=== PATIENT | female | born 1950 | race Caucasian/White ===

== ENCOUNTER → 2017-06-11 | Outpatient (CLI) | END | disposition home or self-care (01) ==

== ENCOUNTER → 2017-06-18 | Outpatient (CLI) | payer OTHER ==
[~2017-06-18] MED LIST: ALBU90OI6 INH; AMLO10 PO; AMLO5 PO; AMOCLA875 PO; AMOX500 PO; ASPI325 PO; Adult Low Dose81 MG PO; BUME1 PO; Bactrim Ds Tab1 EACH PO; CARV25 PO; CARV6.25 PO; CEFP200 PO; CEPH500 PO; CHOL10002 PO; CITA20 PO; CLON.1 PO; CLON.5 PO; CLOP75 PO; Carvedilol12.5 MG PO; Citalopram HBr40 MG PO; DOCU100 PO; Desyrel50 MG PO; ENOX120I SQ; FAMO20 PO; FAMO40 PO; FIBER LAXATIVE; FURO20 PO; FURO40 PO; GABA100 PO; GABA300 PO; GAVILAX17 GM PO; GUAI600T33 PO; HYDACE5325 PO; HYDRA25 PO; INSLI100I; INSLI100I SC; INSULANI SC; INSULANPEN SC; ISOMON30 PO; Isosorbide Mono30 MG PO; Keflex500 MG PO; LEVO750 PO; LISI20 PO; LISI5 PO; LOSA25 PO; Lasix20 MG PO; MECL25 PO; METF500 PO; METF500C PO; METO2.5 PO; MULTIVITAMIN; MULVITMIND PO; Milk Of Ma400 MG/5 M PO; Multiple Vitam1 EAC1 PO; NITR.4SL SL; NITR.4TPA TOP; NITROSTAT; Norco 10-325 T1 EACH PO; Novolog Fl100 UNIT/1 SQ; Novolog100 UNIT/2; Nystop60 GM TOP; OMEPRAZOLE MAGN20 MG PO; ONDA4ODT PO; OXYC15ER PO; OXYCODONE IR 5MG; POTCHL10ER PO; POTCHL20ER PO; RANO500T PO; SACC250C PO; SENN187 PO; SIMV40 PO; SPIR25 PO; Solaraze100 GM TOP; TORSE20 PO; TOUJEO SOL300 UNIT/1 SC; Tylenol325 MG PO; WARF1 PO; WARF5 PO; Zofran Odt4 MG SL
== END | disposition home or self-care (01) ==
LOC: LAB 14:44
DX: L08.9 Local infection of the skin and subcutaneous tissue, unspecified (principal)
CPT/HCPCS: 87070; 87075; 87205

== ENCOUNTER 2017-06-19 11:41 | Emergency (ER) | payer OTHER ==
[~2017-06-19] VITALS: Ht 157.5 cm; Wt 120.2 kg
[~2017-06-19 11:41] MED LIST changes: -ALBU90OI6 INH; -BUME1 PO; -CEFP200 PO; -CEPH500 PO; -Carvedilol12.5 MG PO; -Citalopram HBr40 MG PO; -GAVILAX17 GM PO; -GUAI600T33 PO; -LEVO750 PO; -LOSA25 PO; -METO2.5 PO; -Milk Of Ma400 MG/5 M PO; -Novolog100 UNIT/2; -Nystop60 GM TOP; -ONDA4ODT PO; -SENN187 PO; -Solaraze100 GM TOP; -TORSE20 PO; -Tylenol325 MG PO
[2017-06-19] MEDS ORDERED: CEPH500 PO (13:30)
[2017-06-19] MEDS ORDERED: FURO40 PO (13:31)
[2017-06-19] MEDS ORDERED: Solaraze100 GM TOP (13:38)
[2018-03-06] MEDS ORDERED: GUAI600T33 PO (16:32)
[2018-03-06] MEDS ORDERED: CEFP200 PO (16:32)
[2018-03-06] MEDS ORDERED: LEVO750 PO (16:32)
[2018-03-06] MEDS ORDERED: SACC250C PO (16:33)
[2018-03-06] MEDS ORDERED: LOSA25 PO (16:38)
== END 2017-06-19 14:59 | disposition home or self-care (01) ==
LOC: ER 11:41
DX: L72.9 Follicular cyst of the skin and subcutaneous tissue, unspecified (principal); R06.02 Shortness of breath; E66.01 Morbid (severe) obesity due to excess calories; Z86.73 Personal history of transient ischemic attack (TIA), and cerebral infarction without residual deficits; R53.1 Weakness; Z89.611 Acquired absence of right leg above knee; Z88.1 Allergy status to other antibiotic agents; Z88.5 Allergy status to narcotic agent; Z87.891 Personal history of nicotine dependence; Z88.8 Allergy status to other drugs, medicaments and biological substances; Z91.013 Allergy to seafood; Z91.018 Allergy to other foods; Z79.899 Other long term (current) drug therapy; Z79.891 Long term (current) use of opiate analgesic; Z79.82 Long term (current) use of aspirin; Z79.4 Long term (current) use of insulin; E11.9 Type 2 diabetes mellitus without complications; I10 Essential (primary) hypertension; E78.00 Pure hypercholesterolemia, unspecified
CPT/HCPCS: 10061; 99283

== ENCOUNTER 2017-09-03 15:23 | Inpatient (IN) | payer OTHER ==
[~2017-09-03] VITALS: Ht 157.5 cm; Wt 117.7 kg
[~2017-09-03 15:23] MED LIST changes: +CEPH500 PO; +Solaraze100 GM TOP
[2017-09-03] MEDS ORDERED: ALBU90OI6 INH (15:51)
[2017-09-03 16:13] LABS: BASOPHILS ABSOLUTE AUTO 0.09 K/mm3 (0.00-0.23); BASOPHILS PERCENT AUTO 1 % (0-2); EOSINOPHILS ABSOLUTE AUTO 0.21 K/mm3 (0.00-0.68); EOSINOPHILS PERCENT AUTO 3 % (0-6); Hematocrit 35.7 % (33.0-51.0); Hemoglobin 11.6 g/dL (11.5-16.0); IMMATURE GRAN ABSOLUTE AUTO 0.04 K/mm3 (0.00-0.10); IMMATURE GRAN PERCENT AUTO 1 % (0-1); LYMPHOCYTES ABSOLUTE AUTO 0.85 K/mm3 (0.84-5.20); LYMPHOCYTES PERCENT AUTO 11 % (21-46); MONOCYTES ABSOLUTE AUTO 0.97 K/mm3 (0.16-1.47); MONOCYTES PERCENT AUTO 13 % (4-13); Mean Corpuscular HGB 27.6 pg (26.0-34.0); Mean Corpuscular HGB Conc 32.5 g/dL (31.5-36.5); Mean Corpuscular Volume 85 fL (80-100); Mean Platelet Volume 11.4 fL (9.1-12.4); NEUTROPHILS ABSOLUTE AUTO 5.54 K/mm3 (1.96-9.15); NEUTROPHILS PERCENT AUTO 72 % (41-73); Platelet Count 202 K/mm3 (150-400); RDW Coefficient Variation 16.3 % (11.7-14.2)
[2017-09-03 16:30] LABS: Troponin I <0.015 ng/mL (0.000-0.040)
[2017-09-03 16:31] LABS: Alanine Aminotransfer (ALT/SGP 14 U/L (12-78); Albumin, Blood 3.5 g/dL (3.4-5.0); Albumin/Globulin Ratio 0.8 (0.8-1.8); Alk Phos 169 U/L (50-136); Anion Gap 10 mmol/L (6-16); Aspartate Aminotrans (AST/SGOT 11 U/L (12-37); Bilirubin, Total 0.9 mg/dL (0.1-1.0); Blood Urea Nitrogen 33 mg/dL (8-24); Bun/Creatinine Ratio 31.7 (12.0-20.0); CO2, Blood 20 mmol/L (21-32); Chloride, Blood 102 mmol/L (98-108); Creatinine, Blood 1.04 mg/dL (0.40-1.00); Globulin, Blood 4.5 g/dL (2.2-4.0); Glomerular Filtration Rate 56 (60-); Glucose, Blood 230 mg/dL (70-99); Potassium, Blood 4.7 mmol/L (3.5-5.5); Sodium, Blood 132 mmol/L (136-145)
[2017-09-04 00:20] LABS: CPK Creatine Kinase 35 U/L (26-193); Creatine Kinase MB 1.3 ng/mL (0.0-3.6); Creatine Kinase MB Index 3.7 (0.0-4.0); Troponin I <0.015 ng/mL (0.000-0.040)
[2017-09-04 07:43] LABS: Hemoglobin 11.2 g/dL (11.5-16.0); Mean Corpuscular Volume 84 fL (80-100); Mean Platelet Volume 10.3 fL (9.1-12.4); Platelet Count 196 K/mm3 (150-400); RDW Coefficient Variation 16.2 % (11.7-14.2); RDW Standard Deviation 50.3 fL (35.1-46.3); Red Blood Cell Count 4.15 M/mm3 (3.80-5.20); White Blood Cell Count 6.77 K/mm3 (4.00-11.30)
[2017-09-04 07:59] LABS: CPK Creatine Kinase 39 U/L (26-193); Creatine Kinase MB 1.6 ng/mL (0.0-3.6); Creatine Kinase MB Index 4.1 (0.0-4.0); Troponin I <0.015 ng/mL (0.000-0.040)
[2017-09-04 11:33] LABS: Anion Gap 8 mmol/L (6-16); Blood Urea Nitrogen 31 mg/dL (8-24); Bun/Creatinine Ratio 30.4 (12.0-20.0); CO2, Blood 21 mmol/L (21-32); Calcium, Blood 8.7 mg/dL (8.5-10.1); Chloride, Blood 103 mmol/L (98-108); Creatinine, Blood 1.02 mg/dL (0.40-1.00); Glomerular Filtration Rate 58 (60-); Glucose, Blood 129 mg/dL (70-99); Potassium, Blood 4.4 mmol/L (3.5-5.5); Sodium, Blood 132 mmol/L (136-145)
[2017-09-04 12:05] LABS: Phosphorus, Blood 3.6 mg/dL (2.5-4.9)
[2017-09-04 12:06] LABS: Albumin, Blood 3.5 g/dL (3.4-5.0)
[2017-09-05 05:46] LABS: Albumin, Blood 3.4 g/dL (3.4-5.0); Anion Gap 9 mmol/L (6-16); Blood Urea Nitrogen 31 mg/dL (8-24); Bun/Creatinine Ratio 27.9 (12.0-20.0); CO2, Blood 21 mmol/L (21-32); Calcium, Blood 8.9 mg/dL (8.5-10.1); Chloride, Blood 102 mmol/L (98-108); Creatinine, Blood 1.11 mg/dL (0.40-1.00); Glomerular Filtration Rate 52 (60-); Glucose, Blood 179 mg/dL (70-99); Magnesium, Blood 2.3 mg/dL (1.6-2.4); Phosphorus, Blood 3.9 mg/dL (2.5-4.9); Potassium, Blood 4.2 mmol/L (3.5-5.5); Sodium, Blood 132 mmol/L (136-145)
[2017-09-07 05:56] LABS: BASOPHILS ABSOLUTE AUTO 0.12 K/mm3 (0.00-0.23); BASOPHILS PERCENT AUTO 2 % (0-2); EOSINOPHILS ABSOLUTE AUTO 0.35 K/mm3 (0.00-0.68); EOSINOPHILS PERCENT AUTO 5 % (0-6); Hematocrit 35.8 % (33.0-51.0); Hemoglobin 11.6 g/dL (11.5-16.0); IMMATURE GRAN ABSOLUTE AUTO 0.04 K/mm3 (0.00-0.10); IMMATURE GRAN PERCENT AUTO 1 % (0-1); LYMPHOCYTES ABSOLUTE AUTO 1.22 K/mm3 (0.84-5.20); LYMPHOCYTES PERCENT AUTO 17 % (21-46); MONOCYTES ABSOLUTE AUTO 1.04 K/mm3 (0.16-1.47); MONOCYTES PERCENT AUTO 14 % (4-13); Mean Corpuscular HGB 27.2 pg (26.0-34.0); Mean Corpuscular HGB Conc 32.4 g/dL (31.5-36.5); Mean Corpuscular Volume 84 fL (80-100); Mean Platelet Volume 11.2 fL (9.1-12.4); NEUTROPHILS ABSOLUTE AUTO 4.61 K/mm3 (1.96-9.15); NEUTROPHILS PERCENT AUTO 63 % (41-73); Platelet Count 193 K/mm3 (150-400); RDW Coefficient Variation 16.5 % (11.7-14.2); RDW Standard Deviation 50.1 fL (35.1-46.3); Red Blood Cell Count 4.27 M/mm3 (3.80-5.20); White Blood Cell Count 7.38 K/mm3 (4.00-11.30)
[2017-09-07 06:15] LABS: Albumin, Blood 3.8 g/dL (3.4-5.0); Albumin/Globulin Ratio 0.9 (0.8-1.8); Bilirubin, Total 0.7 mg/dL (0.1-1.0); Bun/Creatinine Ratio 28.3 (12.0-20.0); Calcium, Blood 8.8 mg/dL (8.5-10.1); Creatinine, Blood 1.27 mg/dL (0.40-1.00); Globulin, Blood 4.3 g/dL (2.2-4.0); Potassium, Blood 4.6 mmol/L (3.5-5.5); Total Protein, Blood 8.1 g/dL (6.4-8.2)
[2017-09-07] MEDS ORDERED: GAVILAX17 GM PO (13:19)
== END 2017-09-07 16:59 | disposition home health service (06) | DRG 292 ==
LOC: ER 15:23 → MEDS 19:02 → ENPENDDIS 09-07 09:30 → MEDS 09-07 16:59
PROVIDERS: Emergency Medicine; Internal Medicine
DX: I11.0 Hypertensive heart disease with heart failure (principal); I69.951 Hemiplegia and hemiparesis following unspecified cerebrovascular disease affecting right dominant side; N17.9 Acute kidney failure, unspecified; E87.1 Hypo-osmolality and hyponatremia; J98.11 Atelectasis; Z68.41 Body mass index [BMI] 40.0-44.9, adult; I50.33 Acute on chronic diastolic (congestive) heart failure; E66.01 Morbid (severe) obesity due to excess calories; E78.5 Hyperlipidemia, unspecified; E11.42 Type 2 diabetes mellitus with diabetic polyneuropathy; E11.51 Type 2 diabetes mellitus with diabetic peripheral angiopathy without gangrene; I25.10 Atherosclerotic heart disease of native coronary artery without angina pectoris; G47.33 Obstructive sleep apnea (adult) (pediatric); K21.9 Gastro-esophageal reflux disease without esophagitis; G89.29 Other chronic pain; R10.9 Unspecified abdominal pain; F32.9 Major depressive disorder, single episode, unspecified; Z89.511 Acquired absence of right leg below knee; E11.65 Type 2 diabetes mellitus with hyperglycemia; Z74.01 Bed confinement status; Z99.3 Dependence on wheelchair; Z95.1 Presence of aortocoronary bypass graft; Z88.8 Allergy status to other drugs, medicaments and biological substances; Z88.5 Allergy status to narcotic agent; Z91.013 Allergy to seafood; Z91.018 Allergy to other foods; Z79.82 Long term (current) use of aspirin; Z79.4 Long term (current) use of insulin; Z79.899 Other long term (current) drug therapy; Z87.891 Personal history of nicotine dependence; Z85.038 Personal history of other malignant neoplasm of large intestine
CPT/HCPCS: 36415; 71045; 74176; 80053; 80069; 82550; 82553; 82947; 83690; 83735; 83880; 84145; 84443; 84484; 85025; 85027; 92526; 92610; 93005; 93010; 94640; 94760; 94762; 99285; C8929; G8996; G8997; G8998; J0696; J1650; J1940; J7030; Q9957

== ENCOUNTER → 2017-09-19 | Outpatient (CLI) | payer OTHER ==
[~2017-09-19] MED LIST changes: +ALBU90OI6 INH; +GAVILAX17 GM PO
[2017-09-19 16:03] LABS: Bun/Creatinine Ratio 22.5 (12.0-20.0); Calcium, Blood 9.1 mg/dL (8.5-10.1); Creatinine, Blood 1.02 mg/dL (0.40-1.00); Potassium, Blood 5.1 mmol/L (3.5-5.5)
== END ==
LOC: LAB SHORT 15:28 → LAB 15:28
PROVIDERS: Registered Nurse
DX: R60.9 Edema, unspecified (principal)
CPT/HCPCS: 80048; 83880

== ENCOUNTER → 2017-10-10 | Outpatient (CLI) | payer OTHER ==
[2017-10-11 13:43] LABS: Bun/Creatinine Ratio 40.4 (12.0-20.0); Creatinine, Blood 1.14 mg/dL (0.40-1.00); Potassium, Blood 4.4 mmol/L (3.5-5.5)
== END ==
LOC: LAB 12:25 → LAB SHORT 12:25
PROVIDERS: Registered Nurse
DX: I50.9 Heart failure, unspecified (principal)
CPT/HCPCS: 80048

== ENCOUNTER 2017-11-17 07:17 | Inpatient (IN) | payer OTHER ==
[~2017-11-17] VITALS: Ht 157.5 cm; Wt 112.5 kg
[2017-11-17 08:05] LABS: BASOPHILS ABSOLUTE AUTO 0.06 K/mm3 (0.00-0.23); BASOPHILS PERCENT AUTO 1 % (0-2); EOSINOPHILS ABSOLUTE AUTO 0.19 K/mm3 (0.00-0.68); EOSINOPHILS PERCENT AUTO 2 % (0-6); Hemoglobin 11.1 g/dL (11.5-16.0); IMMATURE GRAN ABSOLUTE AUTO 0.07 K/mm3 (0.00-0.10); IMMATURE GRAN PERCENT AUTO 1 % (0-1); LYMPHOCYTES ABSOLUTE AUTO 0.61 K/mm3 (0.84-5.20); LYMPHOCYTES PERCENT AUTO 5 % (21-46); MONOCYTES ABSOLUTE AUTO 1.36 K/mm3 (0.16-1.47); MONOCYTES PERCENT AUTO 11 % (4-13); Mean Corpuscular HGB 26.7 pg (26.0-34.0); Mean Corpuscular HGB Conc 32.6 g/dL (31.5-36.5); Mean Corpuscular Volume 82 fL (80-100); Mean Platelet Volume 11.7 fL (9.1-12.4); NEUTROPHILS ABSOLUTE AUTO 9.93 K/mm3 (1.96-9.15); NEUTROPHILS PERCENT AUTO 81 % (41-73); Platelet Count 187 K/mm3 (150-400); RDW Standard Deviation 44.6 fL (35.1-46.3); Red Blood Cell Count 4.16 M/mm3 (3.80-5.20); White Blood Cell Count 12.22 K/mm3 (4.00-11.30)
[2017-11-17 08:22] LABS: Albumin, Blood 3.5 g/dL (3.4-5.0); Albumin/Globulin Ratio 0.8 (0.8-1.8); Bilirubin, Total 1.2 mg/dL (0.1-1.0); Bun/Creatinine Ratio 27.7 (12.0-20.0); Calcium, Blood 8.7 mg/dL (8.5-10.1); Creatinine, Blood 1.73 mg/dL (0.40-1.00); Globulin, Blood 4.4 g/dL (2.2-4.0); Potassium, Blood 5.1 mmol/L (3.5-5.5); Total Protein, Blood 7.9 g/dL (6.4-8.2)
[2017-11-17 08:33] LABS: International Normalized Ratio 1.31; Prothrombin Time Results 13.3 Sec (9.7-11.5)
[2017-11-17] MEDS ORDERED: Citalopram HBr40 MG PO (09:35)
[2017-11-17] MEDS ORDERED: Norco 10-325 T1 EACH PO (09:36)
[2017-11-17] MEDS ORDERED: TOUJEO SOL300 UNIT/1 SC (09:46)
[2017-11-17] MEDS ORDERED: Novolog100 UNIT/2 (09:47)
[2017-11-17] MEDS ORDERED: TORSE20 PO (09:49)
[2017-11-17] MEDS ORDERED: LISI20 PO (09:49)
[2017-11-17] MEDS ORDERED: Carvedilol12.5 MG PO (09:50)
[2017-11-17] MEDS ORDERED: CARV6.25 PO (09:50)
[2017-11-17] MEDS ORDERED: AMLO10 PO (09:51)
[2017-11-18 04:54] LABS: BASOPHILS ABSOLUTE AUTO 0.07 K/mm3 (0.00-0.23); BASOPHILS PERCENT AUTO 1 % (0-2); EOSINOPHILS ABSOLUTE AUTO 0.24 K/mm3 (0.00-0.68); EOSINOPHILS PERCENT AUTO 2 % (0-6); Hematocrit 32.7 % (33.0-51.0); Hemoglobin 10.7 g/dL (11.5-16.0); IMMATURE GRAN ABSOLUTE AUTO 0.08 K/mm3 (0.00-0.10); IMMATURE GRAN PERCENT AUTO 1 % (0-1); LYMPHOCYTES PERCENT AUTO 6 % (21-46); MONOCYTES PERCENT AUTO 13 % (4-13); Mean Corpuscular HGB 27.1 pg (26.0-34.0); Mean Corpuscular HGB Conc 32.7 g/dL (31.5-36.5); Mean Corpuscular Volume 83 fL (80-100); Mean Platelet Volume 11.8 fL (9.1-12.4); NEUTROPHILS ABSOLUTE AUTO 10.01 K/mm3 (1.96-9.15); NEUTROPHILS PERCENT AUTO 78 % (41-73); Platelet Count 175 K/mm3 (150-400); RDW Standard Deviation 45.6 fL (35.1-46.3); Red Blood Cell Count 3.95 M/mm3 (3.80-5.20)
[2017-11-18 05:12] LABS: Bun/Creatinine Ratio 27.7 (12.0-20.0); Calcium, Blood 8.7 mg/dL (8.5-10.1); Creatinine, Blood 2.02 mg/dL (0.40-1.00); Potassium, Blood 5.1 mmol/L (3.5-5.5)
[2017-11-19 05:25] LABS: BASOPHILS ABSOLUTE AUTO 0.08 K/mm3 (0.00-0.23); BASOPHILS PERCENT AUTO 0 % (0-2); EOSINOPHILS ABSOLUTE AUTO 0.24 K/mm3 (0.00-0.68); EOSINOPHILS PERCENT AUTO 1 % (0-6); Hematocrit 31.7 % (33.0-51.0); Hemoglobin 10.4 g/dL (11.5-16.0); IMMATURE GRAN ABSOLUTE AUTO 0.17 K/mm3 (0.00-0.10); IMMATURE GRAN PERCENT AUTO 1 % (0-1); LYMPHOCYTES ABSOLUTE AUTO 0.89 K/mm3 (0.84-5.20); LYMPHOCYTES PERCENT AUTO 5 % (21-46); MONOCYTES ABSOLUTE AUTO 2.66 K/mm3 (0.16-1.47); MONOCYTES PERCENT AUTO 15 % (4-13); Mean Corpuscular HGB 27.5 pg (26.0-34.0); Mean Corpuscular HGB Conc 32.8 g/dL (31.5-36.5); Mean Corpuscular Volume 84 fL (80-100); Mean Platelet Volume 11.6 fL (9.1-12.4); NEUTROPHILS ABSOLUTE AUTO 13.95 K/mm3 (1.96-9.15); NEUTROPHILS PERCENT AUTO 78 % (41-73); Platelet Count 185 K/mm3 (150-400); RDW Coefficient Variation 15.3 % (11.7-14.2); RDW Standard Deviation 46.9 fL (35.1-46.3); Red Blood Cell Count 3.78 M/mm3 (3.80-5.20); White Blood Cell Count 17.99 K/mm3 (4.00-11.30)
[2017-11-19 05:35] LABS: Bun/Creatinine Ratio 27.8 (12.0-20.0); Calcium, Blood 8.3 mg/dL (8.5-10.1); Creatinine, Blood 2.3 mg/dL (0.40-1.00); Potassium, Blood 5.6 mmol/L (3.5-5.5)
[2017-11-19 17:29] LABS: Anion Gap 10 mmol/L (6-16); Blood Urea Nitrogen 69 mg/dL (8-24); Bun/Creatinine Ratio 27.3 (12.0-20.0); CO2, Blood 23 mmol/L (21-32); CPK Creatine Kinase 36 U/L (26-193); Calcium, Blood 8.9 mg/dL (8.5-10.1); Chloride, Blood 91 mmol/L (98-108); Creatinine, Blood 2.53 mg/dL (0.40-1.00); Glomerular Filtration Rate 20 (60-); Glucose, Blood 95 mg/dL (70-99); Phosphorus, Blood 4.5 mg/dL (2.5-4.9); Potassium, Blood 5.8 mmol/L (3.5-5.5); Sodium, Blood 124 mmol/L (136-145)
[2017-11-19 18:00] LABS: PCO2 Arterial 36.5 mmHg (35-45); PO2 Arterial 90.4 mmHg (80-100); pH Blood Arterial 7.35 (7.35-7.45)
[2017-11-19 18:15] LABS: Appearance, Urine Clear (Clear); Blood, Urine Neg (Neg); Color, Urine Yellow (P-Yellow); Glucose Qualitative, Urine Neg (Neg); Ketones, Urine 1+ (Neg); Leukocyte Esterase, Urine 1+ (Neg); Nitrite, Urine Neg (Neg); Protein, Urine 1+ (Neg); Urobilinogen, Urine NORM (Normal)
[2017-11-19 18:21] LABS: Bilirubin, Urine 1+ (Neg)
[2017-11-19 18:22] LABS: Bacteria Few /hpf; Red Blood Cells, Urine 0-2 /hpf (0-2); Squamous Epithelial Cells Many /hpf (Few); White Blood Cells, Urine 0-2 /hpf (0-5)
[2017-11-19 18:54] LABS: Osmolality, Urine 308 mos/kg (15-1400); Sodium, Urine, Random 16 mmol/L (20-110)
[2017-11-20 05:17] LABS: Albumin, Blood 2.9 g/dL (3.4-5.0); Anion Gap 12 mmol/L (6-16); Blood Urea Nitrogen 69 mg/dL (8-24); Bun/Creatinine Ratio 27.8 (12.0-20.0); CO2, Blood 21 mmol/L (21-32); Calcium, Blood 8.4 mg/dL (8.5-10.1); Chloride, Blood 91 mmol/L (98-108); Creatinine, Blood 2.48 mg/dL (0.40-1.00); Glomerular Filtration Rate 21 (60-); Glucose, Blood 123 mg/dL (70-99); Phosphorus, Blood 4.1 mg/dL (2.5-4.9); Potassium, Blood 5.4 mmol/L (3.5-5.5); Sodium, Blood 124 mmol/L (136-145)
[2017-11-20 15:51] LABS: BASOPHILS ABSOLUTE AUTO 0.06 K/mm3 (0.00-0.23); BASOPHILS PERCENT AUTO 0 % (0-2); EOSINOPHILS ABSOLUTE AUTO 0.19 K/mm3 (0.00-0.68); EOSINOPHILS PERCENT AUTO 1 % (0-6); Hemoglobin 10.1 g/dL (11.5-16.0); IMMATURE GRAN ABSOLUTE AUTO 0.25 K/mm3 (0.00-0.10); IMMATURE GRAN PERCENT AUTO 1 % (0-1); LYMPHOCYTES ABSOLUTE AUTO 0.74 K/mm3 (0.84-5.20); LYMPHOCYTES PERCENT AUTO 4 % (21-46); MONOCYTES ABSOLUTE AUTO 2.54 K/mm3 (0.16-1.47); MONOCYTES PERCENT AUTO 14 % (4-13); Mean Corpuscular HGB 27.2 pg (26.0-34.0); Mean Corpuscular HGB Conc 33.7 g/dL (31.5-36.5); Mean Platelet Volume 10.8 fL (9.1-12.4); NEUTROPHILS ABSOLUTE AUTO 14.34 K/mm3 (1.96-9.15); NEUTROPHILS PERCENT AUTO 79 % (41-73); Platelet Count 181 K/mm3 (150-400); RDW Coefficient Variation 14.9 % (11.7-14.2); RDW Standard Deviation 43.7 fL (35.1-46.3); Red Blood Cell Count 3.71 M/mm3 (3.80-5.20); White Blood Cell Count 18.12 K/mm3 (4.00-11.30)
[2017-11-20 16:02] LABS: Mean Corpuscular Volume 81 fL (80-100)
[2017-11-21 04:11] LABS: BASOPHILS ABSOLUTE AUTO 0.05 K/mm3 (0.00-0.23); BASOPHILS PERCENT AUTO 0 % (0-2); EOSINOPHILS ABSOLUTE AUTO 0.26 K/mm3 (0.00-0.68); EOSINOPHILS PERCENT AUTO 2 % (0-6); Hematocrit 29.8 % (33.0-51.0); Hemoglobin 10.2 g/dL (11.5-16.0); IMMATURE GRAN ABSOLUTE AUTO 0.33 K/mm3 (0.00-0.10); IMMATURE GRAN PERCENT AUTO 2 % (0-1); LYMPHOCYTES ABSOLUTE AUTO 0.96 K/mm3 (0.84-5.20); LYMPHOCYTES PERCENT AUTO 6 % (21-46); MONOCYTES PERCENT AUTO 13 % (4-13); Mean Corpuscular HGB 27.4 pg (26.0-34.0); Mean Corpuscular HGB Conc 34.2 g/dL (31.5-36.5); Mean Corpuscular Volume 80 fL (80-100); Mean Platelet Volume 10.7 fL (9.1-12.4); NEUTROPHILS ABSOLUTE AUTO 13.53 K/mm3 (1.96-9.15); NEUTROPHILS PERCENT AUTO 78 % (41-73); Platelet Count 197 K/mm3 (150-400); RDW Coefficient Variation 14.7 % (11.7-14.2); Red Blood Cell Count 3.72 M/mm3 (3.80-5.20); White Blood Cell Count 17.33 K/mm3 (4.00-11.30)
[2017-11-21 04:27] LABS: Bun/Creatinine Ratio 27.8 (12.0-20.0); Calcium, Blood 8.2 mg/dL (8.5-10.1); Creatinine, Blood 2.48 mg/dL (0.40-1.00); Potassium, Blood 4.8 mmol/L (3.5-5.5)
[2017-11-21 17:57] LABS: Albumin, Blood 2.6 g/dL (3.4-5.0); Anion Gap 12 mmol/L (6-16); Blood Urea Nitrogen 70 mg/dL (8-24); Bun/Creatinine Ratio 24.7 (12.0-20.0); CO2, Blood 22 mmol/L (21-32); Calcium, Blood 8.8 mg/dL (8.5-10.1); Chloride, Blood 88 mmol/L (98-108); Creatinine, Blood 2.83 mg/dL (0.40-1.00); Glomerular Filtration Rate 18 (60-); Glucose, Blood 118 mg/dL (70-99); Phosphorus, Blood 3.8 mg/dL (2.5-4.9); Potassium, Blood 4.9 mmol/L (3.5-5.5); Sodium, Blood 122 mmol/L (136-145)
[2017-11-22 05:02] LABS: BASOPHILS ABSOLUTE AUTO 0.07 K/mm3 (0.00-0.23); BASOPHILS PERCENT AUTO 0 % (0-2); EOSINOPHILS ABSOLUTE AUTO 0.33 K/mm3 (0.00-0.68); EOSINOPHILS PERCENT AUTO 2 % (0-6); Hematocrit 29.6 % (33.0-51.0); Hemoglobin 10.2 g/dL (11.5-16.0); IMMATURE GRAN PERCENT AUTO 3 % (0-1); LYMPHOCYTES ABSOLUTE AUTO 0.92 K/mm3 (0.84-5.20); LYMPHOCYTES PERCENT AUTO 6 % (21-46); MONOCYTES ABSOLUTE AUTO 1.85 K/mm3 (0.16-1.47); MONOCYTES PERCENT AUTO 11 % (4-13); Mean Corpuscular HGB 27.3 pg (26.0-34.0); Mean Corpuscular HGB Conc 34.5 g/dL (31.5-36.5); Mean Corpuscular Volume 79 fL (80-100); NEUTROPHILS ABSOLUTE AUTO 13.15 K/mm3 (1.96-9.15); NEUTROPHILS PERCENT AUTO 78 % (41-73); Platelet Count 210 K/mm3 (150-400); RDW Coefficient Variation 14.7 % (11.7-14.2); RDW Standard Deviation 42.8 fL (35.1-46.3); Red Blood Cell Count 3.73 M/mm3 (3.80-5.20); White Blood Cell Count 16.82 K/mm3 (4.00-11.30)
[2017-11-22 05:14] LABS: Bun/Creatinine Ratio 24.3 (12.0-20.0); Calcium, Blood 8.4 mg/dL (8.5-10.1); Creatinine, Blood 2.92 mg/dL (0.40-1.00); Potassium, Blood 4.9 mmol/L (3.5-5.5)
[2017-11-22 13:09] LABS: ALBUMIN 3.2 g/dL (2.9-4.4); ALPHA-1-GLOBULIN 0.4 g/dL (0.0-0.4); ALPHA-2-GLOBULIN 0.6 g/dL (0.4-1.0); BETA GLOBULIN 0.9 g/dL (0.7-1.3); GAMMA GLOBULIN 1.5 g/dL (0.4-1.8); GLOBULIN, TOTAL 3.4 g/dL (2.2-3.9); IMMUNOGLOBULIN A, QN, SERUM 364 mg/dL (87-352); IMMUNOGLOBULIN G, QN, SERUM 1226 mg/dL (700-1600); IMMUNOGLOBULIN M, QN, SERUM 168 mg/dL (26-217); M-SPIKE Not Observed g/dL (Not Observed); PROTEIN, TOTAL, SERUM 6.6 g/dL (6.0-8.5)
[2017-11-22 13:43] LABS: PCO2 Arterial 38.7 mmHg (35-45); pH Blood Arterial 7.37 (7.35-7.45)
[2017-11-23 04:58] LABS: BASOPHILS ABSOLUTE AUTO 0.05 K/mm3 (0.00-0.23); BASOPHILS PERCENT AUTO 0 % (0-2); EOSINOPHILS ABSOLUTE AUTO 0.28 K/mm3 (0.00-0.68); EOSINOPHILS PERCENT AUTO 2 % (0-6); Hematocrit 28.9 % (33.0-51.0); IMMATURE GRAN PERCENT AUTO 3 % (0-1); LYMPHOCYTES ABSOLUTE AUTO 0.86 K/mm3 (0.84-5.20); LYMPHOCYTES PERCENT AUTO 6 % (21-46); MONOCYTES PERCENT AUTO 10 % (4-13); Mean Corpuscular HGB 27.2 pg (26.0-34.0); Mean Corpuscular HGB Conc 34.6 g/dL (31.5-36.5); Mean Corpuscular Volume 79 fL (80-100); Mean Platelet Volume 10.4 fL (9.1-12.4); NEUTROPHILS ABSOLUTE AUTO 12.05 K/mm3 (1.96-9.15); NEUTROPHILS PERCENT AUTO 80 % (41-73); Platelet Count 202 K/mm3 (150-400); RDW Coefficient Variation 14.6 % (11.7-14.2); RDW Standard Deviation 42.3 fL (35.1-46.3); Red Blood Cell Count 3.67 M/mm3 (3.80-5.20); White Blood Cell Count 15.14 K/mm3 (4.00-11.30)
[2017-11-23 05:23] LABS: Anion Gap 13 mmol/L (6-16); Blood Urea Nitrogen 75 mg/dL (8-24); Bun/Creatinine Ratio 23.4 (12.0-20.0); CO2, Blood 20 mmol/L (21-32); Calcium, Blood 8.2 mg/dL (8.5-10.1); Chloride, Blood 87 mmol/L (98-108); Glomerular Filtration Rate 15 (60-); Glucose, Blood 89 mg/dL (70-99); Potassium, Blood 5.1 mmol/L (3.5-5.5); Sodium, Blood 120 mmol/L (136-145); Vancomycin, Random 13.4 ug/mL
[2017-11-23 17:33] LABS: Eosinophils-Raw #,Urine 11
[2017-11-23 17:51] LABS: White Blood Cells Urine 0-2 /hpf (0-5)
[2017-11-23 18:27] LABS: CPK Creatine Kinase 24 U/L (26-193); Lactate Dehydrogenase (Ld),Bld 132 U/L (100-240)
[2017-11-24 04:54] LABS: BASOPHILS ABSOLUTE AUTO 0.07 K/mm3 (0.00-0.23); BASOPHILS PERCENT AUTO 1 % (0-2); EOSINOPHILS ABSOLUTE AUTO 0.27 K/mm3 (0.00-0.68); EOSINOPHILS PERCENT AUTO 2 % (0-6); IMMATURE GRAN ABSOLUTE AUTO 0.46 K/mm3 (0.00-0.10); IMMATURE GRAN PERCENT AUTO 4 % (0-1); LYMPHOCYTES ABSOLUTE AUTO 1.01 K/mm3 (0.84-5.20); LYMPHOCYTES PERCENT AUTO 8 % (21-46); MONOCYTES ABSOLUTE AUTO 1.11 K/mm3 (0.16-1.47); MONOCYTES PERCENT AUTO 9 % (4-13); Mean Corpuscular HGB 27.3 pg (26.0-34.0); Mean Corpuscular HGB Conc 34.5 g/dL (31.5-36.5); Mean Corpuscular Volume 79 fL (80-100); Mean Platelet Volume 10.7 fL (9.1-12.4); NEUTROPHILS ABSOLUTE AUTO 10.14 K/mm3 (1.96-9.15); NEUTROPHILS PERCENT AUTO 78 % (41-73); Platelet Count 196 K/mm3 (150-400); RDW Coefficient Variation 14.7 % (11.7-14.2); RDW Standard Deviation 42.5 fL (35.1-46.3); Red Blood Cell Count 3.66 M/mm3 (3.80-5.20); White Blood Cell Count 13.06 K/mm3 (4.00-11.30)
[2017-11-24 05:23] LABS: Albumin, Blood 2.8 g/dL (3.4-5.0); Anion Gap 13 mmol/L (6-16); Blood Urea Nitrogen 77 mg/dL (8-24); Bun/Creatinine Ratio 21.8 (12.0-20.0); CO2, Blood 22 mmol/L (21-32); Calcium, Blood 8.2 mg/dL (8.5-10.1); Chloride, Blood 85 mmol/L (98-108); Creatinine, Blood 3.54 mg/dL (0.40-1.00); Glomerular Filtration Rate 14 (60-); Glucose, Blood 79 mg/dL (70-99); Phosphorus, Blood 4.3 mg/dL (2.5-4.9); Potassium, Blood 5.1 mmol/L (3.5-5.5); Sodium, Blood 120 mmol/L (136-145); Vancomycin, Random 19.8 ug/mL
[2017-11-25 04:47] LABS: BASOPHILS ABSOLUTE AUTO 0.07 K/mm3 (0.00-0.23); BASOPHILS PERCENT AUTO 1 % (0-2); EOSINOPHILS ABSOLUTE AUTO 0.17 K/mm3 (0.00-0.68); EOSINOPHILS PERCENT AUTO 1 % (0-6); Hematocrit 29.3 % (33.0-51.0); Hemoglobin 9.8 g/dL (11.5-16.0); IMMATURE GRAN ABSOLUTE AUTO 0.51 K/mm3 (0.00-0.10); IMMATURE GRAN PERCENT AUTO 3 % (0-1); LYMPHOCYTES ABSOLUTE AUTO 0.83 K/mm3 (0.84-5.20); LYMPHOCYTES PERCENT AUTO 6 % (21-46); MONOCYTES ABSOLUTE AUTO 1.22 K/mm3 (0.16-1.47); MONOCYTES PERCENT AUTO 8 % (4-13); Mean Corpuscular HGB 26.7 pg (26.0-34.0); Mean Corpuscular HGB Conc 33.4 g/dL (31.5-36.5); Mean Corpuscular Volume 80 fL (80-100); Mean Platelet Volume 10.6 fL (9.1-12.4); NEUTROPHILS ABSOLUTE AUTO 12.03 K/mm3 (1.96-9.15); NEUTROPHILS PERCENT AUTO 81 % (41-73); Platelet Count 190 K/mm3 (150-400); RDW Coefficient Variation 14.8 % (11.7-14.2); RDW Standard Deviation 42.9 fL (35.1-46.3); Red Blood Cell Count 3.67 M/mm3 (3.80-5.20); White Blood Cell Count 14.83 K/mm3 (4.00-11.30)
[2017-11-25 05:18] LABS: Albumin, Blood 2.6 g/dL (3.4-5.0); Anion Gap 11 mmol/L (6-16); Blood Urea Nitrogen 79 mg/dL (8-24); Bun/Creatinine Ratio 20.4 (12.0-20.0); CO2, Blood 24 mmol/L (21-32); Calcium, Blood 7.9 mg/dL (8.5-10.1); Chloride, Blood 84 mmol/L (98-108); Creatinine, Blood 3.88 mg/dL (0.40-1.00); Glomerular Filtration Rate 12 (60-); Glucose, Blood 87 mg/dL (70-99); Phosphorus, Blood 4.4 mg/dL (2.5-4.9); Potassium, Blood 5.1 mmol/L (3.5-5.5); Sodium, Blood 119 mmol/L (136-145); Vancomycin, Random 17.1 ug/mL
[2017-11-25 09:41] LABS: Albumin, Blood 2.7 g/dL (3.4-5.0); Anion Gap 13 mmol/L (6-16); Blood Urea Nitrogen 81 mg/dL (8-24); Bun/Creatinine Ratio 20.9 (12.0-20.0); CO2, Blood 23 mmol/L (21-32); Calcium, Blood 8.1 mg/dL (8.5-10.1); Chloride, Blood 85 mmol/L (98-108); Creatinine, Blood 3.87 mg/dL (0.40-1.00); Glomerular Filtration Rate 12 (60-); Glucose, Blood 86 mg/dL (70-99); Phosphorus, Blood 4.5 mg/dL (2.5-4.9); Potassium, Blood 5.2 mmol/L (3.5-5.5); Sodium, Blood 121 mmol/L (136-145)
[2017-11-26 04:49] LABS: BASOPHILS ABSOLUTE AUTO 0.08 K/mm3 (0.00-0.23); BASOPHILS PERCENT AUTO 1 % (0-2); EOSINOPHILS PERCENT AUTO 1 % (0-6); Hematocrit 29.7 % (33.0-51.0); Hemoglobin 9.9 g/dL (11.5-16.0); IMMATURE GRAN ABSOLUTE AUTO 0.55 K/mm3 (0.00-0.10); IMMATURE GRAN PERCENT AUTO 4 % (0-1); LYMPHOCYTES ABSOLUTE AUTO 0.89 K/mm3 (0.84-5.20); LYMPHOCYTES PERCENT AUTO 6 % (21-46); MONOCYTES ABSOLUTE AUTO 1.17 K/mm3 (0.16-1.47); MONOCYTES PERCENT AUTO 8 % (4-13); Mean Corpuscular HGB 26.4 pg (26.0-34.0); Mean Corpuscular HGB Conc 33.3 g/dL (31.5-36.5); Mean Corpuscular Volume 79 fL (80-100); Mean Platelet Volume 10.9 fL (9.1-12.4); NEUTROPHILS ABSOLUTE AUTO 11.01 K/mm3 (1.96-9.15); NEUTROPHILS PERCENT AUTO 79 % (41-73); Platelet Count 196 K/mm3 (150-400); Red Blood Cell Count 3.75 M/mm3 (3.80-5.20)
[2017-11-26 05:18] LABS: Albumin, Blood 2.9 g/dL (3.4-5.0); Anion Gap 11 mmol/L (6-16); Blood Urea Nitrogen 81 mg/dL (8-24); Bun/Creatinine Ratio 20.4 (12.0-20.0); CO2, Blood 25 mmol/L (21-32); Calcium, Blood 8.1 mg/dL (8.5-10.1); Chloride, Blood 83 mmol/L (98-108); Creatinine, Blood 3.97 mg/dL (0.40-1.00); Glomerular Filtration Rate 12 (60-); Glucose, Blood 94 mg/dL (70-99); Phosphorus, Blood 4.4 mg/dL (2.5-4.9); Sodium, Blood 119 mmol/L (136-145)
[2017-11-27 04:30] LABS: BASOPHILS ABSOLUTE AUTO 0.07 K/mm3 (0.00-0.23); BASOPHILS PERCENT AUTO 1 % (0-2); EOSINOPHILS ABSOLUTE AUTO 0.25 K/mm3 (0.00-0.68); EOSINOPHILS PERCENT AUTO 2 % (0-6); Hematocrit 28.5 % (33.0-51.0); Hemoglobin 9.8 g/dL (11.5-16.0); IMMATURE GRAN ABSOLUTE AUTO 0.58 K/mm3 (0.00-0.10); IMMATURE GRAN PERCENT AUTO 4 % (0-1); LYMPHOCYTES ABSOLUTE AUTO 0.87 K/mm3 (0.84-5.20); LYMPHOCYTES PERCENT AUTO 6 % (21-46); MONOCYTES ABSOLUTE AUTO 1.15 K/mm3 (0.16-1.47); MONOCYTES PERCENT AUTO 8 % (4-13); Mean Corpuscular HGB 27.3 pg (26.0-34.0); Mean Corpuscular HGB Conc 34.4 g/dL (31.5-36.5); Mean Corpuscular Volume 79 fL (80-100); Mean Platelet Volume 10.8 fL (9.1-12.4); NEUTROPHILS ABSOLUTE AUTO 11.06 K/mm3 (1.96-9.15); NEUTROPHILS PERCENT AUTO 79 % (41-73); Platelet Count 188 K/mm3 (150-400); RDW Coefficient Variation 14.7 % (11.7-14.2); RDW Standard Deviation 42.5 fL (35.1-46.3); Red Blood Cell Count 3.59 M/mm3 (3.80-5.20); White Blood Cell Count 13.98 K/mm3 (4.00-11.30)
[2017-11-27 04:49] LABS: Albumin, Blood 2.7 g/dL (3.4-5.0); Anion Gap 12 mmol/L (6-16); Blood Urea Nitrogen 83 mg/dL (8-24); CHOL/HDL RATIO 6.5; CO2, Blood 25 mmol/L (21-32); Chloride, Blood 83 mmol/L (98-108); Cholesterol 98 mg/dL (50-200); Creatinine, Blood 3.61 mg/dL (0.40-1.00); Glomerular Filtration Rate 13 (60-); Glucose, Blood 98 mg/dL (70-99); HDL Cholesterol 15 mg/dL (>39); LDL/HDL RATIO 3.4; Low Density Lipoprotein Chol 51 mg/dL (0-110); Potassium, Blood 4.8 mmol/L (3.5-5.5); Sodium, Blood 120 mmol/L (136-145); Triglycerides 160 mg/dL (30-160); Vancomycin, Random 11.9 ug/mL; Very Low Density Lipoprot Chol 32 mg/dL (6-32)
[2017-11-28 05:00] LABS: BASOPHILS ABSOLUTE AUTO 0.06 K/mm3 (0.00-0.23); BASOPHILS PERCENT AUTO 1 % (0-2); EOSINOPHILS ABSOLUTE AUTO 0.21 K/mm3 (0.00-0.68); EOSINOPHILS PERCENT AUTO 2 % (0-6); Hemoglobin 10.3 g/dL (11.5-16.0); IMMATURE GRAN ABSOLUTE AUTO 0.51 K/mm3 (0.00-0.10); IMMATURE GRAN PERCENT AUTO 4 % (0-1); LYMPHOCYTES PERCENT AUTO 7 % (21-46); MONOCYTES ABSOLUTE AUTO 1.25 K/mm3 (0.16-1.47); MONOCYTES PERCENT AUTO 10 % (4-13); Mean Corpuscular HGB 27.3 pg (26.0-34.0); Mean Corpuscular HGB Conc 34.3 g/dL (31.5-36.5); Mean Corpuscular Volume 80 fL (80-100); Mean Platelet Volume 10.6 fL (9.1-12.4); NEUTROPHILS ABSOLUTE AUTO 9.55 K/mm3 (1.96-9.15); NEUTROPHILS PERCENT AUTO 77 % (41-73); Platelet Count 213 K/mm3 (150-400); RDW Standard Deviation 43.3 fL (35.1-46.3); Red Blood Cell Count 3.77 M/mm3 (3.80-5.20); White Blood Cell Count 12.48 K/mm3 (4.00-11.30)
[2017-11-28 05:19] LABS: Albumin, Blood 2.7 g/dL (3.4-5.0); Anion Gap 13 mmol/L (6-16); Blood Urea Nitrogen 76 mg/dL (8-24); Bun/Creatinine Ratio 26.9 (12.0-20.0); CO2, Blood 26 mmol/L (21-32); Calcium, Blood 8.5 mg/dL (8.5-10.1); Chloride, Blood 83 mmol/L (98-108); Creatinine, Blood 2.83 mg/dL (0.40-1.00); Glomerular Filtration Rate 18 (60-); Glucose, Blood 93 mg/dL (70-99); Phosphorus, Blood 3.5 mg/dL (2.5-4.9); Potassium, Blood 4.5 mmol/L (3.5-5.5); Sodium, Blood 122 mmol/L (136-145); Vancomycin, Random 16.6 ug/mL
[2017-11-29 05:17] LABS: BASOPHILS ABSOLUTE AUTO 0.06 K/mm3 (0.00-0.23); BASOPHILS PERCENT AUTO 1 % (0-2); EOSINOPHILS ABSOLUTE AUTO 0.19 K/mm3 (0.00-0.68); EOSINOPHILS PERCENT AUTO 2 % (0-6); Hematocrit 29.6 % (33.0-51.0); Hemoglobin 10.2 g/dL (11.5-16.0); IMMATURE GRAN ABSOLUTE AUTO 0.32 K/mm3 (0.00-0.10); IMMATURE GRAN PERCENT AUTO 3 % (0-1); LYMPHOCYTES ABSOLUTE AUTO 1.02 K/mm3 (0.84-5.20); LYMPHOCYTES PERCENT AUTO 8 % (21-46); MONOCYTES PERCENT AUTO 13 % (4-13); Mean Corpuscular HGB 27.6 pg (26.0-34.0); Mean Corpuscular HGB Conc 34.5 g/dL (31.5-36.5); Mean Corpuscular Volume 80 fL (80-100); Mean Platelet Volume 10.4 fL (9.1-12.4); NEUTROPHILS ABSOLUTE AUTO 9.47 K/mm3 (1.96-9.15); NEUTROPHILS PERCENT AUTO 74 % (41-73); Platelet Count 217 K/mm3 (150-400); RDW Standard Deviation 43.4 fL (35.1-46.3); White Blood Cell Count 12.76 K/mm3 (4.00-11.30)
[2017-11-29 05:37] LABS: Albumin, Blood 2.5 g/dL (3.4-5.0); Anion Gap 13 mmol/L (6-16); Blood Urea Nitrogen 69 mg/dL (8-24); Bun/Creatinine Ratio 32.2 (12.0-20.0); CO2, Blood 27 mmol/L (21-32); Calcium, Blood 8.4 mg/dL (8.5-10.1); Chloride, Blood 82 mmol/L (98-108); Creatinine, Blood 2.14 mg/dL (0.40-1.00); Glomerular Filtration Rate 25 (60-); Glucose, Blood 181 mg/dL (70-99); Phosphorus, Blood 2.7 mg/dL (2.5-4.9); Potassium, Blood 4.1 mmol/L (3.5-5.5); Sodium, Blood 122 mmol/L (136-145); Vancomycin, Random 19.6 ug/mL
[2017-11-30 11:47] LABS: BASOPHILS ABSOLUTE AUTO 0.07 K/mm3 (0.00-0.23); BASOPHILS PERCENT AUTO 1 % (0-2); EOSINOPHILS ABSOLUTE AUTO 0.14 K/mm3 (0.00-0.68); EOSINOPHILS PERCENT AUTO 1 % (0-6); Hematocrit 30.8 % (33.0-51.0); Hemoglobin 10.4 g/dL (11.5-16.0); IMMATURE GRAN ABSOLUTE AUTO 0.22 K/mm3 (0.00-0.10); IMMATURE GRAN PERCENT AUTO 2 % (0-1); LYMPHOCYTES ABSOLUTE AUTO 1.01 K/mm3 (0.84-5.20); LYMPHOCYTES PERCENT AUTO 8 % (21-46); MONOCYTES PERCENT AUTO 16 % (4-13); Mean Corpuscular HGB 27.2 pg (26.0-34.0); Mean Corpuscular HGB Conc 33.8 g/dL (31.5-36.5); Mean Corpuscular Volume 81 fL (80-100); Mean Platelet Volume 10.1 fL (9.1-12.4); NEUTROPHILS PERCENT AUTO 72 % (41-73); Platelet Count 248 K/mm3 (150-400); RDW Coefficient Variation 15.2 % (11.7-14.2); RDW Standard Deviation 43.8 fL (35.1-46.3); Red Blood Cell Count 3.82 M/mm3 (3.80-5.20); White Blood Cell Count 12.04 K/mm3 (4.00-11.30)
[2017-11-30 12:05] LABS: Albumin, Blood 2.7 g/dL (3.4-5.0); Anion Gap 12 mmol/L (6-16); Blood Urea Nitrogen 65 mg/dL (8-24); Bun/Creatinine Ratio 41.7 (12.0-20.0); CO2, Blood 30 mmol/L (21-32); Calcium, Blood 8.6 mg/dL (8.5-10.1); Chloride, Blood 82 mmol/L (98-108); Creatinine, Blood 1.56 mg/dL (0.40-1.00); Glomerular Filtration Rate 35 (60-); Glucose, Blood 156 mg/dL (70-99); Phosphorus, Blood 2.5 mg/dL (2.5-4.9); Sodium, Blood 124 mmol/L (136-145)
[2017-12-01 05:21] LABS: BASOPHILS ABSOLUTE AUTO 0.08 K/mm3 (0.00-0.23); BASOPHILS PERCENT AUTO 1 % (0-2); EOSINOPHILS ABSOLUTE AUTO 0.17 K/mm3 (0.00-0.68); EOSINOPHILS PERCENT AUTO 1 % (0-6); Hematocrit 29.4 % (33.0-51.0); IMMATURE GRAN ABSOLUTE AUTO 0.17 K/mm3 (0.00-0.10); IMMATURE GRAN PERCENT AUTO 1 % (0-1); LYMPHOCYTES ABSOLUTE AUTO 1.16 K/mm3 (0.84-5.20); LYMPHOCYTES PERCENT AUTO 10 % (21-46); MONOCYTES ABSOLUTE AUTO 1.78 K/mm3 (0.16-1.47); MONOCYTES PERCENT AUTO 15 % (4-13); Mean Corpuscular HGB 27.4 pg (26.0-34.0); Mean Corpuscular Volume 81 fL (80-100); Mean Platelet Volume 10.6 fL (9.1-12.4); NEUTROPHILS ABSOLUTE AUTO 8.61 K/mm3 (1.96-9.15); NEUTROPHILS PERCENT AUTO 72 % (41-73); Platelet Count 249 K/mm3 (150-400); RDW Coefficient Variation 15.2 % (11.7-14.2); RDW Standard Deviation 43.9 fL (35.1-46.3); Red Blood Cell Count 3.65 M/mm3 (3.80-5.20); White Blood Cell Count 11.97 K/mm3 (4.00-11.30)
[2017-12-01 05:59] LABS: Albumin, Blood 2.6 g/dL (3.4-5.0); Anion Gap 10 mmol/L (6-16); Blood Urea Nitrogen 63 mg/dL (8-24); Bun/Creatinine Ratio 43.2 (12.0-20.0); CO2, Blood 31 mmol/L (21-32); Calcium, Blood 8.6 mg/dL (8.5-10.1); Chloride, Blood 83 mmol/L (98-108); Creatinine, Blood 1.46 mg/dL (0.40-1.00); Glomerular Filtration Rate 38 (60-); Glucose, Blood 183 mg/dL (70-99); Phosphorus, Blood 2.7 mg/dL (2.5-4.9); Potassium, Blood 3.9 mmol/L (3.5-5.5); Sodium, Blood 124 mmol/L (136-145)
[2017-12-02 04:55] LABS: BASOPHILS ABSOLUTE AUTO 0.08 K/mm3 (0.00-0.23); BASOPHILS PERCENT AUTO 1 % (0-2); EOSINOPHILS ABSOLUTE AUTO 0.16 K/mm3 (0.00-0.68); EOSINOPHILS PERCENT AUTO 1 % (0-6); Hematocrit 30.3 % (33.0-51.0); Hemoglobin 10.2 g/dL (11.5-16.0); IMMATURE GRAN ABSOLUTE AUTO 0.12 K/mm3 (0.00-0.10); IMMATURE GRAN PERCENT AUTO 1 % (0-1); LYMPHOCYTES PERCENT AUTO 9 % (21-46); MONOCYTES PERCENT AUTO 14 % (4-13); Mean Corpuscular HGB Conc 33.7 g/dL (31.5-36.5); Mean Corpuscular Volume 80 fL (80-100); Mean Platelet Volume 10.3 fL (9.1-12.4); NEUTROPHILS ABSOLUTE AUTO 8.76 K/mm3 (1.96-9.15); NEUTROPHILS PERCENT AUTO 74 % (41-73); Platelet Count 289 K/mm3 (150-400); RDW Coefficient Variation 15.6 % (11.7-14.2); Red Blood Cell Count 3.78 M/mm3 (3.80-5.20); White Blood Cell Count 11.92 K/mm3 (4.00-11.30)
[2017-12-02 05:15] LABS: Albumin, Blood 2.6 g/dL (3.4-5.0); Anion Gap 10 mmol/L (6-16); Blood Urea Nitrogen 58 mg/dL (8-24); Bun/Creatinine Ratio 48.7 (12.0-20.0); CO2, Blood 32 mmol/L (21-32); Calcium, Blood 8.6 mg/dL (8.5-10.1); Chloride, Blood 84 mmol/L (98-108); Creatinine, Blood 1.19 mg/dL (0.40-1.00); Glomerular Filtration Rate 48 (60-); Glucose, Blood 177 mg/dL (70-99); Phosphorus, Blood 2.8 mg/dL (2.5-4.9); Potassium, Blood 3.7 mmol/L (3.5-5.5); Sodium, Blood 126 mmol/L (136-145)
[2017-12-03 05:22] LABS: Magnesium, Blood 1.8 mg/dL (1.6-2.4)
[2017-12-03 05:23] LABS: Albumin, Blood 2.7 g/dL (3.4-5.0); Anion Gap 10 mmol/L (6-16); Blood Urea Nitrogen 60 mg/dL (8-24); Bun/Creatinine Ratio 44.8 (12.0-20.0); CO2, Blood 32 mmol/L (21-32); Calcium, Blood 8.5 mg/dL (8.5-10.1); Chloride, Blood 83 mmol/L (98-108); Creatinine, Blood 1.34 mg/dL (0.40-1.00); Glomerular Filtration Rate 42 (60-); Glucose, Blood 181 mg/dL (70-99); Phosphorus, Blood 3.3 mg/dL (2.5-4.9); Potassium, Blood 3.9 mmol/L (3.5-5.5); Sodium, Blood 125 mmol/L (136-145)
[2017-12-04 04:30] LABS: BASOPHILS ABSOLUTE AUTO 0.09 K/mm3 (0.00-0.23); BASOPHILS PERCENT AUTO 1 % (0-2); EOSINOPHILS ABSOLUTE AUTO 0.16 K/mm3 (0.00-0.68); EOSINOPHILS PERCENT AUTO 1 % (0-6); Hematocrit 31.8 % (33.0-51.0); Hemoglobin 10.4 g/dL (11.5-16.0); IMMATURE GRAN ABSOLUTE AUTO 0.06 K/mm3 (0.00-0.10); IMMATURE GRAN PERCENT AUTO 1 % (0-1); LYMPHOCYTES ABSOLUTE AUTO 1.07 K/mm3 (0.84-5.20); LYMPHOCYTES PERCENT AUTO 10 % (21-46); MONOCYTES ABSOLUTE AUTO 1.84 K/mm3 (0.16-1.47); MONOCYTES PERCENT AUTO 16 % (4-13); Mean Corpuscular HGB 26.5 pg (26.0-34.0); Mean Corpuscular HGB Conc 32.7 g/dL (31.5-36.5); Mean Corpuscular Volume 81 fL (80-100); Mean Platelet Volume 10.5 fL (9.1-12.4); NEUTROPHILS ABSOLUTE AUTO 8.07 K/mm3 (1.96-9.15); NEUTROPHILS PERCENT AUTO 72 % (41-73); Platelet Count 337 K/mm3 (150-400); RDW Coefficient Variation 15.8 % (11.7-14.2); RDW Standard Deviation 45.9 fL (35.1-46.3); Red Blood Cell Count 3.92 M/mm3 (3.80-5.20); White Blood Cell Count 11.29 K/mm3 (4.00-11.30)
[2017-12-04 04:49] LABS: Albumin, Blood 2.8 g/dL (3.4-5.0); Anion Gap 10 mmol/L (6-16); Blood Urea Nitrogen 60 mg/dL (8-24); Bun/Creatinine Ratio 45.1 (12.0-20.0); CO2, Blood 31 mmol/L (21-32); Calcium, Blood 8.6 mg/dL (8.5-10.1); Chloride, Blood 83 mmol/L (98-108); Creatinine, Blood 1.33 mg/dL (0.40-1.00); Glomerular Filtration Rate 42 (60-); Glucose, Blood 162 mg/dL (70-99); Phosphorus, Blood 3.3 mg/dL (2.5-4.9); Sodium, Blood 124 mmol/L (136-145)
[2017-12-06 03:38] LABS: BASOPHILS ABSOLUTE AUTO 0.09 K/mm3 (0.00-0.23); BASOPHILS PERCENT AUTO 1 % (0-2); EOSINOPHILS ABSOLUTE AUTO 0.11 K/mm3 (0.00-0.68); EOSINOPHILS PERCENT AUTO 1 % (0-6); Hematocrit 29.6 % (33.0-51.0); Hemoglobin 9.9 g/dL (11.5-16.0); IMMATURE GRAN ABSOLUTE AUTO 0.03 K/mm3 (0.00-0.10); IMMATURE GRAN PERCENT AUTO 0 % (0-1); LYMPHOCYTES ABSOLUTE AUTO 1.08 K/mm3 (0.84-5.20); LYMPHOCYTES PERCENT AUTO 13 % (21-46); MONOCYTES ABSOLUTE AUTO 1.61 K/mm3 (0.16-1.47); MONOCYTES PERCENT AUTO 20 % (4-13); Mean Corpuscular HGB 27.2 pg (26.0-34.0); Mean Corpuscular HGB Conc 33.4 g/dL (31.5-36.5); Mean Corpuscular Volume 81 fL (80-100); Mean Platelet Volume 10.5 fL (9.1-12.4); NEUTROPHILS ABSOLUTE AUTO 5.35 K/mm3 (1.96-9.15); NEUTROPHILS PERCENT AUTO 65 % (41-73); Platelet Count 349 K/mm3 (150-400); RDW Coefficient Variation 15.9 % (11.7-14.2); RDW Standard Deviation 46.3 fL (35.1-46.3); Red Blood Cell Count 3.64 M/mm3 (3.80-5.20); White Blood Cell Count 8.27 K/mm3 (4.00-11.30)
[2017-12-06 03:55] LABS: Albumin, Blood 2.7 g/dL (3.4-5.0); Anion Gap 8 mmol/L (6-16); Blood Urea Nitrogen 55 mg/dL (8-24); Bun/Creatinine Ratio 44.4 (12.0-20.0); CO2, Blood 32 mmol/L (21-32); Calcium, Blood 8.2 mg/dL (8.5-10.1); Chloride, Blood 84 mmol/L (98-108); Creatinine, Blood 1.24 mg/dL (0.40-1.00); Glomerular Filtration Rate 46 (60-); Glucose, Blood 202 mg/dL (70-99); Phosphorus, Blood 3.1 mg/dL (2.5-4.9); Potassium, Blood 3.7 mmol/L (3.5-5.5); Sodium, Blood 124 mmol/L (136-145)
[2017-12-09 05:19] LABS: Albumin, Blood 2.9 g/dL (3.4-5.0); Anion Gap 9 mmol/L (6-16); Blood Urea Nitrogen 44 mg/dL (8-24); Bun/Creatinine Ratio 39.6 (12.0-20.0); CO2, Blood 30 mmol/L (21-32); Calcium, Blood 8.6 mg/dL (8.5-10.1); Chloride, Blood 88 mmol/L (98-108); Creatinine, Blood 1.11 mg/dL (0.40-1.00); Glomerular Filtration Rate 52 (60-); Glucose, Blood 154 mg/dL (70-99); Phosphorus, Blood 3.3 mg/dL (2.5-4.9); Potassium, Blood 3.7 mmol/L (3.5-5.5); Sodium, Blood 127 mmol/L (136-145)
[2017-12-10] MEDS ORDERED: Tylenol325 MG PO (13:30)
[2017-12-10] MEDS ORDERED: ONDA4ODT PO (13:32)
[2017-12-10] MEDS ORDERED: SENN187 PO (13:33)
[2017-12-10] MEDS ORDERED: BUME1 PO (13:37)
[2017-12-10] MEDS ORDERED: CEPH500 PO (13:41)
[2017-12-10] MEDS ORDERED: Milk Of Ma400 MG/5 M PO (13:42)
[2017-12-10] MEDS ORDERED: METO2.5 PO (13:43)
[2017-12-10] MEDS ORDERED: Nystop60 GM TOP (13:47)
== END 2017-12-10 15:13 | disposition home health service (06) | DRG 602 ==
LOC: ER 07:17 → MEDS 10:45 → ENPENDDIS 12-10 10:30 → MEDS 12-10 15:13
PROVIDERS: Emergency Medicine; Family Medicine; Hospitalist; Internal Medicine
DX: L03.116 Cellulitis of left lower limb (principal); G92 Toxic encephalopathy; I50.43 Acute on chronic combined systolic (congestive) and diastolic (congestive) heart failure; J18.9 Pneumonia, unspecified organism; E87.1 Hypo-osmolality and hyponatremia; I13.0 Hypertensive heart and chronic kidney disease with heart failure and stage 1 through stage 4 chronic kidney disease, or unspecified chronic kidney disease; J96.12 Chronic respiratory failure with hypercapnia; E66.2 Morbid (severe) obesity with alveolar hypoventilation; N17.9 Acute kidney failure, unspecified; Z68.42 Body mass index [BMI] 45.0-49.9, adult; E11.9 Type 2 diabetes mellitus without complications; Z89.611 Acquired absence of right leg above knee; I25.10 Atherosclerotic heart disease of native coronary artery without angina pectoris; E11.51 Type 2 diabetes mellitus with diabetic peripheral angiopathy without gangrene; E78.5 Hyperlipidemia, unspecified; E11.40 Type 2 diabetes mellitus with diabetic neuropathy, unspecified; G47.33 Obstructive sleep apnea (adult) (pediatric); K21.9 Gastro-esophageal reflux disease without esophagitis; E11.22 Type 2 diabetes mellitus with diabetic chronic kidney disease; Z99.3 Dependence on wheelchair; E87.5 Hyperkalemia; N18.3 Chronic kidney disease, stage 3 (moderate)
CPT/HCPCS: 36415; 36416; 36600; 71045; 71250; 73700; 76770; 80048; 80053; 80061; 80069; 80202; 81001; 82533; 82550; 82570; 82784; 82803; 82947; 83036; 83615; 83735; 83880; 83935; 84145; 84165; 84300; 84443; 84550; 85025; 85610; 85730; 86334; 87040; 87086; 87205; 93005; 93010; 93926; 93971; 94640; 94760; 97110; 97162; 97530; 99285-25; G8978; G8979; J0690; J0692; J0881; J1650; J1940; J2405; J3010; J3370; J7030; J7050; J7060; J7070

== ENCOUNTER 2017-12-18 12:04 | Emergency (ER) | payer OTHER ==
[~2017-12-18] VITALS: Ht 162.6 cm; Wt 86.2 kg
[~2017-12-18 12:04] MED LIST changes: +BUME1 PO; +Carvedilol12.5 MG PO; +Citalopram HBr40 MG PO; +METO2.5 PO; +Milk Of Ma400 MG/5 M PO; +Novolog100 UNIT/2; +Nystop60 GM TOP; +ONDA4ODT PO; +SENN187 PO; +TORSE20 PO; +Tylenol325 MG PO
[2017-12-18 14:08] LABS: BASOPHILS ABSOLUTE AUTO 0.18 K/mm3 (0.00-0.23); BASOPHILS PERCENT AUTO 2 % (0-2); EOSINOPHILS ABSOLUTE AUTO 0.19 K/mm3 (0.00-0.68); EOSINOPHILS PERCENT AUTO 2 % (0-6); Hematocrit 33.8 % (33.0-51.0); IMMATURE GRAN ABSOLUTE AUTO 0.04 K/mm3 (0.00-0.10); IMMATURE GRAN PERCENT AUTO 1 % (0-1); LYMPHOCYTES ABSOLUTE AUTO 0.92 K/mm3 (0.84-5.20); LYMPHOCYTES PERCENT AUTO 12 % (21-46); MONOCYTES ABSOLUTE AUTO 1.24 K/mm3 (0.16-1.47); MONOCYTES PERCENT AUTO 16 % (4-13); Mean Corpuscular HGB 26.8 pg (26.0-34.0); Mean Corpuscular HGB Conc 32.5 g/dL (31.5-36.5); Mean Corpuscular Volume 82 fL (80-100); Mean Platelet Volume 10.7 fL (9.1-12.4); NEUTROPHILS ABSOLUTE AUTO 5.44 K/mm3 (1.96-9.15); NEUTROPHILS PERCENT AUTO 68 % (41-73); Platelet Count 366 K/mm3 (150-400); RDW Coefficient Variation 15.8 % (11.7-14.2); RDW Standard Deviation 47.6 fL (35.1-46.3); Red Blood Cell Count 4.11 M/mm3 (3.80-5.20); White Blood Cell Count 8.01 K/mm3 (4.00-11.30)
[2017-12-18 14:24] LABS: Albumin, Blood 3.3 g/dL (3.4-5.0); Albumin/Globulin Ratio 0.6 (0.8-1.8); Bilirubin, Total 0.9 mg/dL (0.1-1.0); Bun/Creatinine Ratio 48.5 (12.0-20.0); Calcium, Blood 9.3 mg/dL (8.5-10.1); Creatinine, Blood 1.03 mg/dL (0.40-1.00); Globulin, Blood 5.1 g/dL (2.2-4.0); Potassium, Blood 4.2 mmol/L (3.5-5.5); Total Protein, Blood 8.4 g/dL (6.4-8.2)
== END 2017-12-18 15:30 | disposition home or self-care (01) ==
LOC: ER 12:04
PROVIDERS: Physician Assistant
DX: K56.41 Fecal impaction (principal); E11.9 Type 2 diabetes mellitus without complications; I11.0 Hypertensive heart disease with heart failure; I50.9 Heart failure, unspecified; E78.00 Pure hypercholesterolemia, unspecified; Z88.1 Allergy status to other antibiotic agents; Z88.5 Allergy status to narcotic agent; Z91.09 Other allergy status, other than to drugs and biological substances; Z91.013 Allergy to seafood; Z91.018 Allergy to other foods; Z79.899 Other long term (current) drug therapy; Z79.82 Long term (current) use of aspirin; Z79.4 Long term (current) use of insulin
CPT/HCPCS: 36415; 74018; 80053; 83690; 85025; 96374; 96375; 99284-25; J2405; J3010

== ENCOUNTER → 2018-04-17 | Outpatient (CLI) | payer OTHER ==
[~2018-04-17] MED LIST changes: +CEFP200 PO; +GUAI600T33 PO; +LEVO750 PO; +LOSA25 PO
[2018-04-17 14:09] LABS: Hematocrit 34.9 % (33.0-51.0); Hemoglobin 10.7 g/dL (11.5-16.0)
[2018-04-17 14:10] LABS: Alanine Aminotransfer (ALT/SGP 13 U/L (12-78); Albumin, Blood 3.3 g/dL (3.4-5.0); Albumin/Globulin Ratio 0.7 (0.8-1.8); Alk Phos 194 U/L (50-136); Anion Gap 9 mmol/L (6-16); Aspartate Aminotrans (AST/SGOT 16 U/L (12-37); Bilirubin, Total 0.9 mg/dL (0.1-1.0); Blood Urea Nitrogen 25 mg/dL (8-24); CO2, Blood 26 mmol/L (21-32); Calcium, Blood 8.8 mg/dL (8.5-10.1); Chloride, Blood 100 mmol/L (98-108); Creatinine, Blood 0.78 mg/dL (0.40-1.00); Globulin, Blood 4.8 g/dL (2.2-4.0); Glomerular Filtration Rate >60 (60-); Glucose, Blood 213 mg/dL (70-99); Potassium, Blood 3.9 mmol/L (3.5-5.5); Sodium, Blood 135 mmol/L (136-145); Total Protein, Blood 8.1 g/dL (6.4-8.2)
== END | disposition home or self-care (01) ==
LOC: LAB 13:17 → LAB SHORT 13:17
PROVIDERS: Registered Nurse
DX: E10.9 Type 1 diabetes mellitus without complications (principal); I50.1 Left ventricular failure, unspecified
CPT/HCPCS: 36415; 80053; 83880; 85014; 85018

== ENCOUNTER 2018-08-23 22:48 | Inpatient (IN) | payer OTHER ==
[~2018-08-23] VITALS: Ht 160 cm; Wt 116.2 kg
[~2018-08-23 22:48] MED LIST changes: +ACID REDUCER20 MG PO; +Micro-K10 MEQ PO; +Norco 5-325 Ta1 EACH PO; +Nyamyc15 GM TOP; +PEG3350510 GM PO; +VITAMIN D32000 UNI1 PO; +XARELTO2.5 MG PO
[2018-08-23 23:20] LABS: Base Excess Venous -5.4 mmol/L; Bicarbonate Venous 20.1 mmol/L (24.0-30.0); PCO2 Venous 40.5 mmHg (38-42); PO2 Venous 57.9 mmHg (38-42); pH Blood Venous 7.32 (7.34-7.37)
[2018-08-23 23:23] LABS: BASOPHILS ABSOLUTE AUTO 0.07 K/mm3 (0.00-0.23); BASOPHILS PERCENT AUTO 1 % (0-2); EOSINOPHILS ABSOLUTE AUTO 0.25 K/mm3 (0.00-0.68); EOSINOPHILS PERCENT AUTO 3 % (0-6); Hematocrit 34.8 % (33.0-51.0); Hemoglobin 10.8 g/dL (11.5-16.0); IMMATURE GRAN ABSOLUTE AUTO 0.04 K/mm3 (0.00-0.10); IMMATURE GRAN PERCENT AUTO 1 % (0-1); LYMPHOCYTES ABSOLUTE AUTO 0.76 K/mm3 (0.84-5.20); LYMPHOCYTES PERCENT AUTO 9 % (21-46); MONOCYTES ABSOLUTE AUTO 0.91 K/mm3 (0.16-1.47); MONOCYTES PERCENT AUTO 10 % (4-13); Mean Corpuscular HGB 26.7 pg (26.0-34.0); Mean Corpuscular Volume 86 fL (80-100); Mean Platelet Volume 11.4 fL (9.1-12.4); NEUTROPHILS ABSOLUTE AUTO 6.74 K/mm3 (1.96-9.15); NEUTROPHILS PERCENT AUTO 77 % (41-73); Platelet Count 230 K/mm3 (150-400); RDW Coefficient Variation 15.9 % (11.7-14.2); RDW Standard Deviation 50.6 fL (35.1-46.3); Red Blood Cell Count 4.04 M/mm3 (3.80-5.20); White Blood Cell Count 8.77 K/mm3 (4.00-11.30)
[2018-08-23 23:44] LABS: Alanine Aminotransfer (ALT/SGP 12 U/L (12-78); Albumin, Blood 3.4 g/dL (3.4-5.0); Albumin/Globulin Ratio 0.7 (0.8-1.8); Alk Phos 222 U/L (50-136); Anion Gap 8 mmol/L (6-16); Aspartate Aminotrans (AST/SGOT 10 U/L (12-37); Bilirubin, Total 0.6 mg/dL (0.1-1.0); Blood Urea Nitrogen 33 mg/dL (8-24); Bun/Creatinine Ratio 30.8 (12.0-20.0); CO2, Blood 22 mmol/L (21-32); Calcium, Blood 8.8 mg/dL (8.5-10.1); Chloride, Blood 103 mmol/L (98-108); Creatinine, Blood 1.07 mg/dL (0.40-1.00); Globulin, Blood 4.7 g/dL (2.2-4.0); Glomerular Filtration Rate 54 (60-); Glucose, Blood 294 mg/dL (70-99); Potassium, Blood 5.2 mmol/L (3.5-5.5); Sodium, Blood 133 mmol/L (136-145); Total Protein, Blood 8.1 g/dL (6.4-8.2); Troponin I <0.015 ng/mL (0.000-0.040)
[2018-08-24 02:09] LABS: Source, Urine Catheter
[2018-08-24 02:14] LABS: Blood, Urine Neg (Neg); Glucose Qualitative, Urine 2+ (Neg); Ketones, Urine Neg (Neg); Leukocyte Esterase, Urine Neg (Neg); Nitrite, Urine Neg (Neg); Protein, Urine 3+ (Neg); Specific Gravity, Urine 1.025 (1.003-1.022); Urobilinogen, Urine 1+ (Normal)
[2018-08-24 02:18] LABS: Bilirubin, Urine 1+ (Neg)
[2018-08-24 02:29] LABS: Appearance, Urine Hazy (Clear); Color, Urine Amber (P-Yellow)
[2018-08-24 02:44] LABS: Red Blood Cells, Urine Not Seen /hpf (0-2)
[2018-08-24 02:45] LABS: Amorphous Mod (0-Heavy); Bacteria Mod /hpf; Squamous Epithelial Cells Few /hpf (Few); White Blood Cells, Urine 0-2 /hpf (0-5)
--- NOTE | 2018-08-24 02:52 | NUR ---
PT ARRIVAL. PT ARRIVED ON UNIT VIA GURNEY APROX 0120. PT IS BEING ADMITTED DUE TO RESP FAILRUE/CHF EXAC. PT ARRIVED ON 4 L NC, PT RR WAS IN THE 30'S, PT WAS GRUNTING W/EACH RESPIRATION. PT WAS TRANSFERED TO THE BED AND BIPAP WAS PLACED. ORDER FOR BOWENS WAS OBTAINED DUE TO ORDERS FOR STRICT I&O AND DIURESING. BOWENS WAS PLACED. PT'S URINE WAS PANKAJ IN COLOR, UA AND C&S WERE SENT. DURING ASSESSMENT IT WAS NOTED THAT PT HAS YEASTY RASH IN TARAN AREA FOLDS WELL OTHER FOLDS, OPEN AREA IS NOTED TO HER RIGHT INNER THIGH/TARAN AREA ALONG WITH YEASTY RASH. PT'S COCCYX/BUTTOCKS IS DARK RED, NON-BLANCHABLE W/OPEN AREA, PICTURES TAKEN. PT HAS EDEMA FROM HER CHEST DOWN TO HER LLE. PT'S LEFT LEG IS HARD, WARM AND BRIGHT PINK/RED. PT'S ABD IS DISTENDED AND FIRM, BUT NON TENDER TO PALP. TELE WAS PLACED, NSR IN THE 70'S PER LEAKAGE TESTER. PT HAS BEEN HYPERTENSIVE IN THE ER, PT'S BP ON ADMIT WAS 178/64. L/S CLEAR BUT DIM T/O. BIPAP SETTINGS 14/6 &25% FIO2, RR 33. PT IS UNABLE TO ANSWER QUESTIONS FOR ADMIT AT THIS TIME DUE TO DYSPNEA AND LETHARGY. CALL LIGHT IN REACH, BED IS LOCKED AND LOW WILL CONTINUE TO MONITOR.
--- NOTE | 2018-08-24 06:15 | NUR ---
SHIFT SUMMARY. PT'S WORK OF BREATHING HAS IMPROVED SINCE ADMIT, PT'S RR HAS DECREASED. PT HAS WORN THE BIPAP ALL NIGHT WITH NO ISSUES. PT WAS GIVEN LASIX UPON ADMIT, PT'S OUTPUT FROM THE BOWENS WAS 400MLS. PT'S L/S CLEAR BUT DIM T/O. PT STILL HAS SEVERE GENERALIZED EDEMA. PT IS MORE ALERT THIS AM WAS WAS ABLE TO REQUEST THE BED DOWNING, PT DID NOT HAVE A BM BUT SHE WAS ABLE TO MAKE HER NEEDS KNOWN. PT'S BP HAS IMPROVED SINCE SHE WAS TREATED PER EMAR FOR SBP >150. NO CARDIAC EVENTS ON TELE. CALL LIGHT IN REACH, BED IS LOCKED AND LOW WILL CONTINUE TO MONITOR UNTIL REPORT IS GIVEN TO ONCOMING RN.
[2018-08-24 08:34] LABS: Bun/Creatinine Ratio 31.8 (12.0-20.0); Calcium, Blood 8.5 mg/dL (8.5-10.1); Creatinine, Blood 1.1 mg/dL (0.40-1.00); Potassium, Blood 5.3 mmol/L (3.5-5.5)
--- NOTE | 2018-08-24 11:03 | NUR ---
ASSUMED CARE OF PT @ 0700. PT WAS SLEEPING IN BED. PT LESS LETHARGIC AND CAN ASWER QUESTIONS APPROPIATLEY. CPAP ON 03/10 AT 25%, O2 HIGH 90'S. PT STATES SHE IS ON ROOM AIR AND DOESNT USUALLY WEAR HER CPAP AT HOME. RT STATED NEED FOR O2 DURING THE NIGHT IF SHE DOESNT WEAR HER O2. WILL CONTACT PMD. HEART SOUNDS REGULAR, NRS HR 60'S PER MANAGER OF LOSS PREVENTION OPERATIONS. LUNG SOUNDS CLEAR AT APEX, INS WHEEZES IN THE BASES. ABDOMEN FIRM AND EDEMIDOUS. R AKA. L LEG WITH +2 PITTING EDEMA. WARM AND DRY TO TOUCH. PERIPHERAL PULSES WEAK AND THREADY. TARAN AREA AND UNDER FOLDS ARE RED AND YEASTY. PRESSURE ULCER ON COCCYX WITH DRESSING. PT SITTING UP IN BED WATCHING TV ON RA. WILL CONTINUE TO MONITOR. CALL LIGHT IN REACH. BED IN LOWEST POSTION.
[2018-08-24] MEDS ORDERED: Pedi-Dri 100,0060 GM TOP (12:44)
[2018-08-24] MEDS ORDERED: OMEPRAZOLE MAGN20 MG PO (12:48)
[2018-08-24] MEDS ORDERED: LISI20 PO (12:48)
[2018-08-24] MEDS ORDERED: Micro-K10 MEQ PO (12:49)
[2018-08-24] MEDS ORDERED: Colace100 MG PO (12:50)
[2018-08-24] MEDS ORDERED: Norco 5-325 Ta1 EACH PO (12:51)
[2018-08-24] MEDS ORDERED: XARELTO2.5 MG PO (12:52)
[2018-08-24] MEDS ORDERED: GAVILAX17 GM PO (12:54)
[2018-08-24] MEDS ORDERED: Citalopram HBr40 MG PO (12:55)
[2018-08-24] MEDS ORDERED: Vitamin D2000 UNIT PO (12:57)
[2018-08-24] MEDS ORDERED: BUME1 PO (12:57)
[2018-08-24] MEDS ORDERED: Coreg12.5 MG PO (13:00)
[2018-08-24] MEDS ORDERED: INSULANPEN SC (13:01)
[2018-08-24] MEDS ORDERED: ALBU90OI6 INH (13:03)
[2018-08-24] MEDS ORDERED: Isosorbide Mono30 MG PO (13:04)
--- NOTE | 2018-08-24 13:05 | NUR ---
ECHOCARDIOGRAM COMPLETE
[2018-08-24] MEDS ORDERED: NITR.4SL SL (13:06)
--- NOTE | 2018-08-24 20:42 | NUR ---
PM NOTE. ASSUMED CARE OF PT APROX 1900, PT IS A&Ox4. PT WAS ADMITTED DUE TO RESP FAILURE, PT IS MUCH IMPROVED SINCE ADMIT, PT IS ON RA WITH O2 SATS >92%. PT STATES SHE FEELS SHE IS BACK TO HER BASELINE. PT IS TO HAVE A SLEEP STUDY TONIGHT, RT AWARE. TELE INTACT, NSR IN THE 60'S-70'S PER FLIGHT DATA TECHNICIAN. PT'S BP 166/73. PT HAS 2+ EDEMA TO HER LLE, AND NONPITTING GENERALIZED EDEMA FROM HER CHEST DOWN. PT'S L/S FINE CRACKLES TO THE RIGHT MID AND LOWER LOBES AND CLEAR/DIM ON THE LEFT. BT PRESENT AND HYPOACTIVE, ABD IS FIRM BUT NONTENDER TO PALP. PT STATES SHE FEELS "GASY" AND "CONSTIPATED." BOWEL CARE WAS STARTED PER EMAR. PT'S BOWENS IS PATENT AND DRAINING CLEAR PANKAJ URINE TO GRAVITY. PT C/O OF GENERALIZED PAIN AND PHANTOM PAIN FROM HER RIGHT AKA, PT WAS MEDICATED PER EMAR W/GOOD RESULTS. CALL LIGHT IN REACH, BED IS LOCKED AND LOW WILL CONTINUE TO MONITOR.
[2018-08-25 06:25] LABS: BASOPHILS ABSOLUTE AUTO 0.02 K/mm3 (0.00-0.23); BASOPHILS PERCENT AUTO 0 % (0-2); EOSINOPHILS PERCENT AUTO 0 % (0-6); Hematocrit 31.5 % (33.0-51.0); IMMATURE GRAN ABSOLUTE AUTO 0.05 K/mm3 (0.00-0.10); IMMATURE GRAN PERCENT AUTO 1 % (0-1); LYMPHOCYTES ABSOLUTE AUTO 0.61 K/mm3 (0.84-5.20); LYMPHOCYTES PERCENT AUTO 6 % (21-46); MONOCYTES ABSOLUTE AUTO 0.97 K/mm3 (0.16-1.47); MONOCYTES PERCENT AUTO 9 % (4-13); Mean Corpuscular HGB 26.7 pg (26.0-34.0); Mean Corpuscular HGB Conc 31.7 g/dL (31.5-36.5); Mean Corpuscular Volume 84 fL (80-100); Mean Platelet Volume 10.9 fL (9.1-12.4); NEUTROPHILS ABSOLUTE AUTO 9.38 K/mm3 (1.96-9.15); NEUTROPHILS PERCENT AUTO 85 % (41-73); Platelet Count 198 K/mm3 (150-400); RDW Coefficient Variation 15.9 % (11.7-14.2); RDW Standard Deviation 49.1 fL (35.1-46.3); Red Blood Cell Count 3.74 M/mm3 (3.80-5.20); White Blood Cell Count 11.03 K/mm3 (4.00-11.30)
--- NOTE | 2018-08-25 06:36 | NUR ---
SHIFT SUMMARY. NO ACUTE CHANGES NOTED THIS SHIFT. PT HAD SLEEP STUDY BY RT, RESULTS PENDING. PT WAS NO ON THE BIPAP AT ALL THIS SHIFT. PT STATED THAT SHE FELT LIKE SHE WAS "BACK TO BASELINE" IN REGARDS TO HER BREATHING. PT'S BOWENS IS PATENT AND DRAINING PANKAJ URINE W/SEDIMENT TO GRAVITY. PT WAS GIVEN BOWEL CARE LAST NIGHT WITH NO RESULTS. PT'S VS HAVE BEEN STABLE T/O SHIFT. PT DENIES ANY SOB, N/V OR CHEST PAIN AT THIS TIME. CALL LIGHT IN REACH, BED IS LOCKED AND LOW WILL CONTINUE TO MONITOR UNTIL REPORT IS GIVEN TO ONCOMING RN.
[2018-08-25 06:47] LABS: Albumin, Blood 3.1 g/dL (3.4-5.0); Albumin/Globulin Ratio 0.7 (0.8-1.8); Bilirubin, Total 0.7 mg/dL (0.1-1.0); Bun/Creatinine Ratio 33.3 (12.0-20.0); Calcium, Blood 8.8 mg/dL (8.5-10.1); Creatinine, Blood 1.17 mg/dL (0.40-1.00); Globulin, Blood 4.3 g/dL (2.2-4.0); Potassium, Blood 4.7 mmol/L (3.5-5.5); Total Protein, Blood 7.4 g/dL (6.4-8.2)
--- NOTE | 2018-08-25 17:57 | NUR ---
No acute changes noted. No shortness of breath noted. No current complaints of pain or discomfort noted. Will continue to monitor for changes.
[2018-08-26 04:18] LABS: BASOPHILS ABSOLUTE AUTO 0.03 K/mm3 (0.00-0.23); BASOPHILS PERCENT AUTO 0 % (0-2); EOSINOPHILS PERCENT AUTO 1 % (0-6); Hematocrit 32.5 % (33.0-51.0); Hemoglobin 10.2 g/dL (11.5-16.0); IMMATURE GRAN ABSOLUTE AUTO 0.03 K/mm3 (0.00-0.10); IMMATURE GRAN PERCENT AUTO 0 % (0-1); LYMPHOCYTES ABSOLUTE AUTO 0.93 K/mm3 (0.84-5.20); LYMPHOCYTES PERCENT AUTO 12 % (21-46); MONOCYTES ABSOLUTE AUTO 0.91 K/mm3 (0.16-1.47); MONOCYTES PERCENT AUTO 12 % (4-13); Mean Corpuscular HGB 26.8 pg (26.0-34.0); Mean Corpuscular HGB Conc 31.4 g/dL (31.5-36.5); Mean Corpuscular Volume 86 fL (80-100); NEUTROPHILS ABSOLUTE AUTO 5.77 K/mm3 (1.96-9.15); NEUTROPHILS PERCENT AUTO 74 % (41-73); Platelet Count 207 K/mm3 (150-400); RDW Coefficient Variation 15.9 % (11.7-14.2); RDW Standard Deviation 49.5 fL (35.1-46.3); White Blood Cell Count 7.77 K/mm3 (4.00-11.30)
[2018-08-26 04:41] LABS: Albumin, Blood 3.1 g/dL (3.4-5.0); Albumin/Globulin Ratio 0.7 (0.8-1.8); Bilirubin, Total 0.5 mg/dL (0.1-1.0); Bun/Creatinine Ratio 34.3 (12.0-20.0); Calcium, Blood 8.6 mg/dL (8.5-10.1); Creatinine, Blood 1.37 mg/dL (0.40-1.00); Globulin, Blood 4.3 g/dL (2.2-4.0); Potassium, Blood 4.3 mmol/L (3.5-5.5); Total Protein, Blood 7.4 g/dL (6.4-8.2)
--- NOTE | 2018-08-26 06:01 | NUR ---
PCU NIGHTSHIFT ASSUMED CARE OF PT APPROX. 1900. PT A&O X4. ASSESSMENT COMPLETED. VITAL SIGNS STABLE. PT ON RA WITH SATS IN 90'S. BOWENS PATENT, INTACT AND DRAINING. LEFT LEG +2 EDEMA. PT REPORTS SOME NUMBNESS AND TINGLING IN LEFT FOOT. BED IN LOW POSTION, CALL LIGHT IN REACH AND PT DENIES ANY NEEDS.
--- NOTE | 2018-08-26 06:04 | NUR ---
SHIFT SUMMARY PT PLEASANT, COOPERATIVE AND USES CALL LIGHT APPROPRIATELY. ASSESSMENT FINDINGS REMAIN UNCAHNGED. VITAL SIGNS STABLE. PT REFUSED REPOSITIONING MOST OF THE NIGHT. PT HEART RHYTHM REMAINS NSR. PT REMAINS ON RA WITH SATS IN 90'S. PT COMPLETED XRAY THIS MORNING. BED IN LOW POSITION, CALL LIGHT IN REACH AND PT DENIES ANY NEEDS AT THIS TIME. WILL CONTINUE TO MONITOR UNTIL HANDOFF TO DAYSHIFT RN.
--- NOTE | 2018-08-26 14:15 | NUR ---
Spiritual care visit conducted. Patient is lying in bed and alert. Patient openly shares about her emotional pain, medical issues and struggle to find purpose. I facilitated a life review highlighting the obstacles patienthas overcome, I explored sources of meaning, I provided pastoral addictions counselor assistant and provided prayer. Patient responded well and showed signs of restored yamileth.
[2018-08-26] MEDS ORDERED: BISA10S PR (16:12)
[2018-08-26] MEDS ORDERED: LO-DOSE ASPIRIN81 MG PO (16:12)
[2018-08-26] MEDS ORDERED: ONDA4ODT SL (16:14)
[2018-08-26] MEDS ORDERED: LEVO750 PO (16:16)
[2018-08-26] MEDS ORDERED: Florastor250 MG PO (16:17)
[2018-08-26] MEDS ORDERED: SPIR25 PO (16:21)
--- NOTE | 2018-08-26 16:52 | NUR ---
PT STABLE FOR DISCHARGE WITH HOME HEALTH. IV X2 REMOVED. DISCHARGE INSTRUCTIONS AND DISCHARGE MEDICATIONS REVIEWED WITH PT. PT VERBALIZES UNDERSTANDING AND DENIES QUESTIONS. PT LIFTED INTO WHEELCHAIR FOR TRANSFER HOME VIA WHEELCHAIR VAN. PT SENT WITH MESH SLING FROM [facility], CAREGIVER FROM [facility] TO RETURN SLING TO [facility]. PT DISCHARGED WITH BELONGINGS.
== END 2018-08-26 16:48 | disposition home health service (06) | DRG 291 ==
LOC: ER 22:48 → PCU 08-24 00:48
PROVIDERS: Emergency Medicine; Family Medicine; ADMIT Internal Medicine
PROC: 5A09357 Assistance with Respiratory Ventilation, Less than 24 Consecutive Hours, Continuous Positive Airway Pressure (ICD-10-PCS; principal; 2018-08-23)
DX: I11.0 Hypertensive heart disease with heart failure (principal); J96.01 Acute respiratory failure with hypoxia; J18.9 Pneumonia, unspecified organism; J18.1 Lobar pneumonia, unspecified organism; I69.351 Hemiplegia and hemiparesis following cerebral infarction affecting right dominant side; Z68.41 Body mass index [BMI] 40.0-44.9, adult; I50.23 Acute on chronic systolic (congestive) heart failure; E78.00 Pure hypercholesterolemia, unspecified; Z89.611 Acquired absence of right leg above knee; Z87.891 Personal history of nicotine dependence; E78.5 Hyperlipidemia, unspecified; Z95.1 Presence of aortocoronary bypass graft; J44.9 Chronic obstructive pulmonary disease, unspecified; Z66 Do not resuscitate; I16.0 Hypertensive urgency; I25.10 Atherosclerotic heart disease of native coronary artery without angina pectoris; E66.01 Morbid (severe) obesity due to excess calories; R26.89 Other abnormalities of gait and mobility; Z79.4 Long term (current) use of insulin; E11.9 Type 2 diabetes mellitus without complications
CPT/HCPCS: 36415; 51703; 71045; 71046; 80048; 80053; 81001; 82803; 82947; 83605; 83690; 83880; 84145; 84484; 85025; 87086; 93005; 93010; 94640; 94660; 94762; 96365; 96375; 96376; 99285-25; A9270-GY; C8923; J0360; J1650; J1815; J1940; J1956; J2060; J2405; J2543; J2930; J3370; J7120; Q9957

== ENCOUNTER 2018-11-14 13:01 | Emergency (ER) | payer OTHER ==
[~2018-11-14] VITALS: Ht 157.5 cm; Wt 117.9 kg
[~2018-11-14 13:01] MED LIST changes: +BISA10S PR; +Colace100 MG PO; +Coreg12.5 MG PO; +Florastor250 MG PO; +LO-DOSE ASPIRIN81 MG PO; +ONDA4ODT SL; +Pedi-Dri 100,0060 GM TOP; +Vitamin D2000 UNIT PO
[2018-11-14 15:17] LABS: BASOPHILS ABSOLUTE AUTO 0.09 K/mm3 (0.00-0.23); BASOPHILS PERCENT AUTO 1 % (0-2); EOSINOPHILS ABSOLUTE AUTO 0.24 K/mm3 (0.00-0.68); EOSINOPHILS PERCENT AUTO 4 % (0-6); Hematocrit 28.8 % (33.0-51.0); Hemoglobin 9.2 g/dL (11.5-16.0); IMMATURE GRAN ABSOLUTE AUTO 0.03 K/mm3 (0.00-0.10); IMMATURE GRAN PERCENT AUTO 0 % (0-1); LYMPHOCYTES ABSOLUTE AUTO 0.69 K/mm3 (0.84-5.20); LYMPHOCYTES PERCENT AUTO 10 % (21-46); MONOCYTES PERCENT AUTO 15 % (4-13); Mean Corpuscular HGB Conc 31.9 g/dL (31.5-36.5); Mean Corpuscular Volume 85 fL (80-100); Mean Platelet Volume 10.4 fL (9.1-12.4); NEUTROPHILS PERCENT AUTO 70 % (41-73); Platelet Count 242 K/mm3 (150-400); RDW Coefficient Variation 15.9 % (11.7-14.2); RDW Standard Deviation 49.7 fL (35.1-46.3); Red Blood Cell Count 3.41 M/mm3 (3.80-5.20); White Blood Cell Count 6.75 K/mm3 (4.00-11.30)
[2018-11-14 15:47] LABS: Albumin, Blood 3.1 g/dL (3.4-5.0); Albumin/Globulin Ratio 0.8 (0.8-1.8); Bilirubin, Total 0.6 mg/dL (0.1-1.0); Bun/Creatinine Ratio 28.9 (12.0-20.0); Calcium, Blood 8.2 mg/dL (8.5-10.1); Creatinine, Blood 1.28 mg/dL (0.40-1.00); Potassium, Blood 5.2 mmol/L (3.5-5.5); Total Protein, Blood 7.1 g/dL (6.4-8.2)
[2018-11-14] MEDS ORDERED: CEPH500 PO (18:12)
== END 2018-11-14 18:25 | disposition home or self-care (01) ==
LOC: ER 13:01
PROVIDERS: Emergency Medicine
DX: L03.116 Cellulitis of left lower limb (principal); I11.0 Hypertensive heart disease with heart failure; I50.9 Heart failure, unspecified; E11.9 Type 2 diabetes mellitus without complications; D64.9 Anemia, unspecified; R29.898 Other symptoms and signs involving the musculoskeletal system; E78.00 Pure hypercholesterolemia, unspecified; Z88.1 Allergy status to other antibiotic agents; Z88.5 Allergy status to narcotic agent; Z91.040 Latex allergy status; Z91.013 Allergy to seafood; Z91.018 Allergy to other foods; Z79.899 Other long term (current) drug therapy; Z79.4 Long term (current) use of insulin; Z79.82 Long term (current) use of aspirin; Z87.891 Personal history of nicotine dependence; Z89.511 Acquired absence of right leg below knee
CPT/HCPCS: 71046; 76882; 80053; 83880; 85025; 93971; 96365; 96375; 99284-25; J0696

== ENCOUNTER → 2018-12-31 | Outpatient (CLI) | payer OTHER ==
[2018-12-31 15:21] LABS: Source, Urine Clean Catch
[2018-12-31 16:00] LABS: Appearance, Urine Hazy (Clear); Bilirubin, Urine Neg (Neg); Blood, Urine 5+ (Neg); Color, Urine Yellow (P-Yellow); Glucose Qualitative, Urine 3+ (Neg); Ketones, Urine Neg (Neg); Leukocyte Esterase, Urine Neg (Neg); Nitrite, Urine Neg (Neg); Protein, Urine 3+ (Neg); Specific Gravity, Urine 1.015 (1.003-1.022); Urobilinogen, Urine NORM (Normal)
[2018-12-31 16:11] LABS: Amorphous Mod (0-Heavy); Bacteria Mod /hpf; Mucus Light (0-Heavy); Squamous Epithelial Cells Few /hpf (Few)
== END | disposition home or self-care (01) ==
LOC: LAB 11:45 → LAB SHORT 11:45
PROVIDERS: Family Medicine
DX: N39.0 Urinary tract infection, site not specified (principal)
CPT/HCPCS: 81001; 87086

== ENCOUNTER → 2019-01-26 | Outpatient (CLI) | payer OTHER ==
[2019-01-26 19:06] LABS: Bun/Creatinine Ratio 49.3 (12.0-20.0); Calcium, Blood 9.1 mg/dL (8.5-10.1); Creatinine, Blood 1.42 mg/dL (0.40-1.00); Potassium, Blood 5.2 mmol/L (3.5-5.5)
== END ==
LOC: LAB SRC 14:50 → LAB SHORT 14:50
PROVIDERS: Family Medicine
DX: I13.0 Hypertensive heart and chronic kidney disease with heart failure and stage 1 through stage 4 chronic kidney disease, or unspecified chronic kidney disease (principal); N18.9 Chronic kidney disease, unspecified; I50.9 Heart failure, unspecified
CPT/HCPCS: 36415; 80048

== ENCOUNTER 2019-03-06 17:44 | Emergency (ER) | payer OTHER ==
[~2019-03-06] VITALS: Ht 157.5 cm; Wt 108.9 kg
[~2019-03-06 17:44] MED LIST changes: +Bumetanide1 MG PO; -LO-DOSE ASPIRIN81 MG PO; +LOW DOSE ASPIRI81 M1 PO; +NYSTRITC TOP; -Pedi-Dri 100,0060 GM TOP
[2019-03-06 18:29] LABS: BASOPHILS ABSOLUTE AUTO 0.08 K/mm3 (0.00-0.23); BASOPHILS PERCENT AUTO 1 % (0-2); EOSINOPHILS ABSOLUTE AUTO 0.41 K/mm3 (0.00-0.68); EOSINOPHILS PERCENT AUTO 5 % (0-6); Hematocrit 26.5 % (33.0-51.0); Hemoglobin 8.2 g/dL (11.5-16.0); IMMATURE GRAN ABSOLUTE AUTO 0.04 K/mm3 (0.00-0.10); IMMATURE GRAN PERCENT AUTO 1 % (0-1); LYMPHOCYTES ABSOLUTE AUTO 1.18 K/mm3 (0.84-5.20); LYMPHOCYTES PERCENT AUTO 15 % (21-46); MONOCYTES ABSOLUTE AUTO 1.15 K/mm3 (0.16-1.47); MONOCYTES PERCENT AUTO 14 % (4-13); Mean Corpuscular HGB Conc 30.9 g/dL (31.5-36.5); Mean Corpuscular Volume 74 fL (80-100); Mean Platelet Volume 10.3 fL (9.1-12.4); NEUTROPHILS ABSOLUTE AUTO 5.11 K/mm3 (1.96-9.15); NEUTROPHILS PERCENT AUTO 64 % (41-73); Platelet Count 333 K/mm3 (150-400); RDW Coefficient Variation 16.9 % (11.7-14.2); RDW Standard Deviation 45.4 fL (35.1-46.3); Red Blood Cell Count 3.56 M/mm3 (3.80-5.20); White Blood Cell Count 7.97 K/mm3 (4.00-11.30)
[2019-03-06 18:58] LABS: Albumin, Blood 3.4 g/dL (3.4-5.0); Albumin/Globulin Ratio 0.9 (0.8-1.8); Bilirubin, Total 0.4 mg/dL (0.1-1.0); Bun/Creatinine Ratio 50.3 (12.0-20.0); Calcium, Blood 8.8 mg/dL (8.5-10.1); Creatinine, Blood 1.79 mg/dL (0.40-1.00); Globulin, Blood 3.9 g/dL (2.2-4.0); Potassium, Blood 5.5 mmol/L (3.5-5.5); Total Protein, Blood 7.3 g/dL (6.4-8.2)
[2019-03-06 19:14] LABS: Source, Urine Catheter
[2019-03-06 19:16] LABS: Bilirubin, Urine Neg (Neg); Blood, Urine 3+ (Neg); Glucose Qualitative, Urine 3+ (Neg); Ketones, Urine Neg (Neg); Leukocyte Esterase, Urine 2+ (Neg); Nitrite, Urine Pos (Neg); Protein, Urine 1+ (Neg); Specific Gravity, Urine 1.015 (1.003-1.022); Urobilinogen, Urine NORM (Normal)
[2019-03-06 19:21] LABS: Appearance, Urine Clear (Clear); Color, Urine Yellow (P-Yellow)
[2019-03-06 19:22] LABS: Yeast/Fungi Urine Mod /hpf
[2019-03-06 19:23] LABS: Bacteria Few /hpf; Squamous Epithelial Cells Few /hpf (Few)
[2019-03-06] MEDS ORDERED: Diflucan100 MG PO (22:05)
[2019-03-06] MEDS ORDERED: CEFP200 PO (22:05)
== END 2019-03-07 00:19 | disposition home or self-care (01) ==
LOC: ER 17:44
PROVIDERS: Physician Assistant
DX: K59.00 Constipation, unspecified (principal); R18.8 Other ascites; N39.0 Urinary tract infection, site not specified; I13.0 Hypertensive heart and chronic kidney disease with heart failure and stage 1 through stage 4 chronic kidney disease, or unspecified chronic kidney disease; E11.22 Type 2 diabetes mellitus with diabetic chronic kidney disease; I50.9 Heart failure, unspecified; N18.9 Chronic kidney disease, unspecified; D63.1 Anemia in chronic kidney disease; L89.321 Pressure ulcer of left buttock, stage 1; L89.311 Pressure ulcer of right buttock, stage 1; B37.9 Candidiasis, unspecified; Z86.73 Personal history of transient ischemic attack (TIA), and cerebral infarction without residual deficits; Z89.611 Acquired absence of right leg above knee; Z88.1 Allergy status to other antibiotic agents; Z88.5 Allergy status to narcotic agent; Z91.013 Allergy to seafood; Z91.018 Allergy to other foods; Z79.899 Other long term (current) drug therapy; Z79.01 Long term (current) use of anticoagulants; Z79.4 Long term (current) use of insulin; Z79.82 Long term (current) use of aspirin
CPT/HCPCS: 36415; 74019; 74176; 80053; 81001; 83690; 85025; 87077; 87086; 87106; 87186; 99284-25; A9270-GY

== ENCOUNTER 2019-04-02 18:23 | Emergency (ER) | payer OTHER ==
[~2019-04-02] VITALS: Ht 157.5 cm; Wt 108.9 kg
[~2019-04-02 18:23] MED LIST changes: +Diflucan100 MG PO
[2019-04-02 19:09] LABS: BASOPHILS ABSOLUTE AUTO 0.09 K/mm3 (0.00-0.23); BASOPHILS PERCENT AUTO 1 % (0-2); EOSINOPHILS ABSOLUTE AUTO 0.35 K/mm3 (0.00-0.68); EOSINOPHILS PERCENT AUTO 5 % (0-6); Hematocrit 31.6 % (33.0-51.0); Hemoglobin 9.5 g/dL (11.5-16.0); IMMATURE GRAN ABSOLUTE AUTO 0.03 K/mm3 (0.00-0.10); IMMATURE GRAN PERCENT AUTO 0 % (0-1); LYMPHOCYTES ABSOLUTE AUTO 1.08 K/mm3 (0.84-5.20); LYMPHOCYTES PERCENT AUTO 16 % (21-46); MONOCYTES ABSOLUTE AUTO 0.83 K/mm3 (0.16-1.47); MONOCYTES PERCENT AUTO 12 % (4-13); Mean Corpuscular HGB 23.7 pg (26.0-34.0); Mean Corpuscular HGB Conc 30.1 g/dL (31.5-36.5); Mean Corpuscular Volume 79 fL (80-100); Mean Platelet Volume 10.1 fL (9.1-12.4); NEUTROPHILS ABSOLUTE AUTO 4.45 K/mm3 (1.96-9.15); NEUTROPHILS PERCENT AUTO 65 % (41-73); Platelet Count 297 K/mm3 (150-400); RDW Coefficient Variation 19.5 % (11.7-14.2); RDW Standard Deviation 55.3 fL (35.1-46.3); Red Blood Cell Count 4.01 M/mm3 (3.80-5.20); White Blood Cell Count 6.83 K/mm3 (4.00-11.30)
[2019-04-02 19:31] LABS: Albumin, Blood 3.5 g/dL (3.4-5.0); Albumin/Globulin Ratio 0.9 (0.8-1.8); Bilirubin, Total 0.5 mg/dL (0.1-1.0); Bun/Creatinine Ratio 30.9 (12.0-20.0); Creatinine, Blood 2.23 mg/dL (0.40-1.00); Total Protein, Blood 7.5 g/dL (6.4-8.2)
[2019-04-02] MEDS ORDERED: Roxicodone5 MG PO (20:49)
== END 2019-04-02 21:40 | disposition home or self-care (01) ==
LOC: ER 18:23
PROVIDERS: Emergency Medicine
DX: E11.51 Type 2 diabetes mellitus with diabetic peripheral angiopathy without gangrene (principal); I11.0 Hypertensive heart disease with heart failure; I50.9 Heart failure, unspecified; J44.9 Chronic obstructive pulmonary disease, unspecified; Z87.891 Personal history of nicotine dependence
CPT/HCPCS: 36415; 71045; 80053; 83880; 85025; 93926; 96374; 96376; 99284-25; A9270; J1170

== ENCOUNTER 2019-04-08 12:13 | Day surgery (SDC) | payer OTHER ==
[~2019-04-08 12:13] MED LIST changes: +Roxicodone5 MG PO
== END 2019-04-08 22:50 | disposition home or self-care (01) ==
LOC: WOUND 12:13
DX: E11.621 Type 2 diabetes mellitus with foot ulcer (principal); E11.51 Type 2 diabetes mellitus with diabetic peripheral angiopathy without gangrene; L97.522 Non-pressure chronic ulcer of other part of left foot with fat layer exposed; I10 Essential (primary) hypertension; E78.5 Hyperlipidemia, unspecified; I25.10 Atherosclerotic heart disease of native coronary artery without angina pectoris; I87.2 Venous insufficiency (chronic) (peripheral); Z95.1 Presence of aortocoronary bypass graft; Z88.1 Allergy status to other antibiotic agents; Z91.041 Radiographic dye allergy status; Z91.013 Allergy to seafood; Z88.5 Allergy status to narcotic agent; Z91.018 Allergy to other foods; Z79.899 Other long term (current) drug therapy; Z79.4 Long term (current) use of insulin; Z79.82 Long term (current) use of aspirin
CPT/HCPCS: G0463

== ENCOUNTER 2019-04-15 19:48 | Inpatient (IN) | payer OTHER ==
[~2019-04-15] VITALS: Ht 157.5 cm; Wt 107.6 kg
[2019-04-15] MEDS ORDERED: Bumetanide1 MG PO (20:05)
[2019-04-15] MEDS ORDERED: SENN187 PO (20:08)
[2019-04-15 20:21] LABS: BASOPHILS ABSOLUTE AUTO 0.11 K/mm3 (0.00-0.23); BASOPHILS PERCENT AUTO 1 % (0-2); EOSINOPHILS ABSOLUTE AUTO 0.16 K/mm3 (0.00-0.68); EOSINOPHILS PERCENT AUTO 1 % (0-6); Hematocrit 31.2 % (33.0-51.0); Hemoglobin 9.7 g/dL (11.5-16.0); IMMATURE GRAN ABSOLUTE AUTO 0.44 K/mm3 (0.00-0.10); IMMATURE GRAN PERCENT AUTO 2 % (0-1); LYMPHOCYTES ABSOLUTE AUTO 0.95 K/mm3 (0.84-5.20); LYMPHOCYTES PERCENT AUTO 4 % (21-46); MONOCYTES ABSOLUTE AUTO 1.96 K/mm3 (0.16-1.47); MONOCYTES PERCENT AUTO 9 % (4-13); Mean Corpuscular HGB 23.4 pg (26.0-34.0); Mean Corpuscular HGB Conc 31.1 g/dL (31.5-36.5); Mean Corpuscular Volume 75 fL (80-100); Mean Platelet Volume 10.1 fL (9.1-12.4); NEUTROPHILS ABSOLUTE AUTO 17.82 K/mm3 (1.96-9.15); NEUTROPHILS PERCENT AUTO 83 % (41-73); Platelet Count 393 K/mm3 (150-400); RDW Coefficient Variation 18.4 % (11.7-14.2); RDW Standard Deviation 50.1 fL (35.1-46.3); Red Blood Cell Count 4.15 M/mm3 (3.80-5.20); White Blood Cell Count 21.44 K/mm3 (4.00-11.30)
[2019-04-15] MEDS ORDERED: VITAMIN D325 MCG PO (20:23)
[2019-04-15] MEDS ORDERED: VOLTAREN100 GM TOP (20:25)
[2019-04-15] MEDS ORDERED: FERSU300 PO (20:26)
[2019-04-15] MEDS ORDERED: TRESIBA FL100 UNIT/1 SC (20:28)
[2019-04-15] MEDS ORDERED: JARDIANCE10 MG PO (20:30)
[2019-04-15] MEDS ORDERED: HYDROCODONE-AC1 EAC1 PO (20:30)
[2019-04-15] MEDS ORDERED: SPIRONOLACTONE25 MG PO (20:30)
[2019-04-15] MEDS ORDERED: CALC.25 PO (20:30)
[2019-04-15] MEDS ORDERED: Bumetanide2 MG PO (20:31)
[2019-04-15 20:34] LABS: Albumin, Blood 2.8 g/dL (3.4-5.0); Albumin/Globulin Ratio 0.7 (0.8-1.8); Bilirubin, Total 0.8 mg/dL (0.1-1.0); Bun/Creatinine Ratio 49.3 (12.0-20.0); Calcium, Blood 8.6 mg/dL (8.5-10.1); Creatinine, Blood 1.38 mg/dL (0.40-1.00); Globulin, Blood 4.1 g/dL (2.2-4.0); Potassium, Blood 4.5 mmol/L (3.5-5.5); Total Protein, Blood 6.9 g/dL (6.4-8.2)
[2019-04-15 23:01] LABS: Source, Urine Clean Catch
[2019-04-15 23:03] LABS: Bilirubin, Urine Neg (Neg); Blood, Urine 1+ (Neg); Glucose Qualitative, Urine Neg (Neg); Ketones, Urine Neg (Neg); Leukocyte Esterase, Urine Neg (Neg); Nitrite, Urine Neg (Neg); Protein, Urine Neg (Neg); Specific Gravity, Urine 1.015 (1.003-1.022); Urobilinogen, Urine NORM (Normal)
[2019-04-15 23:04] LABS: Appearance, Urine Clear (Clear); Color, Urine Yellow (P-Yellow)
[2019-04-15 23:08] LABS: White Blood Cells, Urine 0-2 /hpf (0-5)
[2019-04-15 23:09] LABS: Amorphous Light (0-Heavy); Bacteria Mod /hpf; Red Blood Cells, Urine 0-2 /hpf (0-2); Squamous Epithelial Cells Few /hpf (Few); Yeast/Fungi Urine Few /hpf
--- NOTE | 2019-04-16 03:19 | NUR ---
PATIENT ARRIVED TO MED FLOOR AND ADMISSION WAS COMPLETED. PATIENT UNABLE TO TALK ABOUT HER MEDS, SAYS SHE HAS A CAREGIVER WHO HANDLES HER MEDS FOR HER. WILL HAVE TO CALL IN THE AM FOR UPDATED LIST. PT CRYING AND MOANING FROM THE PAIN. VERIFIED DOSE GIVEN IN ER AND GAVE PAIN MED PER EMAR. PT RESTING QUIETLY NOW.
[2019-04-16 05:26] LABS: BASOPHILS ABSOLUTE AUTO 0.09 K/mm3 (0.00-0.23); BASOPHILS PERCENT AUTO 0 % (0-2); EOSINOPHILS ABSOLUTE AUTO 0.12 K/mm3 (0.00-0.68); EOSINOPHILS PERCENT AUTO 1 % (0-6); Hematocrit 29.7 % (33.0-51.0); Hemoglobin 9.1 g/dL (11.5-16.0); IMMATURE GRAN ABSOLUTE AUTO 0.47 K/mm3 (0.00-0.10); IMMATURE GRAN PERCENT AUTO 2 % (0-1); LYMPHOCYTES ABSOLUTE AUTO 0.91 K/mm3 (0.84-5.20); LYMPHOCYTES PERCENT AUTO 4 % (21-46); MONOCYTES ABSOLUTE AUTO 1.85 K/mm3 (0.16-1.47); MONOCYTES PERCENT AUTO 9 % (4-13); Mean Corpuscular HGB 22.9 pg (26.0-34.0); Mean Corpuscular HGB Conc 30.6 g/dL (31.5-36.5); Mean Corpuscular Volume 75 fL (80-100); Mean Platelet Volume 10.2 fL (9.1-12.4); NEUTROPHILS ABSOLUTE AUTO 17.21 K/mm3 (1.96-9.15); NEUTROPHILS PERCENT AUTO 83 % (41-73); Platelet Count 375 K/mm3 (150-400); RDW Coefficient Variation 18.3 % (11.7-14.2); RDW Standard Deviation 49.7 fL (35.1-46.3); Red Blood Cell Count 3.97 M/mm3 (3.80-5.20); White Blood Cell Count 20.65 K/mm3 (4.00-11.30)
--- NOTE | 2019-04-16 06:24 | NUR ---
SPOKE TO DR REGARDING PT PAIN COVERAGE AND RECEIVED AN ORDER FOR A ONE TIME DOSE OF DILAUDID 2 MG IVP. PT WAS UNABLE TO PROVIDE DETAILS ABOUT HER MEDS SHE SAYS "RACHEL MAY TAKES CARE OF THAT AND WE WILL HAVE TO TRY TO REACH HER DURING THE DAY TODAY" THE RIGHT FOOT IS GANGRENOUS AND THE PAIN RADIATES TO THE HIP. SHE HAS BEEN NPO SINCE HER ARRIVAL TO THE FLOOR. AN ATTMEPT WAS MADE TO CALL DR CALDERA BUT HIS OFFICE HAS NO V/M SO THAT CONSULT IS BEING PASSED TO DAY SHIFT.
--- NOTE | 2019-04-16 09:00 | NUR ---
PT RESPONDING AND MOANING IN PAIN THIS MORNING. THE 1 TIME ORDER OF DILAUDID GIVEN. CONTINUOUS OXIMETRY PLACED AND O2 STARTED BECAUSE OF SATS 88-92%. A.M. MEDS HELD DUE TO NPO STATUS.
--- NOTE | 2019-04-16 13:00 | NUR ---
PT NPO FOR POSSIBLE STENT PLACEMENT IN LLE PER DR. BRIGHT. HAS BEEN SEEN BY DR. JON WELL TODAY. DR. CALDERA WAS SPOKEN TO BY DR. ORO AND DR. BROWN NOT GLASS RIBBON MACHINE OPERATOR ASSISTANT THIS WEEK. PT MORE AWAKE AND ALERT APPROX NOONTIME WITH MORNING MEDS GIVEN. HELD XARELTO FOR POSSIBLE SURGERY. REPOSITIONED AND PAIN MEDS GIVEN AGAIN. SPOKE WITH MD ABOUT OXYCODONE HELPING AT HOME. SPOKE WITH CAREGIVER RACHEL JEFFERS AND OBTAINED INFORMATION ABOUT A SISTER THAT LIVES OUT OF TOWN BY THE NAME OF KENNA DESTINI . RECEIVED VERBAL PERMISSION FROM PT TO SPEAK WITH SISTER. SPOKE WITH KENNA ON PHONE AND GAVE HER AN UPDATE.
--- NOTE | 2019-04-16 16:29 | NUR ---
Inital Spiritual Care note: Myles appears quite sleepy. She was moaning quietly when I entered room. she opened ehr eyes to touch, but said very little. she nodded 'yes' to prayer, but fell back to sleep as I did. No family/friends present at time of visit. I will remain available.
--- NOTE | 2019-04-16 17:09 | NUR ---
PT TAKEN TO REGULATORY CONSULTANT AT 1530 VIA HER BED. REPORT GIVEN TO DATA CONTROL ASSISTANT FOR PT TO TRANSFER TO U 9. BELONGINGS MOVED TO U 9
--- NOTE | 2019-04-16 18:33 | NUR ---
1814 PT TRANSFERRED TO PCU 9 FROM [facility] S/P RE-VASCULARIZATION WITH DR BRIGHT. PT HAS FAILED ANGIO SEAL SITE, THAT HAD MANUAL PRESSURE HELD BY ICE CREAM SCOOPER. SITE HAS OLD DRAINAGE, BUT IS SOFT, NON-TENDER. SURROUNDING SKIN IS MACERATED/RED/BLEEDING. PER ICE CREAM SCOOPER , SURROUNDING SKIN WAS LIKE THAT PRIOR TO START OF PROCEDURE. PT ARRIVED BACK OBTUNDED, AWAKENS WHEN CALLED, BUT FALL'S BACK TO SLEEP IMMEDIATELY. PT IS ON 2L NC. TELEMETRY SHOWS PT TO BE IN A SINUS RHYTHM HR 60'S.
--- NOTE | 2019-04-16 20:30 | NUR ---
CARE ASSUMPTION PT LETHARGIC. OPENS EYES TO NAME &/OR TOUCH THEN QUICKLY GOES BACK TO SLEEP. VSS. SPO2 > 92% ON 1L NC. MONITOR SHOWS NSR, HR 60's. R GROIN SITE SOFT W/ OLD DRIED BLOOD AT SITE. SKIN SURROUNDING ACCESS SITE NOTED TO BE RED W/ SLIGHT BLEEDING. PT W/ AKA TO R LEG. L LEG W/ PITTING EDEMA AND GANGRENE TO L FOOT. L FOOT PULSE DETECTED W/ DOPPLER. D5 GTT INFUSING PER ORDERS W/ CBG 85 @ 1947. WILL CONTINUE TO MONITOR AND PROVIDE CARE.
--- NOTE | 2019-04-16 23:15 | NUR ---
UPDATE MENTATION PT MORE ALERT, KEEPING EYES OPEN FOR LONGER PERIODS OF TIME. SPEECH IS GARBLED AND INCOMPREHENSIBLE. WILL CONTINUE TO MONITOR.
--- NOTE | 2019-04-17 03:20 | NUR ---
UPDATE PT MORE ALERT, SPEECH INTERMITTENTLY CLEAR, STILL DIFFICULT TO UNDERSTAND AT TIMES. PT CONFUSED NOT APPROPRIATELY STRINGING SENTENCES TOGETHER. PT REPORTS PAIN IN "MY BUTT." PROTECTIVE DRESSING APPLIED TO PRESSURE SORE ON PT'S BACK SIDE. PT BEING REPOSITIONED Q2H. WILL CONTINUE TO MONITOR AND PROVIDE CARE.
[2019-04-17 04:27] LABS: Hematocrit 26.7 % (33.0-51.0); Hemoglobin 8.3 g/dL (11.5-16.0); Mean Corpuscular HGB 23.2 pg (26.0-34.0); Mean Corpuscular HGB Conc 31.1 g/dL (31.5-36.5); Mean Corpuscular Volume 75 fL (80-100); Mean Platelet Volume 9.9 fL (9.1-12.4); Platelet Count 378 K/mm3 (150-400); RDW Coefficient Variation 18.2 % (11.7-14.2); RDW Standard Deviation 49.2 fL (35.1-46.3); Red Blood Cell Count 3.57 M/mm3 (3.80-5.20); White Blood Cell Count 26.94 K/mm3 (4.00-11.30)
[2019-04-17 04:50] LABS: Bun/Creatinine Ratio 47.3 (12.0-20.0); Calcium, Blood 8.4 mg/dL (8.5-10.1); Creatinine, Blood 1.29 mg/dL (0.40-1.00); Potassium, Blood 4.5 mmol/L (3.5-5.5)
--- NOTE | 2019-04-17 07:31 | NUR ---
ASSUMED CARE: PT RESTING IN BED, APPEARS DROWSY BUT ANSWERING QUESTIONS. RIGHT GROIN SITE APPEARS CLEAN WITH NO SIGN OF BLEEDING OR HEMATOMA. SISTER CALLED AND HAS BEEN GIVEN AN UPDATE THIS AM
--- NOTE | 2019-04-17 07:36 | NUR ---
SHIFT SUMMARY PT A&O TO SELF & LOCATION, FOLLOWING INSTRUCTIONS. PT MORE ALERT THIS AM, GRADUALLY SPEAKING MORE CLEARLY. MONITOR SHOWS NSR, HR 60's. SPO2 > 92% ON 1L NC. PT C/O PAIN IN "BUTT" AND "LEG", MEDICATED PER EMAR X2 THIS SHIFT. R GROIN SITE WNL, NO BLEED, NO HEMATOMA. SURROUNDING SKIN OF GROIN AREA EXCORIATED W/ SCANT BLEEDING. LLE W/ PITTING EDEMA. L FOOT W/ WET GANGRENE DRAINING YELLOW/BROWN DISCHARGE. R AKA NOTED. BOWENS CATH PATENT AND DRAINING DARK YELLOW, ODOROUS URINE. PT MOVED FROM PCU 09 TO PCU 11 THIS SHIFT FOR UTILIZATION OF LIFT ROOM D/T REPORT OF PT REQUIRING LIFT AND BEING WHEELCHAIR BOUND AT BASELINE. 2 PERSON MAX ASSIST FOR Q2H REPOSITIONING IN BED. REPORT GIVEN TO DAY SHIFT RN.
--- NOTE | 2019-04-17 07:40 | NUR ---
ASSUMED CARE OF PT. IN NO ACUTE DISTRESS AT THIS TIME, RESTING COMFORTABLY. DENIES ANY NEEDS, CALL LIGHT AND POSSESSIONS IN REACH. WILL CONTINUE TO MONITOR.
--- NOTE | 2019-04-17 11:00 | NUR ---
CALLED DR. ZHONG TO CLARIFY WHETHER OR NOT PT WAS TO GO IN FOR A PROCEDURE. STATED HE PLANS TO SEE THE PT TODAY TO RE-EVALUATE. NO NEW ORDERS AT THIS TIME.
--- NOTE | 2019-04-17 11:49 | NUR ---
SPOKE WITH DR ORO ABOUT PT'S DIET. DR ORO REQUESTED TO DISCUSS WITH DR JON. DR JON SAID TO ASK DR BRIGHT IF PROCEDURE NEEDED TO BE DONE. DR BRIGHT STATES AFTER YESTERDAY'S PROCEDURE HE HAS NO FURTHER INTERVENTIONS IN MIND. REPORTED BACK TO DR JON WHO STATES WE CAN ALLOW PT TO EAT HE PLANS TO REEVALUATE HER EITHER THIS AFTERNOON OR TOMORROW AM. REPORT CALLED TO MEDICAL FLOOR RN.
--- NOTE | 2019-04-17 12:15 | NUR ---
REPORT GIVEN TO [facility] RN. PT TRANSPORTED TO FLOOR VIA HOSPITAL BED. IN NO ACUTE DISTRESS AT THIS TIME.
--- NOTE | 2019-04-17 17:48 | NUR ---
SUMMARY PT SITTING UP IN BED EATING DINNER, PT TRANSFERRED UP FROM PCU AROUND LUNCH TIME, PT IS ALERT AND ORIENTED, ON BED REST, NEEDS FREQUENT REPOSITIONING FOR COMFORT, L FOOT IS DISCOLORED AND OOZING SEROUS FLUID, DR JON CAME TO SEE THE PT THIS EVENING, HE REPORTS THE REDNESS TO THE LEG HAS IMPROVED, PLAN IS TO WATCH AND WAIT TO SEE HOW MUCH IT CAN IMPROVE BEFORE THEY DO SURGERY, PT HAS BEEN MED PER EMAR FOR PAIN, VSS, NO ACUTE CHANGES, WILL CONT TO MONITOR
[2019-04-18 06:03] LABS: Hematocrit 26.2 % (33.0-51.0); Hemoglobin 8.2 g/dL (11.5-16.0); Mean Corpuscular HGB 23.6 pg (26.0-34.0); Mean Corpuscular HGB Conc 31.3 g/dL (31.5-36.5); Mean Corpuscular Volume 76 fL (80-100); Mean Platelet Volume 9.9 fL (9.1-12.4); NRBC ABSOLUTE 0.02 K/mm3 (0.00-0.02); NRBC Auto 0.1 /100 WBC (0.0-0.2); Platelet Count 354 K/mm3 (150-400); RDW Coefficient Variation 18.4 % (11.7-14.2); RDW Standard Deviation 50.5 fL (35.1-46.3); Red Blood Cell Count 3.47 M/mm3 (3.80-5.20); White Blood Cell Count 25.11 K/mm3 (4.00-11.30)
[2019-04-18 06:27] LABS: Calcium, Blood 8.6 mg/dL (8.5-10.1); Creatinine, Blood 1.61 mg/dL (0.40-1.00); Potassium, Blood 4.1 mmol/L (3.5-5.5)
--- NOTE | 2019-04-18 07:03 | NUR ---
SHIFT SUMMARY PT HAS BEEN IN PAIN AND HAS BEEN MEDICATED MULTIPLE TIMES TONIGHT. SHE HAD BOTH OXYCODONE AND FENTANYL TONIGHT. SHE CRIES OUT WHEN IN PAIN. HER LEG WAS REVASCULARIZED BY DR. BRIGHT BUT IT IS STILL REDDENED AND HER TOES ARE BLACK ESCHAR. HER LS WERE CLR AND BT + X4. HER IV IS PATENT AND INTACT.
[2019-04-18] MEDS ORDERED: MIRALAX17 G1 PO (09:54)
[2019-04-18] MEDS ORDERED: FLUC150A PO (09:55)
--- NOTE | 2019-04-18 17:48 | NUR ---
PT AOX4 AND COOPERATIVE OF CARE. PT HAS HAD CONSTANT PAIN IN LLE. LEG IS RED AND FOOT OOZES FLUID. USING CHUCKS TO PREVENT MESS ON THE BED. PT NEEDS HELP CHANGING POSITION IN BED SHE GET TO LEANING TO HER R SIDE. PT APPEARS VERY TIRED AND WORE OUT. TREATED FOR L LEG PAIN PER EMAR. WILL CONTINUE TO MONITOR.
--- NOTE | 2019-04-19 04:08 | NUR ---
SHIFT SUMMARY LS CLEAR AND DIMINISHED; BT+ X4. NO BM NOTED. PT IS PLEASANT AND COOPERATIVE. PAIN SEEMS MORE CONTROLLED TONIGHT COMPARED TO LAST NIGHT. PT HAS APPEARED TO BE SLEEPING MOST OF THE NIGHT. MEDICATED WITH OXYCODONE X1 AND FENTANYL X1. BOTH MEDS WERE EFFECTIVE IN REDUCING HER PAIN AND ALLOWING HER TO SLEEP. SHE WOKE UP ONE TIME AND STATED SHE WAS IN PAIN, SO THIS RN WAITED FOR HER TO ASK FOR PAIN MEDS BUT SHE FELL ASLEEP BEFORE SHE COULD STATE SHE WANTED PAIN MEDS. I HAVE CHECKED ON HER MULTIPLE TIMES T/O THE NIGHT AND SHE APPEARS TO BE SLEEPING EACH TIME.
[2019-04-19 08:46] LABS: Bun/Creatinine Ratio 34.3 (12.0-20.0); Calcium, Blood 8.4 mg/dL (8.5-10.1); Creatinine, Blood 2.04 mg/dL (0.40-1.00); Potassium, Blood 4.5 mmol/L (3.5-5.5)
--- NOTE | 2019-04-19 17:22 | NUR ---
PT AOX4 AND COOPERATIVE OF CARE. PT CONTINUES TO HAVE PAIN IN L LEG AND IS TREATED PER EMAR. NO URINE OUTPUT, BLADDER SCAN OF 891. BOWENS WOULD NOT DRAIN. THIS MUD GRINDER ATTEMPTED 3 TIMES WITH NO RESULTS. JANITORIAL ASSISTANT ATTEMPTED X2 BALLOON FILLED, BUT NO OUTPUT. BOWENS APPEARS TO BE INCORRECT PLACE. DR HANDLEY NOTIFIED AND ULTRA SOUND ORDER TO RECHECK BLADDER AMOUNT IN CASE IT WAS INCORRECT. PT TOLERATED WELL CONSIDERING THE DIFFICULTY. PT HAS NEEDED REPOSITIONED EVERY COUPLE HOURS AND HAD A BED BATH TODAY. CHANGED MEPIPLEX UNDER PANUS X2. WILL CONTINUE TO MONITOR.
--- NOTE | 2019-04-19 19:16 | NUR ---
RENAL US RESULTS NOTIFIED DR HANDLEY THAT THE BLADDER ULTRASOUND REVEALED 0 VOLUME IN THE BLADDER AND THAT THE BOWENS WAS IN THE CORRECT LOCATION. NEW ORDERS FOR 500 CC BOLUS X1 AND A LITER TO RUN AFTER THAT.
[2019-04-20 01:12] LABS: Source, Urine Catheter
[2019-04-20 01:13] LABS: Appearance, Urine Hazy (Clear); Bilirubin, Urine Neg (Neg); Blood, Urine 5+ (Neg); Color, Urine Amber (P-Yellow); Glucose Qualitative, Urine Neg (Neg); Ketones, Urine 1+ (Neg); Leukocyte Esterase, Urine 3+ (Neg); Nitrite, Urine Neg (Neg); Protein, Urine 3+ (Neg); Specific Gravity, Urine 1.015 (1.003-1.022); Urobilinogen, Urine NORM (Normal)
[2019-04-20 01:23] LABS: Amorphous Light (0-Heavy); Bacteria Many /hpf; Squamous Epithelial Cells Not Seen /hpf (Few)
--- NOTE | 2019-04-20 04:38 | NUR ---
SHIFT SUMMARY PT A&O X4. LLE CON'T TO DRAIN FLUID. CHUCKS IN PLACE UNDERNEATH THE LEG TO ALLOW DRAINAGE. PAIN CONTROLLED WITHOUT ANY PAIN MEDS TONIGHT. SHE APPEARS TO BE SLEEPING AND HAS APPEARED THIS WAY SINCE 0000 WHEN SHE BECAME NPO. 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 SURGEON STATES HE IS THINKING ABOUT TAKING THE LOWER PART OF HER LEG FROM BELOW THE KNEE BUT WILL DETERMINE MORE DURING SURGERY. PT IS A LITTLE CONCERNED ABOUT THE SURGERY BUT THIS RN TRIED TO REASSURE HER. MEDICATED HER PER EMAR EXCEPT HER PRILOSEC WILL BE HELD D/T BEING NPO.
[2019-04-20 05:06] LABS: BASOPHILS ABSOLUTE AUTO 0.08 K/mm3 (0.00-0.23); BASOPHILS PERCENT AUTO 0 % (0-2); EOSINOPHILS PERCENT AUTO 1 % (0-6); Hematocrit 25.8 % (33.0-51.0); IMMATURE GRAN ABSOLUTE AUTO 0.32 K/mm3 (0.00-0.10); IMMATURE GRAN PERCENT AUTO 2 % (0-1); LYMPHOCYTES ABSOLUTE AUTO 0.82 K/mm3 (0.84-5.20); LYMPHOCYTES PERCENT AUTO 5 % (21-46); MONOCYTES ABSOLUTE AUTO 2.02 K/mm3 (0.16-1.47); MONOCYTES PERCENT AUTO 11 % (4-13); Mean Corpuscular HGB 23.6 pg (26.0-34.0); Mean Corpuscular Volume 76 fL (80-100); Mean Platelet Volume 9.7 fL (9.1-12.4); NEUTROPHILS PERCENT AUTO 81 % (41-73); Platelet Count 350 K/mm3 (150-400); RDW Coefficient Variation 18.6 % (11.7-14.2); RDW Standard Deviation 51.3 fL (35.1-46.3); Red Blood Cell Count 3.39 M/mm3 (3.80-5.20); White Blood Cell Count 17.94 K/mm3 (4.00-11.30)
[2019-04-20 05:26] LABS: Bun/Creatinine Ratio 31.1 (12.0-20.0); Creatinine, Blood 2.28 mg/dL (0.40-1.00); Potassium, Blood 4.4 mmol/L (3.5-5.5)
[2019-04-20 05:32] LABS: International Normalized Ratio 1.36
--- NOTE | 2019-04-20 13:49 | NUR ---
PT AOX4 AND COOPERATIVE OF CARE. PT CONTINUED TO NEED TREATMENT FOR L LEG PAIN AND FREQUENT POSISTION CHANGES. PT CALLED APPROPRIATELY AND WAS COOPERATIVE SHE COULD BE. EDEMA WORSE TODAY OF ABDOMEN AND NOTED EDEMA WHEN TRANSFERING OF PT'S R ELBOW.GOGO HAS VERY LOW OUTPUT,BUT IMPROVED FROM HAVING NONE YESTERDAY. CONCERNS ABOUT GFR DOWN TO [address] HANDLEY IN AM. ORDERS FOR MORE FLUID ADJUSTED. PT TRANSPORTED OUT OF ROOM FOR BKA AT 1330.
--- NOTE | 2019-04-20 14:05 | NUR ---
"DAY SURGERY RN | TO OR BOTH DOCTORS AND OFFICE CLIN ASST HAVE SEEN. REPORT TO NATALI JLUIO. TO OR."
--- NOTE | 2019-04-20 14:43 | NUR ---
04/20/19 1443 Calvin Chandler PT ON SCHEDULDED ABX. PT ENTERED OR WITH BOWENS IN PLACE.
--- NOTE | 2019-04-20 17:35 | NUR ---
ARRIVAL TO UNIT PT. ARRIVES FROM POST OP, DROWSY BUT ABLE TO ANSWER SOME QUESTIONS. PT CURRENTLY ON 6LNC, AND REPORTS DIFFICULTY BREATHING. LS COARSE AND DIM. PT. VSS UPON ARRIVAL TO UNIT. LLE BANDAGED ; CDI AT THIS TIME. BOWENS IN PLACE, DRAINING TO GRAVITY. CALL TO DR. HANDLEY TO UPDATE ON PT. CONDITION. ADDITIONAL LABS ORDERED AND FLUIDS TO BE STARTED.CALL LIGHT IN REACH.
--- NOTE | 2019-04-20 17:45 | NUR ---
TRANSFERED TO PCU 2: PT TRANSFERED TO PCU AT THIS TIME. NO ACUTE DISTRESS NOTED. CENTRAL LINE WAS REMOVED AND NO S/S OF BLEEDING NOTED AT OR AROUND THE SITE. TRANSFERED TO PCU BED WITH 4 STAFF MEMBERS.
[2019-04-20 18:25] LABS: BASOPHILS PERCENT AUTO 1 % (0-2); EOSINOPHILS ABSOLUTE AUTO 0.14 K/mm3 (0.00-0.68); EOSINOPHILS PERCENT AUTO 1 % (0-6); Hematocrit 21.1 % (33.0-51.0); Hemoglobin 6.9 g/dL (11.5-16.0); IMMATURE GRAN ABSOLUTE AUTO 0.77 K/mm3 (0.00-0.10); IMMATURE GRAN PERCENT AUTO 4 % (0-1); LYMPHOCYTES ABSOLUTE AUTO 0.83 K/mm3 (0.84-5.20); LYMPHOCYTES PERCENT AUTO 4 % (21-46); MONOCYTES ABSOLUTE AUTO 1.94 K/mm3 (0.16-1.47); MONOCYTES PERCENT AUTO 10 % (4-13); Mean Corpuscular HGB 25.7 pg (26.0-34.0); Mean Corpuscular HGB Conc 32.7 g/dL (31.5-36.5); Mean Corpuscular Volume 78 fL (80-100); NEUTROPHILS ABSOLUTE AUTO 16.19 K/mm3 (1.96-9.15); NEUTROPHILS PERCENT AUTO 81 % (41-73); Platelet Count 236 K/mm3 (150-400); RDW Standard Deviation 48.5 fL (35.1-46.3); Red Blood Cell Count 2.69 M/mm3 (3.80-5.20); White Blood Cell Count 19.97 K/mm3 (4.00-11.30)
[2019-04-20 18:38] LABS: Bun/Creatinine Ratio 32.4 (12.0-20.0); Calcium, Blood 6.9 mg/dL (8.5-10.1); Creatinine, Blood 2.1 mg/dL (0.40-1.00); Potassium, Blood 4.5 mmol/L (3.5-5.5)
--- NOTE | 2019-04-20 18:46 | NUR ---
ATTEMPTED TO CALL DAY SHIFT HOSP TO REPORT LAB VALUES; UNABLE TO REACH DR AND VOICEMAIL IS FULL. WILL ATTEMPT [facility].
--- NOTE | 2019-04-20 19:30 | NUR ---
PATIENT AWAKE, A&OX3. PATIENT C/O PAIN TO LEFT LEG AND HIPS RATING 9/10 ACHE. FENTANYL IV GIVEN FOR PAIN. HYPOTENSION CONTINUES. DRESSING TO LEFT AKA INTACT WITH SMALL AMT OF PINK DRAINAGE TO BOTTOM OF DRESSING. ICE PACK PLACED TO LEFT STUMP AND ELEVATED ON SMALL PILLOW. PLAN TO ADMINISTER 2 UNITS PRBC. BIOX 99% ON 4L/NC TITRATING OXYGEN DOWN TO 2L/NC.
--- NOTE | 2019-04-20 20:47 | NUR ---
EMERY DAIRY TESTER NOTIFIED OF PATIENT CONTINUED PAIN AND QUESTION REGARDING XARELTO DOSE TONIGHT DUE TO BLEEDING IN OR, AND REQUIRING 2 UNITS PRBC. PLAN TO HOLD XARELTO TONIGHT. FENTANYL CHANGED TO Q2HR IF OXYCODONE NOT EFFECTIVE.
--- NOTE | 2019-04-20 22:33 | NUR ---
PATIENT CONTINUES TO C/O 9/10 PAIN FREQUENTLY ADJUSTING BED AND SUPPORT UNDER LEFT LEG. PATIENT JESUS FIRST UNIT PRBS WELL, 2ND INFUSING NOW.
[2019-04-21 00:30] LABS: BASOPHILS ABSOLUTE AUTO 0.09 K/mm3 (0.00-0.23); BASOPHILS PERCENT AUTO 0 % (0-2); EOSINOPHILS ABSOLUTE AUTO 0.04 K/mm3 (0.00-0.68); EOSINOPHILS PERCENT AUTO 0 % (0-6); Hematocrit 29.4 % (33.0-51.0); Hemoglobin 9.8 g/dL (11.5-16.0); IMMATURE GRAN ABSOLUTE AUTO 0.88 K/mm3 (0.00-0.10); IMMATURE GRAN PERCENT AUTO 3 % (0-1); LYMPHOCYTES ABSOLUTE AUTO 0.94 K/mm3 (0.84-5.20); LYMPHOCYTES PERCENT AUTO 4 % (21-46); MONOCYTES ABSOLUTE AUTO 2.08 K/mm3 (0.16-1.47); MONOCYTES PERCENT AUTO 8 % (4-13); Mean Corpuscular HGB 27.1 pg (26.0-34.0); Mean Corpuscular HGB Conc 33.3 g/dL (31.5-36.5); Mean Platelet Volume 9.7 fL (9.1-12.4); NEUTROPHILS ABSOLUTE AUTO 21.48 K/mm3 (1.96-9.15); NEUTROPHILS PERCENT AUTO 84 % (41-73); Platelet Count 254 K/mm3 (150-400); RDW Coefficient Variation 16.7 % (11.7-14.2); RDW Standard Deviation 50.3 fL (35.1-46.3); Red Blood Cell Count 3.61 M/mm3 (3.80-5.20); White Blood Cell Count 25.51 K/mm3 (4.00-11.30)
[2019-04-21 00:31] LABS: Mean Corpuscular Volume 81 fL (80-100)
[2019-04-21 05:28] LABS: BASOPHILS ABSOLUTE AUTO 0.11 K/mm3 (0.00-0.23); BASOPHILS PERCENT AUTO 0 % (0-2); EOSINOPHILS ABSOLUTE AUTO 0.01 K/mm3 (0.00-0.68); EOSINOPHILS PERCENT AUTO 0 % (0-6); Hematocrit 29.2 % (33.0-51.0); Hemoglobin 9.8 g/dL (11.5-16.0); IMMATURE GRAN ABSOLUTE AUTO 0.92 K/mm3 (0.00-0.10); IMMATURE GRAN PERCENT AUTO 3 % (0-1); LYMPHOCYTES ABSOLUTE AUTO 0.89 K/mm3 (0.84-5.20); LYMPHOCYTES PERCENT AUTO 3 % (21-46); MONOCYTES ABSOLUTE AUTO 1.82 K/mm3 (0.16-1.47); MONOCYTES PERCENT AUTO 7 % (4-13); Mean Corpuscular HGB 26.9 pg (26.0-34.0); Mean Corpuscular HGB Conc 33.6 g/dL (31.5-36.5); Mean Corpuscular Volume 80 fL (80-100); Mean Platelet Volume 9.8 fL (9.1-12.4); NEUTROPHILS ABSOLUTE AUTO 23.94 K/mm3 (1.96-9.15); NEUTROPHILS PERCENT AUTO 87 % (41-73); Platelet Count 285 K/mm3 (150-400); RDW Coefficient Variation 16.6 % (11.7-14.2); RDW Standard Deviation 47.9 fL (35.1-46.3); Red Blood Cell Count 3.64 M/mm3 (3.80-5.20); White Blood Cell Count 27.69 K/mm3 (4.00-11.30)
[2019-04-21 05:48] LABS: Bun/Creatinine Ratio 36.3 (12.0-20.0); Calcium, Blood 7.6 mg/dL (8.5-10.1); Creatinine, Blood 1.82 mg/dL (0.40-1.00); Potassium, Blood 4.5 mmol/L (3.5-5.5)
--- NOTE | 2019-04-21 06:03 | NUR ---
SUMMARY PATIENT CONTINUES TO C/O PAIN TO HER LEFT STUMP AND HIP T/O NIGHT. FREQUENT REPOSITIONING FOR COMFORT, ICE PLACED TO SURGICAL SITE AND ATTEMPTING TO KEEP STUMP ELEVATED. MEDICATING FREQUENTLY FOR PAIN. HYPOTENSION RESOLVING. H&H REMAINING STABLE THIS AM. DRESSING REMAINS IN PLACE TO LEFT STUMP WITH MOD AMT OF SEROSANG LEAKING FROM DRESSING.
--- NOTE | 2019-04-21 13:47 | NUR ---
CARE ASSUMED REPORT RECEIVED, CARE ASSUMED AT 0700 FROM SUMANTH CEDILLO. PT RESTING WITH EYES CLOSED, BUT AROUSES UPON ENTERING ROOM. THROUGHOUT MORNING, PT MEDICATED FOR PAIN NEEDED. VITALS STABLE. SEE SHIFT ASSESSMENT. PT'S CAREGIVER TO BEDSIDE THIS AFTERNOON AND SPOKE WITH NEREIDA JAY RN WITH DISCHARGE PLANNING REGARDING CONCERNS FOR DISCHARGE. PT REPORTS BEING WORRIED ABOUT PAIN MANAGEMENT. PT HAS MINIMAL APPETITE EVEN WITH ENCOURAGEMENT FROM CAREGIVER. CAREGIVER EXPRESSES CONCERN ABOUT USING TRAMADOL IN ADDITION TO OXYCODONE AND FENTANYL PT APPEARS TO BE "SEEING THINGS A LITTLE BIT," WHICH IS DIFFERENT FROM HER BASELINE. DISCUSSED WITH PT AND SHE IS AGREEABLE. PT MOSTLY RESTING QUIETLY. AGREES TO ADL'S. LEFT WOUND SITE UNCHANGED WITH INITIAL ASSESSMENT, WAITING FOR SURGEON ROUNDING FOR INTIAL DRESSING CHANGE TO BE COMPLETED.
[2019-04-21 17:06] LABS: BASOPHILS ABSOLUTE AUTO 0.14 K/mm3 (0.00-0.23); BASOPHILS PERCENT AUTO 1 % (0-2); EOSINOPHILS ABSOLUTE AUTO 0.03 K/mm3 (0.00-0.68); EOSINOPHILS PERCENT AUTO 0 % (0-6); Hematocrit 30.2 % (33.0-51.0); IMMATURE GRAN PERCENT AUTO 3 % (0-1); LYMPHOCYTES ABSOLUTE AUTO 1.24 K/mm3 (0.84-5.20); LYMPHOCYTES PERCENT AUTO 4 % (21-46); MONOCYTES ABSOLUTE AUTO 2.12 K/mm3 (0.16-1.47); MONOCYTES PERCENT AUTO 7 % (4-13); Mean Corpuscular HGB 26.7 pg (26.0-34.0); Mean Corpuscular HGB Conc 33.1 g/dL (31.5-36.5); Mean Corpuscular Volume 81 fL (80-100); Mean Platelet Volume 9.9 fL (9.1-12.4); NEUTROPHILS ABSOLUTE AUTO 24.29 K/mm3 (1.96-9.15); NEUTROPHILS PERCENT AUTO 85 % (41-73); NRBC ABSOLUTE 0.02 K/mm3 (0.00-0.02); NRBC Auto 0.1 /100 WBC (0.0-0.2); Platelet Count 306 K/mm3 (150-400); RDW Standard Deviation 49.7 fL (35.1-46.3); Red Blood Cell Count 3.74 M/mm3 (3.80-5.20); White Blood Cell Count 28.62 K/mm3 (4.00-11.30)
--- NOTE | 2019-04-21 19:34 | NUR ---
SUMMARY SINCE PREVIOUS NOTE, PT HAS RESTED QUIETLY. CALLING OCCASIONALLY FOR NEEDS INCLUDING BEDPAN. PT REPORTS BEING IN PAIN, BUT SLEEPS SOUNDLY UNLESS STAFF IS IN ROOM. PT EVEN STATES, "I AM SLEEPY BUT I AM HURTING." AGREEABLE WITH PAIN MEDICATION REGIME. OTHERWISE, VITALS STABLE. PT CHANGED TO SURGICAL FLOOR STATUS. SINCE PREVIOUS NOTE, DR. RODRIGUEZ PAGED MULTIPLE TIMES REQUESTING ORDERS TO CHANGE DRESSING. RECEIVED RETURN PHONE CALL TONIGHT STATING OK TO CHANGE DRESSING. NEW DRY FLOW PAD WAS PLACED UNDER LEG APPROX 1500 WITH TURNING DUE TO SLIGHT SATURATION OF PREVIOUS, AND NO NEW DRAINAGE NOTED ON MOST RECENT ROUNDING. PT CONTINUES TO HAVE NO APPETITE EVEN WITH ENCOURAGEMENT. REPORT TO RIANNA, RN TO ASSUME CARE.
--- NOTE | 2019-04-21 21:39 | NUR ---
ASSUME CARE PATIENT IN BED, ALERT AND ORIENTED, BUT SLEEPY. EASY TO AROUSE WITH VERBAL STIMULI. LUNG SOUNDS COARSE WITH EXPIRATORY WHEEZES. PATIENT ON ROOM AIR WITH SATS ABOVE 92%. PATIENT HAS BOWENS DRAINING TO GRAVITY AND PATENT. L LEG STUMP OOZING, BUT DRESSING NOT SATURATED. ORDERS TO CHANGE GIVEN BY MD. GUARDADO. WILL COTNINUE TO MONITOR.
--- NOTE | 2019-04-21 22:42 | NUR ---
PATIENT ARRIVED FROM ICU11. ALERT AND ORIENTED. PATIENT HAS EDEMA OVER HER FORARMS, ABDOMEN AND BACK, PITTING NON WEEPING. HER ABDOMINAL SKIN FOLDS ARE POSITIVE FOR CREAM-GREENISH EXUDATE ON REMOVED PILLOW CASE. MEPILEX ON COCCYX FOR PREVENTION. RT AKA HAS AN OLD SCAB ON THE END. LT AKA IS COVERED WITH VERA BANDAGE AND DRAINING SEROUS FLUID ON WHITE PAD. CALL LIGHT WITHIN REACH. BED IN LOW POSITION SIDE RAILS X 3 UP.
[2019-04-22 04:24] LABS: BASOPHILS ABSOLUTE AUTO 0.12 K/mm3 (0.00-0.23); BASOPHILS PERCENT AUTO 0 % (0-2); EOSINOPHILS ABSOLUTE AUTO 0.13 K/mm3 (0.00-0.68); EOSINOPHILS PERCENT AUTO 1 % (0-6); Hematocrit 27.7 % (33.0-51.0); Hemoglobin 9.3 g/dL (11.5-16.0); IMMATURE GRAN ABSOLUTE AUTO 0.84 K/mm3 (0.00-0.10); IMMATURE GRAN PERCENT AUTO 3 % (0-1); LYMPHOCYTES ABSOLUTE AUTO 1.38 K/mm3 (0.84-5.20); LYMPHOCYTES PERCENT AUTO 5 % (21-46); MONOCYTES ABSOLUTE AUTO 2.59 K/mm3 (0.16-1.47); MONOCYTES PERCENT AUTO 9 % (4-13); Mean Corpuscular HGB 27.1 pg (26.0-34.0); Mean Corpuscular HGB Conc 33.6 g/dL (31.5-36.5); Mean Corpuscular Volume 81 fL (80-100); Mean Platelet Volume 9.9 fL (9.1-12.4); NEUTROPHILS ABSOLUTE AUTO 22.53 K/mm3 (1.96-9.15); NEUTROPHILS PERCENT AUTO 82 % (41-73); NRBC ABSOLUTE 0.02 K/mm3 (0.00-0.02); NRBC Auto 0.1 /100 WBC (0.0-0.2); Platelet Count 343 K/mm3 (150-400); RDW Coefficient Variation 17.1 % (11.7-14.2); RDW Standard Deviation 49.7 fL (35.1-46.3); Red Blood Cell Count 3.43 M/mm3 (3.80-5.20); White Blood Cell Count 27.59 K/mm3 (4.00-11.30)
[2019-04-22 04:54] LABS: Bun/Creatinine Ratio 40.8 (12.0-20.0); Calcium, Blood 8.1 mg/dL (8.5-10.1); Creatinine, Blood 1.52 mg/dL (0.40-1.00); Potassium, Blood 4.3 mmol/L (3.5-5.5)
--- NOTE | 2019-04-22 05:46 | NUR ---
PATIENT STATED THAT SHE DID SLEEP FOR A FEW HOURS LAST NIGHT. SHE DID NOT COMPLAIN OF PAIN,EXCEPT FOR WHEN SHE WAS TURNED. WHEN REPOSITIONING PT, SHE HAS A VERY HARD TIME BREATHING, OR OVERCOMING THE PRESSURE OF HER ABDOMEN. CATH CARE, TARAN CARE, AND REPOSITIONING NEEDS TO BE DONE QUICKLY SO THAT SHE CAN CATCH HER BREATH. PT SAT ON A BEDPAN THIS AM, NO BM. PT TURNED TO RT SIDE. WITH HOB >60 DEGREES. PT USES CALL LIGHT APPROPRIATELY.
--- NOTE | 2019-04-22 07:30 | NUR ---
PT AWAKE PT GIVEN PAIN MEDS THIS AM AT 0630 STATED PAIN IS STILL ABOUT 8/10 PT STATED NO NAUSEA NO APPEATITE STATED ALSO NO BM PT HAS INCREASED SWELLING TO TRUNK AND AKA BILAT ALSO PUBIC AREA AND BACK
--- NOTE | 2019-04-22 11:33 | NUR ---
DR RODRIGUEZ CHANGED DRESSING SAT WITH CLEAR DRAINAGE SCANT AMOUNT OF SANG PHYSICAL THERAPY WORKED WITH PT AFTER
--- NOTE | 2019-04-22 14:52 | NUR ---
PO PAIN MEDS GIVEN PT REPOSISTIONED ENCOURAGED PT TO GET OOB PT DECLINED EARLIER PYSICAL THERAPY STATED SHE MAY HAVE SOME BRING HER WC FROM HOME PT USES A JILL LIFT AT HOME FOR TRANSFERS
--- NOTE | 2019-04-22 21:10 | NUR ---
SPOKE WITH EMERY ABOUT PATIENTS DIFFUSE EDEMA AND LACTATED RINGERS ORDERS. NEW ORDERS GIVEN TO DC FLUIDS AT THIS TIME. WILL MONITOR PT FOR SOB
--- NOTE | 2019-04-23 04:38 | NUR ---
SHIFT SUMMARY POD 3 L AKA. PT AAOX4 VSS. STUMP SOCK IN PLACE WITH SMALL AMOUNT OF DRAINAGE SEROUS DRAINAGE. PT SKIN VERY EDEMETOUS. PITTING AND TIGHT AROUND MIDSECTION AND IN STUMPS. SKIN RED ON BACKSIDE BARRIER CREAM APPLIED. PT HAS BEEN REPOSITIONING SELF IN BED AND HAS BEEN ASSISTED BY RN AND AIDES. PT MEDICATED FOR PAIN DURING SHIFT. SOB REPORTED WHEN PT LAYS FLAT OR IN LOW FOWLERS. DENIES SOB WHEN UP IN HIGH FOWLERS. SATS HAVE REMAINED ABOVE 92%. BOWENS IN PLACE PATENT AND DRAINING. TOLERATING PO WELL, HAS BEEN CALLING APPROPRIATLY.
[2019-04-23 05:19] LABS: BASOPHILS ABSOLUTE AUTO 0.11 K/mm3 (0.00-0.23); BASOPHILS PERCENT AUTO 1 % (0-2); EOSINOPHILS ABSOLUTE AUTO 0.22 K/mm3 (0.00-0.68); EOSINOPHILS PERCENT AUTO 1 % (0-6); Hematocrit 26.7 % (33.0-51.0); Hemoglobin 8.5 g/dL (11.5-16.0); IMMATURE GRAN ABSOLUTE AUTO 0.52 K/mm3 (0.00-0.10); IMMATURE GRAN PERCENT AUTO 2 % (0-1); LYMPHOCYTES ABSOLUTE AUTO 1.36 K/mm3 (0.84-5.20); LYMPHOCYTES PERCENT AUTO 6 % (21-46); MONOCYTES PERCENT AUTO 12 % (4-13); Mean Corpuscular HGB 26.6 pg (26.0-34.0); Mean Corpuscular HGB Conc 31.8 g/dL (31.5-36.5); Mean Corpuscular Volume 83 fL (80-100); Mean Platelet Volume 9.4 fL (9.1-12.4); NEUTROPHILS ABSOLUTE AUTO 17.51 K/mm3 (1.96-9.15); NEUTROPHILS PERCENT AUTO 78 % (41-73); NRBC ABSOLUTE 0.05 K/mm3 (0.00-0.02); NRBC Auto 0.2 /100 WBC (0.0-0.2); Platelet Count 345 K/mm3 (150-400); RDW Coefficient Variation 18.1 % (11.7-14.2); RDW Standard Deviation 54.3 fL (35.1-46.3); White Blood Cell Count 22.52 K/mm3 (4.00-11.30)
[2019-04-23 05:38] LABS: Bun/Creatinine Ratio 43.3 (12.0-20.0); Calcium, Blood 8.4 mg/dL (8.5-10.1); Creatinine, Blood 1.27 mg/dL (0.40-1.00); Potassium, Blood 4.5 mmol/L (3.5-5.5)
--- NOTE | 2019-04-23 13:54 | NUR ---
SPOKE WITH DR. HANDLEY AT THIS TIME. PT TO BE RESTARTED ON XARELTO DOSE WELL BUMEX TODAY. BOWEL CARE ORDERED, WILL MEDICATE PER EMAR. WILL CTM PT STATUS.
--- NOTE | 2019-04-23 16:47 | NUR ---
SUMMARY: PT IS POD3 L AKA. NO ACUTE CHANGE, VSS. SEE PREVIOUS NOTE. PT ABLE TO WORK WITH PT/OT MINIMALLY. DR. HANDLEY IS AWARE OF 3+-4+ EDEMA, PT HOME DOSE OF BUMEX RESTARTED. Q2 TURNING WITH LIFT, POSITIONED FOR COMFORT. L STUMP DRESSING AND STUMP SOCK CHANGED X1. MEDICATED PER EMAR FOR PAIN. NO SAFETY CONCERNS AT THIS TIME. WILL CTM AND REPORT TO NOC RN
--- NOTE | 2019-04-24 04:02 | NUR ---
SHIFT SUMMARY POD 4 L AKA PT AAOX4, VSS. PT IS SLOW TO RESPOND AT TIMES PER BASELINE HX: OF CVA. LEFT STUMP DRESSING CHANGED, MODERATE AMOUNT YELLOW SS DRAINAGE ON DRESSING. INCISION HAD NO REDNESS AND SMALL BRUISING. REDNESS PRESENT ON PT COCCYX, ATTEMPTING TO REPOSITION EVERY TWO HOURS, PT HAS BEEN DECLINING DURING SHIFT, REPOSITIONING HEAD OF BED INDEPENDENTLY. PAIN MANAGED PER PRN AND WITH REPOSITIONING. PT ATTEMPTING TO HAVE BOWEL MOVEMENT, OFFERED PRN'S TO ASSIST. BOWENS PATENT AND DRAINING AT THIS TIME. CATH CARE PERFORMED DURING SHIFT. PT TOLERATING PO FLUIDS, SOME DIFFICULTY USING LEFT HAND AT THIS TIME, EDEMA STILL DIFFUSE AROUND ENTIRE BODY WITH LARGE AMOUNT OF PITTING EDEMA. RIGHT FOREARM IS SWOLLEN WITH SOME OOZING.
--- NOTE | 2019-04-24 05:23 | NUR ---
PT DECLINED MORNING PO MEDS. SHE STATED SHE WAS SCARED TO SWALLOW AND FEELS THAT SHE HAS BEEN CHOKING MORE FREQUENTLT AND STATES SHE IS HAVING TROUBLE SWALLOWING.
[2019-04-24 09:06] LABS: BASOPHILS ABSOLUTE AUTO 0.12 K/mm3 (0.00-0.23); BASOPHILS PERCENT AUTO 1 % (0-2); EOSINOPHILS ABSOLUTE AUTO 0.23 K/mm3 (0.00-0.68); EOSINOPHILS PERCENT AUTO 1 % (0-6); Hematocrit 24.4 % (33.0-51.0); IMMATURE GRAN ABSOLUTE AUTO 0.36 K/mm3 (0.00-0.10); IMMATURE GRAN PERCENT AUTO 2 % (0-1); LYMPHOCYTES ABSOLUTE AUTO 1.34 K/mm3 (0.84-5.20); LYMPHOCYTES PERCENT AUTO 8 % (21-46); MONOCYTES ABSOLUTE AUTO 2.61 K/mm3 (0.16-1.47); MONOCYTES PERCENT AUTO 16 % (4-13); Mean Corpuscular HGB Conc 32.8 g/dL (31.5-36.5); Mean Corpuscular Volume 82 fL (80-100); Mean Platelet Volume 9.6 fL (9.1-12.4); NEUTROPHILS ABSOLUTE AUTO 11.89 K/mm3 (1.96-9.15); NEUTROPHILS PERCENT AUTO 72 % (41-73); NRBC ABSOLUTE 0.07 K/mm3 (0.00-0.02); NRBC Auto 0.4 /100 WBC (0.0-0.2); Platelet Count 339 K/mm3 (150-400); RDW Coefficient Variation 18.6 % (11.7-14.2); RDW Standard Deviation 55.2 fL (35.1-46.3); Red Blood Cell Count 2.96 M/mm3 (3.80-5.20); White Blood Cell Count 16.55 K/mm3 (4.00-11.30)
[2019-04-24 09:17] LABS: Bun/Creatinine Ratio 43.6 (12.0-20.0); Creatinine, Blood 1.1 mg/dL (0.40-1.00); Potassium, Blood 4.2 mmol/L (3.5-5.5)
--- NOTE | 2019-04-24 17:32 | NUR ---
SUMMARY PATIENT WITH POOR PO INTAKE, STATES SHE HAS HAD NO APPETITE FOR LAST SEVERAL WEEKS. ENCOURAGED TO DRINK ENSURE AND PATIENT HAS DECLINED. PATIENT REQUIRES JILL LIFT AND MAX ASSIST TO REPOSITION IN BED. TAKES MEDS CRUSHED IN APPLESAUCE
--- NOTE | 2019-04-24 19:17 | NUR ---
Initial Visit: Pt seen for advance directives and symptom managment. Conference with nurse, Jocelyn, and customer care assistant, Bridgette, prior to pt visit. Jocelyn reports that pt has not been sleeping well, she has not been requesting pain medication often. Pt is alert, oriented. Her family members and caregivers just left the room. They were here for her birthday and brought her cupcakes. Pt reports continued fatigue. She appears depressed. She reports that she has not been requesting pain medication because she doesn't want to be "labeled" and "have a stigma." She states pain level around 7/10 at this time. She has a CPAP machine at home, she doesn't use it all the time, but she thinks that it would help her sleep here at the hospital. She has a dry throat, she has general aches and pains - mostly in her hips. 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 She states that her pain is now better than it was prior to surgery. Instructed pt to please report pain when it increases to a 5/10 and ask nurse for pain medication. Educated on pain medications available to her. Jocelyn is present and reinforcing teaching. Pt reports moderate anxiety. She states that she takes an antidepressant to help with her anxiety. It has been effective in the past, but this current illness is causing her anxiety level to increase. Pt reports profound fatigue with the activity of the day and exhaustion from her visitors. Will follow up with pt tomorrow for pain and symptom management and to further evaluate for palliative needs. No other concerns. Call placed to Dr. Hylton for CPAP orders.
--- NOTE | 2019-04-25 01:46 | NUR ---
REPORT GIVEN TO SUMANTH STARK. PT CURRENTLY ON BEDPAN PASSING FLATUS. SHE IS ABLE TO MAKE HER NEEDS KNOWN, USES HER CALL LIGHT APPROPRIATELY.
[2019-04-25 04:55] LABS: BASOPHILS ABSOLUTE AUTO 0.12 K/mm3 (0.00-0.23); BASOPHILS PERCENT AUTO 1 % (0-2); EOSINOPHILS ABSOLUTE AUTO 0.14 K/mm3 (0.00-0.68); EOSINOPHILS PERCENT AUTO 1 % (0-6); Hematocrit 25.9 % (33.0-51.0); Hemoglobin 8.3 g/dL (11.5-16.0); IMMATURE GRAN ABSOLUTE AUTO 0.38 K/mm3 (0.00-0.10); IMMATURE GRAN PERCENT AUTO 2 % (0-1); LYMPHOCYTES ABSOLUTE AUTO 1.27 K/mm3 (0.84-5.20); LYMPHOCYTES PERCENT AUTO 8 % (21-46); MONOCYTES ABSOLUTE AUTO 2.47 K/mm3 (0.16-1.47); MONOCYTES PERCENT AUTO 15 % (4-13); Mean Corpuscular HGB 26.5 pg (26.0-34.0); Mean Corpuscular Volume 83 fL (80-100); Mean Platelet Volume 9.5 fL (9.1-12.4); NEUTROPHILS ABSOLUTE AUTO 11.91 K/mm3 (1.96-9.15); NEUTROPHILS PERCENT AUTO 73 % (41-73); NRBC ABSOLUTE 0.08 K/mm3 (0.00-0.02); NRBC Auto 0.5 /100 WBC (0.0-0.2); Platelet Count 353 K/mm3 (150-400); RDW Coefficient Variation 19.2 % (11.7-14.2); RDW Standard Deviation 55.3 fL (35.1-46.3); Red Blood Cell Count 3.13 M/mm3 (3.80-5.20); White Blood Cell Count 16.29 K/mm3 (4.00-11.30)
[2019-04-25 05:11] LABS: Anion Gap 11 mmol/L (6-16); Blood Urea Nitrogen 43 mg/dL (8-24); Bun/Creatinine Ratio 46.3 (12.0-20.0); CO2, Blood 18 mmol/L (21-32); Calcium, Blood 8.2 mg/dL (8.5-10.1); Chloride, Blood 106 mmol/L (98-108); Creatinine, Blood 0.93 mg/dL (0.40-1.00); Glomerular Filtration Rate >60 (60-); Glucose, Blood 95 mg/dL (70-99); Sodium, Blood 135 mmol/L (136-145)
--- NOTE | 2019-04-25 06:29 | NUR ---
PATIENT HAS ATTEMPTED TO HAVE A BOWEL MOVEMENT SEVERAL TIMES THIS AM ON THE BEDPAN. SHE HAS BEEN UNSUCCESSFUL, HOWEVER HAS HAD FLATUS MULTIPLE TIMES. AFTER THE LAST TIME ON THE BEDPAN, PATIENT REFUSED TO HAVE HER PERIAREA CLEANED BECAUSE SHE STATED SHE WAS WORN OUT. ORAL PAIN MEDICATION GIVEN THIS MORNING. PATIENT IS ABLE TO REPOSITION THE HEAD OF BED AND HER LOWER BODY WITH THE BED CONTROLS.
--- NOTE | 2019-04-25 16:24 | NUR ---
SHIFT SUMMARY NO ACUTE CHANGES THIS SHIFT. PT COMPLAINS OF PAIN TO LEFT AKA WITH PRESSURE OR REPOSITIONING. 1 OXYCODONE PRN. STUMP SOCK CHANGED FOR SCANT SEROUS DRAINAGE. PT HAS HAD POOR PO INTAKE TODAY DESPITE ENCOURAGEMENT. BOWEL CARE CONTINUING BUT NO BM. BOWENS PATENT WITH DARK YELLOW/ORANGE URINE. REPOSITIONING PT TOLERATES. MEPILEX DRESSING TO COCCYX. IVF TKO + ABX PER ORDERS. WAITING FOR DISCHARGE PLANNING: SNF VS HOME HEALTH. PT USES CALL LIGHT APPROPRIATELY.
--- NOTE | 2019-04-25 22:12 | NUR ---
PÉREZ REFUSED HER DOCUSATE SODIUM THIS EVENING STATING THAT THE MORNING DOSE HAD CAUSED STOMACH UPSET. SHE WAS EDUCATED ABOUT THE MEDICATION AND THE EFFECT THAT IT HAS AND ENCOURAGED TO TRY MIXING IT WITH PUDDING OR ANOTHER FOOD IN ORDER TO TOLERATE IT BETTER. SHE WAS ALSO ENCOURAGED TO INCREASE HER PO INTAKE OVERALL AND EDUCATED ABOUT THE IMPORTANCE OF GOOD NUTRITION FOR HEALING AND IMPROVING HER HEALTH. SHE DECLINED TO ANSWER QUESTIONS TO ASSESS HER LEVEL OF UNDERSTANDING OF THIS TOPIC. SHE REFUSED ANY PO INTAKE OTHER THAN A COUPLE OF SIPS OF PEPSI AT THIS TIME.
--- NOTE | 2019-04-26 04:17 | NUR ---
SHIFT SUMMARY: PÉREZ RESTED COMFORTABLY INTERMITTENTLY THROUGH THE NIGHT. SHE HAS NOT HAD A BM AND REFUSED THE DSS AND POWER PUDDING STATING THAT IT MADE HER SICK TO HER STOMACH. SHE REFUSED ALL DRINKS/SNACKS THAT WERE OFFERED TO HER EXCEPT A FEW SIPS OF PEPSI. SHE REFUSED REPOSITIONING, EXCEPT FOR VERY MINOR ADJUSTMENTS IN POSITION. SHE WAS EDUCATED ABOUT THE IMPORTANCE OF NUTRITION AND PRESSURE ULCER PREVENTION. SHE IS LYING IN BED WITH HER CALL LIGHT IN REACH. SHE IS ABLE TO USE HER CALL LIGHT APPROPRIATELY. SHE HAS AN AREA APPROX THE SIZE OF A QUARTER ON HER LEFT FOREARM FROM WHICH A BAND-AID WAS REMOVED DUE TO EXUDATE. THE AREA WAS CLEANED AND LEFT OPEN TO AIR. NO FURTHER EXUDATE WAS NOTED.
[2019-04-26 05:05] LABS: BASOPHILS ABSOLUTE AUTO 0.15 K/mm3 (0.00-0.23); BASOPHILS PERCENT AUTO 1 % (0-2); EOSINOPHILS ABSOLUTE AUTO 0.18 K/mm3 (0.00-0.68); EOSINOPHILS PERCENT AUTO 1 % (0-6); Hematocrit 25.5 % (33.0-51.0); IMMATURE GRAN ABSOLUTE AUTO 0.35 K/mm3 (0.00-0.10); IMMATURE GRAN PERCENT AUTO 2 % (0-1); LYMPHOCYTES PERCENT AUTO 7 % (21-46); MONOCYTES ABSOLUTE AUTO 2.73 K/mm3 (0.16-1.47); MONOCYTES PERCENT AUTO 14 % (4-13); Mean Corpuscular HGB 26.6 pg (26.0-34.0); Mean Corpuscular HGB Conc 31.4 g/dL (31.5-36.5); Mean Corpuscular Volume 85 fL (80-100); Mean Platelet Volume 9.9 fL (9.1-12.4); NEUTROPHILS ABSOLUTE AUTO 14.74 K/mm3 (1.96-9.15); NEUTROPHILS PERCENT AUTO 76 % (41-73); NRBC ABSOLUTE 0.06 K/mm3 (0.00-0.02); NRBC Auto 0.3 /100 WBC (0.0-0.2); Platelet Count 369 K/mm3 (150-400); RDW Coefficient Variation 19.9 % (11.7-14.2); Red Blood Cell Count 3.01 M/mm3 (3.80-5.20); White Blood Cell Count 19.45 K/mm3 (4.00-11.30)
[2019-04-26 05:29] LABS: Anion Gap 11 mmol/L (6-16); Blood Urea Nitrogen 36 mg/dL (8-24); Bun/Creatinine Ratio 47.2 (12.0-20.0); CO2, Blood 18 mmol/L (21-32); Calcium, Blood 7.7 mg/dL (8.5-10.1); Chloride, Blood 108 mmol/L (98-108); Creatinine, Blood 0.76 mg/dL (0.40-1.00); Glomerular Filtration Rate >60 (60-); Glucose, Blood 95 mg/dL (70-99); Potassium, Blood 3.9 mmol/L (3.5-5.5); Sodium, Blood 137 mmol/L (136-145)
--- NOTE | 2019-04-26 13:49 | NUR ---
PHYSICAL THERAPY JUST FINISHED WITH PT AND IS RECOMMENDING SNF. PT PREFERS [facility]. DR. HANDLEY NOTIFIED. PT ALSO REPORTS FEELING LIKE SHE HAS LOW BLOOD SUGAR. CBG 99 AND PT CURRENTLY EATING SOME PEACHES.
--- NOTE | 2019-04-26 16:20 | NUR ---
SHIFT SUMMARY NO ACUTE CHANGES TODAY. 1 OXYCODONE FOR PAIN PRN. LEFT STUMP SOCK AND DRESSING REMAINS CDI. IV IS SL. VSS. PHYSICAL THERAPY RECOMMENDING SNF AT DISCHARGE.
[2019-04-27 04:12] LABS: BASOPHILS PERCENT AUTO 1 % (0-2); EOSINOPHILS ABSOLUTE AUTO 0.13 K/mm3 (0.00-0.68); EOSINOPHILS PERCENT AUTO 1 % (0-6); Hematocrit 26.8 % (33.0-51.0); Hemoglobin 8.3 g/dL (11.5-16.0); IMMATURE GRAN ABSOLUTE AUTO 0.33 K/mm3 (0.00-0.10); IMMATURE GRAN PERCENT AUTO 2 % (0-1); LYMPHOCYTES ABSOLUTE AUTO 1.39 K/mm3 (0.84-5.20); LYMPHOCYTES PERCENT AUTO 7 % (21-46); MONOCYTES PERCENT AUTO 12 % (4-13); Mean Corpuscular HGB 26.7 pg (26.0-34.0); Mean Corpuscular Volume 86 fL (80-100); Mean Platelet Volume 9.8 fL (9.1-12.4); NEUTROPHILS PERCENT AUTO 79 % (41-73); NRBC ABSOLUTE 0.04 K/mm3 (0.00-0.02); NRBC Auto 0.2 /100 WBC (0.0-0.2); Platelet Count 403 K/mm3 (150-400); RDW Standard Deviation 61.1 fL (35.1-46.3); Red Blood Cell Count 3.11 M/mm3 (3.80-5.20); White Blood Cell Count 20.85 K/mm3 (4.00-11.30)
[2019-04-27 04:29] LABS: Anion Gap 11 mmol/L (6-16); Blood Urea Nitrogen 32 mg/dL (8-24); Bun/Creatinine Ratio 41.3 (12.0-20.0); CO2, Blood 17 mmol/L (21-32); Calcium, Blood 8.2 mg/dL (8.5-10.1); Chloride, Blood 106 mmol/L (98-108); Creatinine, Blood 0.77 mg/dL (0.40-1.00); Glomerular Filtration Rate >60 (60-); Glucose, Blood 97 mg/dL (70-99); Potassium, Blood 3.9 mmol/L (3.5-5.5); Sodium, Blood 134 mmol/L (136-145)
--- NOTE | 2019-04-27 08:06 | NUR ---
SHIFT SUMMARY: NO ACUTE CHANGES OVERNIGHT, VSS. SHE DID HAVE TWO BOWEL MOVEMENTS THIS SHIFT. SHE CONTINUES TO HAVE VERY POOR ORAL AND INTAKE AND WAS ENCOURAGED AND EDUCATED ON THE IMPORTANCE OF NUTRITION. BOWENS IN PLACE DRAINING PANKAJ URINE. MEPILEX CHANGED ON HER COCCYX. SHE HAS TAKEN 10 MG OF OXYCONTIN FOR PAIN THIS SHIFT. SHE IS ABLE TO MAKE HER NEEDS KNOWN. IV SALINE LOCKED.
--- NOTE | 2019-04-27 14:06 | NUR ---
Pt is resting quietly in bed, resp even and not labored. Reviewed notes and chart. Pt is consistently having poor appetite, appears very depressed to nursing and to physical therapy. WBC increasing over the last couple days. PPS 20% KPS 20% Albumin 2.8 on 04/15/19 Pt would be appropriate for hospice services at this time. Recommend increasing Celexa or introducing another medication to support mood and appetite. She is discharging to rehab today with the hope that she will improve bed mobility and be able to sit up. Fax palliative note to Dr. Shah's office for review and update provider.
--- NOTE | 2019-04-27 16:40 | NUR ---
SUMMARY: NO CHANGE TODAY. VSS, A/0. PT CONTINUES TO HAVE SMALL BM'S, DIFFICULT TO TURN AND CHANGE, PT REQUIRES 2-[address] HEAD [address] UNABLE TO COMPLETE DUE TO PT SOB WITH LYING FLAT, DR. DAVIS MADE AWARE. NO NEW ORDER. PLAN IS FOR POSSIBLE HOME HEALTH OR SNF TOMORROW AFTER PHYSICAL THERAPY ASSESS. PT AND FAMILY MADE AWARE OF PLAN. WILL PASS REPORT TO YANET JUILO
--- NOTE | 2019-04-28 06:24 | NUR ---
SHIFT SUMMARY HAS RESTED OFF AND ON THROUGHOUT SHIFT. HAD 2 BM'S. REFUSED HS DULCOLAX, STATES THAT THEY ALWAYS GIVE HER DIARRHEA. MEDICATED FOR PAIN X2. DRESSING TO COCCYX CHANGED. GOWN AND LINEN CHANGE COMPLETED. TOLERATING MEDS WITH APPLE SAUCE OR PUDDING. REPOSITIONED FOR COMFORT Q 2HRS AND PRN. DENIES FURTHER NEEDS AT THIS TIME. SAFETY MEASURES IN PLACE. WILL GIVE HAND OFF TO ONCOMING SHIFT USING SBAR.
--- NOTE | 2019-04-28 10:53 | NUR ---
SPOKE WITH JAMEEL, PT'S CAREGIVER AT THIS TIME TO UPDATE HER ON PLAN FOR DISCHARGE HOME WITH HOME HEALTH. JAMEEL VERBALIZED UNDERSTANDING
--- NOTE | 2019-04-28 15:19 | NUR ---
PICTURES TAKEN OF PT L STUMP SURGICAL SITE AND COCCYX. PICTURES PLACED IN PAPER CHART.
[2019-04-28] MEDS ORDERED: MIRT15 PO (15:54)
--- NOTE | 2019-04-28 15:58 | NUR ---
CALL FROM TRANSPORT AT 1555, WILL BE HERE TO GET PT AT ABOUT 1615. PREPARING PT FOR DC AT THIS TIME.
--- NOTE | 2019-04-28 16:15 | NUR ---
MED REC FAXED TO [employer] AT THIS TIME, VERIFICATION OF SENT PRINTED. PT DOES NOT NEED NARCOTIC SCRIPT AT THIS TIME.
--- NOTE | 2019-04-28 18:09 | NUR ---
DISCHARGE: PACKET PRINTED AND INSTRUCTIONS GIVEN. PT SENT WITH AN EXTRA STUMP SOCK. EMS TRANSPORT ARRIVED AT ABOUT 1635, PT LEFT UNIT VIA GURNEY WITH EMS AT ABOUT 1640.
== END 2019-04-28 17:07 | disposition home health service (06) | DRG 239 ==
LOC: ER 19:48 → ICUW 04-16 00:28 → MEDS 04-16 00:28 → PCU 04-16 00:28 → MEDS 04-16 00:37 → PCU 04-16 18:14 → MEDS 04-17 12:09 → ICUW 04-20 13:30 → SURS 04-21 22:32
PROVIDERS: Emergency Medicine; Internal Medicine; Orthopaedic Surgery; ADMIT Hospitalist
PROC: 0Y6J0Z1 Detachment at Left Lower Leg, High, Open Approach (ICD-10-PCS; principal; 2019-04-20 13:30)
PROC: 30233N1 Transfusion of Nonautologous Red Blood Cells into Peripheral Vein, Percutaneous Approach (ICD-10-PCS; 2019-04-25)
DX: E11.52 Type 2 diabetes mellitus with diabetic peripheral angiopathy with gangrene (principal); J69.0 Pneumonitis due to inhalation of food and vomit; I96 Gangrene, not elsewhere classified; D62 Acute posthemorrhagic anemia; I50.22 Chronic systolic (congestive) heart failure; I69.351 Hemiplegia and hemiparesis following cerebral infarction affecting right dominant side; I13.0 Hypertensive heart and chronic kidney disease with heart failure and stage 1 through stage 4 chronic kidney disease, or unspecified chronic kidney disease; E87.1 Hypo-osmolality and hyponatremia; N17.9 Acute kidney failure, unspecified; E44.0 Moderate protein-calorie malnutrition; Z79.4 Long term (current) use of insulin; I11.0 Hypertensive heart disease with heart failure; E78.5 Hyperlipidemia, unspecified; I25.10 Atherosclerotic heart disease of native coronary artery without angina pectoris; Z95.1 Presence of aortocoronary bypass graft; E11.22 Type 2 diabetes mellitus with diabetic chronic kidney disease; N18.3 Chronic kidney disease, stage 3 (moderate); K21.9 Gastro-esophageal reflux disease without esophagitis; J44.9 Chronic obstructive pulmonary disease, unspecified; E11.65 Type 2 diabetes mellitus with hyperglycemia; E66.01 Morbid (severe) obesity due to excess calories; Z86.718 Personal history of other venous thrombosis and embolism; Z66 Do not resuscitate; I95.9 Hypotension, unspecified; R13.10 Dysphagia, unspecified; K59.00 Constipation, unspecified
CPT/HCPCS: 36415; 36430; 37221; 37224; 37228; 37232; 51702; 71045; 73700; 75625; 75716; 75774; 76857; 80048; 80053; 81001; 82947; 83605; 84134; 84145; 85025; 85027; 85610; 86850; 86900; 86901; 86920; 87040; 87086; 87106; 88307; 92526; 92610; 94640; 94760; 94762; 96361-59; 96365-59; 96375-59; 96376-59; 97110; 97162; 97166; 97530; 99152; 99153; 99285-25; A9270; C1725; C1760; C1769; C1876; C1887; C1894; C2623; J0696; J1170; J1200; J1644; J1720; J2250; J2370; J2405; J2543; J2704; J2710; J3010; J3370; J7030; J7040; J7050; J7070; J7120; P9016; Q9967

== ENCOUNTER 2019-05-04 16:14 | Inpatient (IN) | payer OTHER ==
[~2019-05-04] VITALS: Ht 160 cm; Wt 107.4 kg
[~2019-05-04 16:14] MED LIST changes: +Bumetanide2 MG PO; +CALC.25 PO; +FERSU300 PO; +FLUC150A PO; +HYDROCODONE-AC1 EAC1 PO; +JARDIANCE10 MG PO; +MIRALAX17 G1 PO; +MIRT15 PO; +SPIRONOLACTONE25 MG PO; +TRESIBA FL100 UNIT/1 SC; +VITAMIN D325 MCG PO; +VOLTAREN100 GM TOP
[2019-05-04 17:50] LABS: BASOPHILS ABSOLUTE AUTO 0.13 K/mm3 (0.00-0.23); BASOPHILS PERCENT AUTO 1 % (0-2); EOSINOPHILS ABSOLUTE AUTO 0.44 K/mm3 (0.00-0.68); EOSINOPHILS PERCENT AUTO 3 % (0-6); Hemoglobin 10.2 g/dL (11.5-16.0); IMMATURE GRAN ABSOLUTE AUTO 0.14 K/mm3 (0.00-0.10); IMMATURE GRAN PERCENT AUTO 1 % (0-1); LYMPHOCYTES ABSOLUTE AUTO 1.04 K/mm3 (0.84-5.20); LYMPHOCYTES PERCENT AUTO 7 % (21-46); MONOCYTES ABSOLUTE AUTO 1.34 K/mm3 (0.16-1.47); MONOCYTES PERCENT AUTO 10 % (4-13); Mean Corpuscular HGB 27.1 pg (26.0-34.0); Mean Platelet Volume 10.6 fL (9.1-12.4); NEUTROPHILS ABSOLUTE AUTO 11.01 K/mm3 (1.96-9.15); NEUTROPHILS PERCENT AUTO 78 % (41-73); NRBC ABSOLUTE 0.02 K/mm3 (0.00-0.02); NRBC Auto 0.1 /100 WBC (0.0-0.2); Platelet Count 405 K/mm3 (150-400); RDW Coefficient Variation 24.7 % (11.7-14.2); RDW Standard Deviation 81.9 fL (35.1-46.3); Red Blood Cell Count 3.76 M/mm3 (3.80-5.20)
[2019-05-04 17:52] LABS: Mean Corpuscular Volume 90 fL (80-100)
[2019-05-04 18:05] LABS: Alanine Aminotransfer (ALT/SGP 14 U/L (12-78); Albumin, Blood 2.3 g/dL (3.4-5.0); Albumin/Globulin Ratio 0.5 (0.8-1.8); Alk Phos 246 U/L (50-136); Anion Gap 11 mmol/L (6-16); Aspartate Aminotrans (AST/SGOT 27 U/L (12-37); Blood Urea Nitrogen 28 mg/dL (8-24); Bun/Creatinine Ratio 39.8 (12.0-20.0); CO2, Blood 22 mmol/L (21-32); Chloride, Blood 104 mmol/L (98-108); Globulin, Blood 4.5 g/dL (2.2-4.0); Glomerular Filtration Rate >60 (60-); Glucose, Blood 140 mg/dL (70-99); Magnesium, Blood 1.8 mg/dL (1.6-2.4); Potassium, Blood 3.8 mmol/L (3.5-5.5); Sodium, Blood 137 mmol/L (136-145); Total Protein, Blood 6.8 g/dL (6.4-8.2)
[2019-05-04] MEDS ORDERED: SPIRONOLACTONE25 MG PO (19:04)
[2019-05-04] MEDS ORDERED: VITAMIN D325 MCG PO (19:05)
[2019-05-04 21:43] LABS: Source, Urine Catheter
[2019-05-04 21:46] LABS: Appearance, Urine Hazy (Clear); Bilirubin, Urine Neg (Neg); Blood, Urine 1+ (Neg); Color, Urine Yellow (P-Yellow); Glucose Qualitative, Urine 3+ (Neg); Ketones, Urine 1+ (Neg); Leukocyte Esterase, Urine 2+ (Neg); Nitrite, Urine Neg (Neg); Protein, Urine Neg (Neg); Specific Gravity, Urine 1.015 (1.003-1.022); Urobilinogen, Urine NORM (Normal)
[2019-05-04 21:55] LABS: Bacteria Few /hpf; Squamous Epithelial Cells Few /hpf (Few); Yeast/Fungi Urine Many /hpf
--- NOTE | 2019-05-05 04:30 | NUR ---
TREE TAPPING LABORER SUMMARY NEW ADMIT FROM THE ED JULIA. PT ADMITTED WITH INFECTED SURGICAL WOUND ON LEFT LEG S/P AKA IN MARCH. WOUND STILL HAS BERHANE AND A SMALL SECTION THAT LOOKS DEHISCED, PHOTOS PLACED IN CHART. STUMP CLEANED WITH WOUND SPRAY AND AN ABD PAD PLACED. PT ALSO HAS REDDENED TARAN AREA AND SMALL PRESSURE SORES ON COCCYX. SORE IS NOT OPEN BUT RED. PT HAS CHRONIC BOWENS CATH THAT WAS CHANGED WHEN PT ARRIVED TO THE FLOOR. PT HAS ORTHO CONSULT WITH DR SERRA LATER TODAY. PT STATES SHE HAS NOT BEEN EATING MUCH SOLID FOOD SINCE HER SURGERY IN MARCH. PT USED BED DOWNING SEVERAL TIMES, STOOL WAS COMPLETELY CLEAR AND GEL LIKE. PT AAOX4, PLEASANT. VSS, WILL CONTINUE TO MONITOR.
[2019-05-05 04:44] LABS: BASOPHILS ABSOLUTE AUTO 0.09 K/mm3 (0.00-0.23); BASOPHILS PERCENT AUTO 1 % (0-2); EOSINOPHILS ABSOLUTE AUTO 0.41 K/mm3 (0.00-0.68); EOSINOPHILS PERCENT AUTO 4 % (0-6); Hematocrit 32.1 % (33.0-51.0); Hemoglobin 9.9 g/dL (11.5-16.0); IMMATURE GRAN ABSOLUTE AUTO 0.11 K/mm3 (0.00-0.10); IMMATURE GRAN PERCENT AUTO 1 % (0-1); LYMPHOCYTES ABSOLUTE AUTO 1.08 K/mm3 (0.84-5.20); LYMPHOCYTES PERCENT AUTO 9 % (21-46); MONOCYTES ABSOLUTE AUTO 1.28 K/mm3 (0.16-1.47); MONOCYTES PERCENT AUTO 11 % (4-13); Mean Corpuscular HGB 27.8 pg (26.0-34.0); Mean Corpuscular HGB Conc 30.8 g/dL (31.5-36.5); Mean Corpuscular Volume 90 fL (80-100); Mean Platelet Volume 10.6 fL (9.1-12.4); NEUTROPHILS ABSOLUTE AUTO 8.79 K/mm3 (1.96-9.15); NEUTROPHILS PERCENT AUTO 75 % (41-73); Platelet Count 367 K/mm3 (150-400); RDW Coefficient Variation 24.5 % (11.7-14.2); RDW Standard Deviation 80.8 fL (35.1-46.3); Red Blood Cell Count 3.56 M/mm3 (3.80-5.20); White Blood Cell Count 11.76 K/mm3 (4.00-11.30)
[2019-05-05 05:01] LABS: Alanine Aminotransfer (ALT/SGP 8 U/L (12-78); Albumin, Blood 2.1 g/dL (3.4-5.0); Albumin/Globulin Ratio 0.5 (0.8-1.8); Alk Phos 304 U/L (50-136); Anion Gap 9 mmol/L (6-16); Aspartate Aminotrans (AST/SGOT 22 U/L (12-37); Blood Urea Nitrogen 26 mg/dL (8-24); Bun/Creatinine Ratio 39.3 (12.0-20.0); CO2, Blood 21 mmol/L (21-32); Calcium, Blood 7.9 mg/dL (8.5-10.1); Chloride, Blood 108 mmol/L (98-108); Creatinine, Blood 0.66 mg/dL (0.40-1.00); Globulin, Blood 3.9 g/dL (2.2-4.0); Glomerular Filtration Rate >60 (60-); Glucose, Blood 109 mg/dL (70-99); Potassium, Blood 3.1 mmol/L (3.5-5.5); Sodium, Blood 138 mmol/L (136-145)
--- NOTE | 2019-05-05 10:39 | NUR ---
POSITIVE BLOOD CX REPORTED TO DR. RUIZ RE POSITIVE BLOOD CX, ORDERS RECEIVED AND ENTERED INTO EMAR.
--- NOTE | 2019-05-05 13:03 | NUR ---
Heparin Per Dr. Cunningham, heparin to be held for possible surgical procedure.
--- NOTE | 2019-05-05 15:01 | NUR ---
Patient gave permission for care 05/05/19 @ 5026. Patient alert and oriented x3. Affect was drowsy but pleasant.
--- NOTE | 2019-05-05 17:23 | NUR ---
Inital spiritual care note: Per friend request, I visited Myles to offer prayer and spiritual encouragement. She was alone in room and appeared emotionally withdrawn. she said very little, but agreed to let me pray for her. She admits to feeling frustrated with readmission and slow healing. She did not appear to want conversation--using one word answers and not meeting my eyes. I affirmed God's love and attention. Advised I would remain available.
--- NOTE | 2019-05-05 17:36 | NUR ---
Initial Visit: Pt with past medical history of CHF, diabetes, hypertension, CVA, CAD, COPD, obesity, CKD, GERD, right AKA and recent left BKA is readmitted to the hospital for infection of left stump. Home health nursing sent pt to the hospital after discovery of increased redness and purulent drainage of left stump. The recommendation of surgeon is for pt to have further reduction of the stump with amputation. Contacted by human services care specialist to see pt to determine if pt desires this intervention, as pt has agreed to hospice services through [facility]. Pt is alert, oriented. She reports she DOES desire the surgery in order to prolong her life. She has been told that she would from the infection if she does not undergo surgery. Discussed further care. She had agreed to hospice services, but she does not want to and does not feel that she is at end of life. She states that she was going to do hospice because she didn't have any other options. She reports that she isn't able to get to the doctor's office for appointments because she cannot get into a wheelchair. She does not know of any other way that she can be transported to the doctors. She also thought hospice would be able to manage her pain. Discussed benefits of hospice services. Instructed that she does qualify and the things that she has been told are correct. Nurses can report to physicians and get orders from them. Instructed on hospice philosophy and improvement of quality of life through symptom managment. She will consider this further. She states that she does want the surgery to take care of her infection. Pt has a friend present, Pallavi. Pallavi reports that pt feels as though she has no other choices left. Pallavi used to be pt's caregiver, but due to her own health concerns, she is unable to be a caregiver. She states that she is the pt's hse advisor now. Pallavi requests enterer, Shelly, to visit the pt. Pallavi knows Shelly from other family members being in the hospital and believes that Shelly will bring Dorathy comfort and peace. Dorathy is agreeable to enterer visits. No other concerns at this time. Updated nursing. Will follow up with care managment tomorrow to report on conversations with pt regarding hospice vs home health.
--- NOTE | 2019-05-05 17:53 | NUR ---
PRBC orders PER DR. SERRA, TYPE AND SCREEN ORDERED ALONG WITH 1 UNIT PRBC.
--- NOTE | 2019-05-05 19:23 | NUR ---
Shift Summary A/Ox3. Pleasant and cooperative with care, pt sometimes has mumbling speech and appears to be depressed and withdrawn. Wound dressing changed today, moderate purulent drainage. Heparin has been held. Medicated for pain x 1 with good results. Pt is to be NPO after midnight for possible surgical stump resection tomorrow, type and screen ordered. Pt would like to have Dr. Kaiser consulted and be on the case for comfort. Per Dr. Cunningham, he will put in orders for the consult. Yeung intact and draining. 2 person to turn and change. No other concerns.
--- NOTE | 2019-05-06 05:37 | NUR ---
SHIFT SUMMARY PT ADMITTED FOR SURGICAL WOUND INFECTION. DNR CODE. SURGICAL PROCEDURE SET TO BE PERFORMED TODAY. CONTACT PRECAUTIONS FOR CARBAPENEM RESISTANCE-URINE, MRSA IN WOUND/NARES. GRAM NEGATIVE BACTEREMIA. PT HAS BEEN NPO SINCE MIDNIGHT. USES BEDPAN. BOWENS IN PLACE, PATENT AND DRAINING. ACHS, RA, A&O X3. SHE HAS A RT AKA AND A LFT BKA. NORCO IN EMAR FOR PAIN. IV ANTIBIOTICS SCHEDULED. HX: DM2, COPD, CHF, CVA (RT SIDE DEFICITS), COPD, CAD - POST CABG, CKD (SEES LEESA). GENERALIZED EDEMA 4+
[2019-05-06 06:12] LABS: BASOPHILS ABSOLUTE AUTO 0.14 K/mm3 (0.00-0.23); BASOPHILS PERCENT AUTO 1 % (0-2); EOSINOPHILS ABSOLUTE AUTO 0.39 K/mm3 (0.00-0.68); EOSINOPHILS PERCENT AUTO 4 % (0-6); Hematocrit 28.7 % (33.0-51.0); Hemoglobin 8.8 g/dL (11.5-16.0); IMMATURE GRAN PERCENT AUTO 1 % (0-1); LYMPHOCYTES ABSOLUTE AUTO 1.31 K/mm3 (0.84-5.20); LYMPHOCYTES PERCENT AUTO 13 % (21-46); MONOCYTES ABSOLUTE AUTO 1.18 K/mm3 (0.16-1.47); MONOCYTES PERCENT AUTO 12 % (4-13); Mean Corpuscular HGB 27.2 pg (26.0-34.0); Mean Corpuscular HGB Conc 30.7 g/dL (31.5-36.5); Mean Corpuscular Volume 89 fL (80-100); Mean Platelet Volume 10.2 fL (9.1-12.4); NEUTROPHILS ABSOLUTE AUTO 7.11 K/mm3 (1.96-9.15); NEUTROPHILS PERCENT AUTO 70 % (41-73); Platelet Count 347 K/mm3 (150-400); RDW Coefficient Variation 25.1 % (11.7-14.2); RDW Standard Deviation 80.2 fL (35.1-46.3); Red Blood Cell Count 3.23 M/mm3 (3.80-5.20); White Blood Cell Count 10.23 K/mm3 (4.00-11.30)
[2019-05-06 06:26] LABS: International Normalized Ratio 1.24; Prothrombin Time Results 13.1 Sec (9.7-11.5)
[2019-05-06 06:31] LABS: Anion Gap 10 mmol/L (6-16); Blood Urea Nitrogen 26 mg/dL (8-24); Bun/Creatinine Ratio 40.4 (12.0-20.0); CO2, Blood 20 mmol/L (21-32); Calcium, Blood 7.3 mg/dL (8.5-10.1); Chloride, Blood 109 mmol/L (98-108); Creatinine, Blood 0.64 mg/dL (0.40-1.00); Glomerular Filtration Rate >60 (60-); Glucose, Blood 108 mg/dL (70-99); Potassium, Blood 3.4 mmol/L (3.5-5.5); Sodium, Blood 139 mmol/L (136-145)
[2019-05-06 06:33] LABS: Vancomycin, Trough 18.9 ug/mL (5.0-10.0)
--- NOTE | 2019-05-06 18:04 | NUR ---
Routine spiritual care note: Myles was in much better spirits this evening. She reports hope that her upcoming surgery will provide healing. She responded well to prayer and gentle spiritual direction. I will remain available.
--- NOTE | 2019-05-06 19:28 | NUR ---
SHIFT SUMMARY: PT A&O X3; HX CVA c R SIDE DEFICITS. MORNING MEDS HELD FOR NPO R/T PLANNED SURGERY; SURGERY CHANGED TO 05/07; PT TO BE NPO @ MIDNIGHT. IV ABX & FLUIDS CONTINUING. REPORT GIVEN TO ONCOMING RN.
--- NOTE | 2019-05-06 22:20 | NUR ---
CALLED NEUROLOGIST NOTICED ORAL BUMEX WAS HELD DUE TO PT'S NPO STATUS FOR A PROPOSED SURGICAL PROCEDURE THAT DID NOT TAKE PLACE. NEUROLOGIST AGREED I COULD ADMINISTER ORAL BUMEX NOW.
--- NOTE | 2019-05-06 22:51 | NUR ---
CALLED CEMENT PRODUCTION PLANT OPERATOR INFORMED HER ABOUT PT'S FINE CRACKLES. BUT PT DENIES SOB SINCE I GAVE THE BUMEX. ASKED CEMENT PRODUCTION PLANT OPERATOR ABOUT MORNING DOSE OF BUMEX ( PT WILL BE COMPLETELY NPO). CEMENT PRODUCTION PLANT OPERATOR ORDERS IV FLUIDS TO CONTINUE INFUSING @ 75 ML/HR, I SHOULD ADMINISTER BUMEX @ 0700 HRS - AND THE PT SHOULD BE SAFE FOR THE 1330 HRS PLANNED PROCEDURE.
--- NOTE | 2019-05-07 04:34 | NUR ---
SHIFT SUMMARY ADMITTED FOR SURGICAL WOUND INFECTION. DNR CODE. LFT AKA PLANNED FOR AROUND 1330 HRS TODAY. I AUSCULTATED FINE CRACKLES IN LUNGS. DISCOVERED BUMEX WAS HELD TODAY DUE TO NPO STATUS (PLAN WAS FOR SURGICAL PROCEDURE YESTERDAY- WAS NOT PERFORMED). I CALLED SALVAGE MEND WORKER AND GOT UNSCHEDULED BUMEX ORDER AND I AM TO GIVE HER MORNING DOSE OF BUMEX TODAY AT 0713-2964 HRS. PT HAS BEEN NPO OTHERWISE SINCE MIDNIGHT. NS IS INFUSING @ 75 ML/HR. NEW ORDER FOR DAILY BED WEIGHTS WAS ENTERED THIS SHIFT. RA, ACHS, LOW SLIDING SCALE HUMALOG, WAS PREVIOUSLY ADA DIET. 3+ TO 4+ EDEMA THROUGHOUT BODY. CHRONIC BOWENS IN PLACE, ORDERS HAVE BEEN ENTERED FOR BOWENS THIS SHIFT. PT CURRENTLY HAS RT AKA AND LEFT BKA. 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 HX: CHF (ELLOQUIS HELD), CVA (RT SIDE DEFICIT), CKD3, DM2, COPD, CAD (POST CABG), DEPRESSION, PVD.
[2019-05-07 05:04] LABS: BASOPHILS ABSOLUTE AUTO 0.12 K/mm3 (0.00-0.23); BASOPHILS PERCENT AUTO 1 % (0-2); EOSINOPHILS ABSOLUTE AUTO 0.27 K/mm3 (0.00-0.68); EOSINOPHILS PERCENT AUTO 3 % (0-6); Hematocrit 30.2 % (33.0-51.0); Hemoglobin 9.1 g/dL (11.5-16.0); IMMATURE GRAN ABSOLUTE AUTO 0.06 K/mm3 (0.00-0.10); IMMATURE GRAN PERCENT AUTO 1 % (0-1); LYMPHOCYTES ABSOLUTE AUTO 1.17 K/mm3 (0.84-5.20); LYMPHOCYTES PERCENT AUTO 12 % (21-46); MONOCYTES ABSOLUTE AUTO 1.02 K/mm3 (0.16-1.47); MONOCYTES PERCENT AUTO 11 % (4-13); Mean Corpuscular HGB 27.3 pg (26.0-34.0); Mean Corpuscular HGB Conc 30.1 g/dL (31.5-36.5); Mean Corpuscular Volume 91 fL (80-100); Mean Platelet Volume 10.2 fL (9.1-12.4); NEUTROPHILS ABSOLUTE AUTO 6.79 K/mm3 (1.96-9.15); NEUTROPHILS PERCENT AUTO 72 % (41-73); Platelet Count 333 K/mm3 (150-400); RDW Coefficient Variation 25.7 % (11.7-14.2); RDW Standard Deviation 85.2 fL (35.1-46.3); Red Blood Cell Count 3.33 M/mm3 (3.80-5.20); White Blood Cell Count 9.43 K/mm3 (4.00-11.30)
[2019-05-07 05:44] LABS: Anion Gap 10 mmol/L (6-16); Blood Urea Nitrogen 20 mg/dL (8-24); Bun/Creatinine Ratio 31.7 (12.0-20.0); CO2, Blood 19 mmol/L (21-32); Calcium, Blood 7.7 mg/dL (8.5-10.1); Chloride, Blood 110 mmol/L (98-108); Creatinine, Blood 0.63 mg/dL (0.40-1.00); Glomerular Filtration Rate >60 (60-); Glucose, Blood 99 mg/dL (70-99); Potassium, Blood 3.3 mmol/L (3.5-5.5); Sodium, Blood 139 mmol/L (136-145)
--- NOTE | 2019-05-07 14:06 | NUR ---
TO O.R. POTASSIUM STILL RUNNING. ANTIBIOTIC SCHEDULED FOR 1200 GIVEN TO RN.
[2019-05-07] MEDS ORDERED: NYSTRITC TOP (14:09)
[2019-05-07] MEDS ORDERED: SENNA LAXATIVE8.6 MG PO (14:11)
[2019-05-07] MEDS ORDERED: ALBU90OI INH (14:13)
--- NOTE | 2019-05-07 14:13 | NUR ---
PT BROUGHT TO [facility] VIA [facility] FLOOR BED. History, Chart, Medications and Allergies reviewed before start of procedure.Patient confirms NPO status and agrees with scheduled surgery. UPPER EXTREMITIES LIMITED ROM/MOBILITY. RIGHT EXTREMITY EDEMA PRESENT.
[2019-05-07] MEDS ORDERED: DOCU100 PO (14:14)
[2019-05-07] MEDS ORDERED: CALC.25 PO (14:15)
--- NOTE | 2019-05-07 17:18 | NUR ---
PATIENT GAVE RECORDS MANAGEMENT CLERK PERMISSION TO PROVIDE CARE AND OBSERVE SURGERY ON 05/07/2019.
--- NOTE | 2019-05-07 18:12 | NUR ---
LEFT VOICE MAIL FOR FOR PAIN MEDS IV.
--- NOTE | 2019-05-07 18:43 | NUR ---
ALERT. IV PATENT. BACK FROM OR. DROWSEY, BUT C/O CONSTANT PAIN. MEDICATED IV AND P.O. WOUND VAC IN PLACE AND DRAINING RED FLUID. WCTM
[2019-05-08 05:46] LABS: BASOPHILS ABSOLUTE AUTO 0.08 K/mm3 (0.00-0.23); BASOPHILS PERCENT AUTO 1 % (0-2); EOSINOPHILS ABSOLUTE AUTO 0.04 K/mm3 (0.00-0.68); EOSINOPHILS PERCENT AUTO 0 % (0-6); Hematocrit 29.7 % (33.0-51.0); IMMATURE GRAN ABSOLUTE AUTO 0.13 K/mm3 (0.00-0.10); IMMATURE GRAN PERCENT AUTO 1 % (0-1); LYMPHOCYTES PERCENT AUTO 9 % (21-46); MONOCYTES ABSOLUTE AUTO 1.28 K/mm3 (0.16-1.47); MONOCYTES PERCENT AUTO 10 % (4-13); Mean Corpuscular HGB 27.9 pg (26.0-34.0); Mean Corpuscular HGB Conc 30.3 g/dL (31.5-36.5); Mean Corpuscular Volume 92 fL (80-100); Mean Platelet Volume 10.2 fL (9.1-12.4); NEUTROPHILS ABSOLUTE AUTO 10.78 K/mm3 (1.96-9.15); NEUTROPHILS PERCENT AUTO 80 % (41-73); NRBC ABSOLUTE 0.02 K/mm3 (0.00-0.02); NRBC Auto 0.1 /100 WBC (0.0-0.2); Platelet Count 319 K/mm3 (150-400); RDW Coefficient Variation 26.2 % (11.7-14.2); Red Blood Cell Count 3.23 M/mm3 (3.80-5.20); White Blood Cell Count 13.51 K/mm3 (4.00-11.30)
[2019-05-08 06:02] LABS: Anion Gap 11 mmol/L (6-16); Blood Urea Nitrogen 21 mg/dL (8-24); Bun/Creatinine Ratio 34.1 (12.0-20.0); CO2, Blood 19 mmol/L (21-32); Calcium, Blood 7.7 mg/dL (8.5-10.1); Chloride, Blood 110 mmol/L (98-108); Creatinine, Blood 0.62 mg/dL (0.40-1.00); Glomerular Filtration Rate >60 (60-); Glucose, Blood 106 mg/dL (70-99); Phosphorus, Blood 2.1 mg/dL (2.5-4.9); Potassium, Blood 3.7 mmol/L (3.5-5.5); Sodium, Blood 140 mmol/L (136-145)
--- NOTE | 2019-05-08 07:14 | NUR ---
STS CONSTANT PAIN. ADJUSTED IN BED. SEEMS TO FALL ASLEEP EASILY
--- NOTE | 2019-05-08 07:18 | NUR ---
05/08/19 0630 PT REPOSITIONED SIDE TO SIDE WITH PILLOWS. PREFERS TO STAY ON RT SIDE BUT STRESSED IMPORTANCE OF ROTATING TO PREVENT SKIN BREAKDOWN. ALSO HAS SOB WHENEVER SHE IS LAID FLAT FOR REPOSITIONING. O2 REMAINS AT 2LPM VIA N/C. HOB ELEVATED 45 DEGREES OR HIGHER FOR COMFORT/BREATHING. VITALS REMAIN STABLE. BOWENS PATENT WITH CLEAR, YELLOW URINE.
--- NOTE | 2019-05-08 07:24 | NUR ---
05/08/19 0640 AWAKE AND WATCHING TV. CHEERFUL AND DENIES ANY PROBLEMS AT THIS TIME. VITALS STABLE. SELF TURNS AND GETS UP TO BR INDEPENDENTLY. MEDICATED ONCE FOR ABD. PAIN.
--- NOTE | 2019-05-08 07:29 | NUR ---
05/08/19 OMIT 0640 NOTE. ENTERED ON WRONG PT.
--- NOTE | 2019-05-08 09:30 | NUR ---
05/08/19 0930 [place] VERIFICATIONS: EDIT CHART.
--- NOTE | 2019-05-08 12:00 | NUR ---
Attended rapid response. Pt labs being drawn, witnessed seizure by Dr. Lazo. Medications given. Nursing supervisor curing room called friend to notify. Will remain available for needs, symptom managment, additional teaching if necessary.
--- NOTE | 2019-05-08 12:27 | NUR ---
GUILLOTINE TRIMMER called, bridget contacted regarding GUILLOTINE TRIMMER and notified of condition change.
--- NOTE | 2019-05-08 12:29 | NUR ---
AT 1201 ANTIBIOTIC HUNG AND PATIENT REQUEST WHEN SHE CAN HAVE PAIN MEDS. ADVISED WILL BE BACK WITH MEDS. IN MEANTIME WENT IN TO SEE PATIENT AND WAS TALKING TO PATIENT AND WHEN SHE STATED SHE TURNED HER HEAD, PATIENT STARTED SHAKING AND HER EYES ROLLED BACK IN HER HEAD. RN CAME IN ROOM AND RAPID CALLED. V.S. TAKEN. NOT RESPONSIVE TO STERNAL RUB.MEDS GIVEN, NONREBREATHER ON.PATIENT NOT FOCUSING , BUT STS "HELP ME BREATH."
[2019-05-08 12:43] LABS: pH Blood Venous 7.43 (7.34-7.37)
[2019-05-08 12:44] LABS: Base Excess Venous -6.6 mmol/L; Bicarbonate Venous 19.9 mmol/L (24.0-30.0); PCO2 Venous 26.4 mmHg (38-42); PO2 Venous 86.3 mmHg (38-42)
[2019-05-08 12:47] LABS: BASOPHILS ABSOLUTE AUTO 0.12 K/mm3 (0.00-0.23); BASOPHILS PERCENT AUTO 1 % (0-2); EOSINOPHILS ABSOLUTE AUTO 0.11 K/mm3 (0.00-0.68); EOSINOPHILS PERCENT AUTO 1 % (0-6); Hematocrit 30.7 % (33.0-51.0); Hemoglobin 9.4 g/dL (11.5-16.0); IMMATURE GRAN ABSOLUTE AUTO 0.13 K/mm3 (0.00-0.10); IMMATURE GRAN PERCENT AUTO 1 % (0-1); LYMPHOCYTES ABSOLUTE AUTO 1.73 K/mm3 (0.84-5.20); LYMPHOCYTES PERCENT AUTO 11 % (21-46); MONOCYTES ABSOLUTE AUTO 1.61 K/mm3 (0.16-1.47); MONOCYTES PERCENT AUTO 10 % (4-13); Mean Corpuscular HGB 27.6 pg (26.0-34.0); Mean Corpuscular HGB Conc 30.6 g/dL (31.5-36.5); Mean Corpuscular Volume 90 fL (80-100); Mean Platelet Volume 10.6 fL (9.1-12.4); NEUTROPHILS ABSOLUTE AUTO 12.03 K/mm3 (1.96-9.15); NEUTROPHILS PERCENT AUTO 77 % (41-73); Platelet Count 371 K/mm3 (150-400); RDW Standard Deviation 85.9 fL (35.1-46.3); White Blood Cell Count 15.73 K/mm3 (4.00-11.30)
[2019-05-08 13:07] LABS: Anion Gap 11 mmol/L (6-16); Blood Urea Nitrogen 20 mg/dL (8-24); Bun/Creatinine Ratio 32.3 (12.0-20.0); CO2, Blood 19 mmol/L (21-32); Calcium, Blood 7.8 mg/dL (8.5-10.1); Chloride, Blood 110 mmol/L (98-108); Creatinine, Blood 0.62 mg/dL (0.40-1.00); Glomerular Filtration Rate >60 (60-); Glucose, Blood 124 mg/dL (70-99); Potassium, Blood 4.1 mmol/L (3.5-5.5); Sodium, Blood 140 mmol/L (136-145)
--- NOTE | 2019-05-08 14:00 | NUR ---
TALKED TO CAREGIVER AND ST UNSURE IF CAN BRING IN PATIENTS MOTORIZED WHEELCHAIR. THEY WERE UNSURE IF HAVE A WAY TO GET IT HERE. THEY WILL LOOK INTO IT.
--- NOTE | 2019-05-08 15:21 | NUR ---
LEFT MESSAGE ON DR. SANTIAGO ANDRADE CELL PHONE ABOUT SWITCHING HEPARIN TO XARELTO. AWAITING CALL BACK.
--- NOTE | 2019-05-08 15:57 | NUR ---
CALLS BACK AND IS OK WITH STARTING XARELTO TONIGHT 2.5 MG BID.
--- NOTE | 2019-05-08 19:14 | NUR ---
ALERT. RESPONDS TO QUESTIONS. IV'S X 3 PATENT. REQUESTS TO BE MOVED OFTEN. WOUND VAC IN PLACE AND SUCTION WORKING. PER AND OK TO START ASPEN. ROBEL. GOGO PATENT. REPORT TO NIGHT RN
--- NOTE | 2019-05-08 23:54 | NUR ---
PT SAT ON bEDPAN FOR A BIT AND HAD A MEDIUM LOOSE STOOL, DARK BROWN. LINEN CHANGED, AND REPOSITIONED. BOWENS CARE COMPLETED. MEPLEX REMOVED, SMALL EAR OF SHEAR OVER L BUTTOCK. SMALLER MEPLEX APPLIED. BED LOW AND LOCKED. CALL QUINTANILLA WITHIN REACH
[2019-05-09 05:27] LABS: BASOPHILS ABSOLUTE AUTO 0.08 K/mm3 (0.00-0.23); BASOPHILS PERCENT AUTO 1 % (0-2); EOSINOPHILS ABSOLUTE AUTO 0.14 K/mm3 (0.00-0.68); EOSINOPHILS PERCENT AUTO 1 % (0-6); Hematocrit 27.6 % (33.0-51.0); Hemoglobin 8.3 g/dL (11.5-16.0); IMMATURE GRAN ABSOLUTE AUTO 0.08 K/mm3 (0.00-0.10); IMMATURE GRAN PERCENT AUTO 1 % (0-1); LYMPHOCYTES ABSOLUTE AUTO 1.49 K/mm3 (0.84-5.20); LYMPHOCYTES PERCENT AUTO 13 % (21-46); MONOCYTES ABSOLUTE AUTO 1.12 K/mm3 (0.16-1.47); MONOCYTES PERCENT AUTO 10 % (4-13); Mean Corpuscular HGB 27.2 pg (26.0-34.0); Mean Corpuscular HGB Conc 30.1 g/dL (31.5-36.5); Mean Corpuscular Volume 91 fL (80-100); Mean Platelet Volume 10.2 fL (9.1-12.4); NEUTROPHILS ABSOLUTE AUTO 8.54 K/mm3 (1.96-9.15); NEUTROPHILS PERCENT AUTO 75 % (41-73); NRBC ABSOLUTE 0.02 K/mm3 (0.00-0.02); NRBC Auto 0.2 /100 WBC (0.0-0.2); Platelet Count 317 K/mm3 (150-400); RDW Coefficient Variation 26.2 % (11.7-14.2); RDW Standard Deviation 86.1 fL (35.1-46.3); Red Blood Cell Count 3.05 M/mm3 (3.80-5.20); White Blood Cell Count 11.45 K/mm3 (4.00-11.30)
[2019-05-09 05:48] LABS: Magnesium, Blood 1.3 mg/dL (1.6-2.4)
[2019-05-09 05:49] LABS: Albumin, Blood 1.9 g/dL (3.4-5.0); Anion Gap 9 mmol/L (6-16); Blood Urea Nitrogen 20 mg/dL (8-24); Bun/Creatinine Ratio 31.5 (12.0-20.0); CO2, Blood 20 mmol/L (21-32); Calcium, Blood 7.6 mg/dL (8.5-10.1); Chloride, Blood 111 mmol/L (98-108); Creatinine, Blood 0.64 mg/dL (0.40-1.00); Glomerular Filtration Rate >60 (60-); Glucose, Blood 100 mg/dL (70-99); Phosphorus, Blood 2.9 mg/dL (2.5-4.9); Potassium, Blood 3.7 mmol/L (3.5-5.5); Sodium, Blood 140 mmol/L (136-145)
--- NOTE | 2019-05-09 06:53 | NUR ---
PATIENT WAS ABLE TO SLEEP FOR SEVERAL HOURS THIS SHIFT; SHE RECEIVED PAIUN MEDS 2X PER EMAR. SHE HAD A MEDIUM SIZE LOOSE STOOL. SHE HAD GOOD OUTPUT THRU HER BOWENS, SHE HAS A MPLEX ON HER R BUTTOCK.
--- NOTE | 2019-05-09 19:21 | NUR ---
Shift Summary A/Ox3, drifts on and off to sleep, but easily arousable. Pt did not have a really good appetite, had a little breakfast and dinner, but that was all. Medicated for L hip pain for which provided some relief. Pt is very uncomfortable and asks to reposition frequently t/o day. Mepilex on coccyx changed. Wound vac suction sealed and draining serosanguinous. No signs of seizure-like activity today. No other acute changes at this time.
--- NOTE | 2019-05-10 04:28 | NUR ---
SHIFT SUMMARY PT HAS BEEN PAINFUL AND RESTLESS MOST OF THE NIGHT. PT HAS BEEN REPOSITONED SEVERAL TIMES T/O THE NIGHT, BUT HAS FOUND IT DIFFICULT TO GET COMFORTABLE. PT COMPLAINS OF PAIN IN HER HIP AND LEFT STUMP. PAIN IS POSITIONAL. PT REPOSITIONED FREQUENTLY T/O THE SHIFT AND MEDICATED FOR PAIN PER EMAR ORDERS. PO PAIN MEDICATION DOES PROVIDE RELIEF. WOUND VAC IN PLACE PATENT IN DRAINING WITH A MODERATE AMOUNT OF RED SEROSANGUINEOUS DRAINAGE IN CANISTER. BOWENS IN PLACE PATENT AND DRAINING. IV ABX INFUSED ORDERED. THERE HAVE BEEN NO ACUTE CHANGES. BED IN LOWEST POSITION, CALL LIGHT WITHIN REACH. WILL CONTINUE TO MONITOR AND REPORT TO ONCOMING RN.
[2019-05-10 05:23] LABS: Hematocrit 29.4 % (33.0-51.0); Hemoglobin 8.9 g/dL (11.5-16.0); Mean Corpuscular HGB Conc 30.3 g/dL (31.5-36.5); Mean Corpuscular Volume 89 fL (80-100); Mean Platelet Volume 10.2 fL (9.1-12.4); NRBC ABSOLUTE 0.02 K/mm3 (0.00-0.02); NRBC Auto 0.2 /100 WBC (0.0-0.2); Platelet Count 336 K/mm3 (150-400); RDW Coefficient Variation 26.3 % (11.7-14.2)
[2019-05-10 05:44] LABS: Anion Gap 10 mmol/L (6-16); Blood Urea Nitrogen 21 mg/dL (8-24); Bun/Creatinine Ratio 30.9 (12.0-20.0); CO2, Blood 21 mmol/L (21-32); Calcium, Blood 7.8 mg/dL (8.5-10.1); Chloride, Blood 108 mmol/L (98-108); Creatinine, Blood 0.68 mg/dL (0.40-1.00); Glomerular Filtration Rate >60 (60-); Glucose, Blood 94 mg/dL (70-99); Magnesium, Blood 1.6 mg/dL (1.6-2.4); Phosphorus, Blood 3.1 mg/dL (2.5-4.9); Potassium, Blood 3.6 mmol/L (3.5-5.5); Sodium, Blood 139 mmol/L (136-145)
--- NOTE | 2019-05-10 17:33 | NUR ---
Clinical Visit; Pt is alert, oriented. She is enjoying TV. Myles appears to have good color, she is more animated today with conversation than this designer/writer has ever seen her. She is joking and laughing. She reports that she is certain that she had another stroke. She has had them before and states that this one in the event that happened on Saturday felt like the ones she has had before. She reports she feels additional residual weakness from the event. She states that she remembers it happening. Pt reports 7/10 pain level at this time. She is reporting that she may require additional surgical intervention on her leg. She starts joking about "when they creamate me . . ." Gentle counselor education professor at this time. Instructed her that during our last conversation, she did not feel like she was at end of life stage. She states, "well, I might be getting there, I don't know." Instructed that the hospice conversation can be revisited at any time, and that if she started suffering, that could be discussed. She verbalized understanding. No other concerns at this time. Will remain available. Updated nursing on pain level.
--- NOTE | 2019-05-10 18:34 | NUR ---
SHIFT SUMMARY- PT A/O PLESANT AND COOPERATIVE. PT HAS DRAIN IN THE L LOWER LEG AND IS DRAINING. PT RECIEVING IV ANTIBIOTICS. PT HAS SOME PAIN IN THE LOWER EXTREMITIES AND IS BEING TREATED PER THE MAR. PT SLEPT INTERMITENTLY THROUGHOUT THIS SHIFT. SHE IS A MAX ASSIST TO TURN IN BED. PT USING BEDPAN AND HAD SEVERAL BM THIS SHIFT. PT CALLS APPROPRIATLY.
--- NOTE | 2019-05-11 04:46 | NUR ---
RESTING QUIETLY WITH FEW INTERRUPTIONS THIS SHIFT. ASSISTED WITH REPOSITIONING, BUT PT PARTICIPATED WITH REPOSITOINING. IV ANTIBIOTICS ADMIN PER JUN - SEE MAR FOR DETAILS. ISOLATION PRECAUTIONS MAINTAINED. CALL LIGHT IN REACH.
[2019-05-11 05:00] LABS: Albumin, Blood 1.9 g/dL (3.4-5.0); Anion Gap 10 mmol/L (6-16); Blood Urea Nitrogen 20 mg/dL (8-24); Bun/Creatinine Ratio 26.9 (12.0-20.0); CO2, Blood 22 mmol/L (21-32); Calcium, Blood 7.8 mg/dL (8.5-10.1); Chloride, Blood 109 mmol/L (98-108); Creatinine, Blood 0.74 mg/dL (0.40-1.00); Glomerular Filtration Rate >60 (60-); Glucose, Blood 85 mg/dL (70-99); Phosphorus, Blood 3.3 mg/dL (2.5-4.9); Potassium, Blood 3.5 mmol/L (3.5-5.5); Sodium, Blood 141 mmol/L (136-145)
--- NOTE | 2019-05-11 15:04 | NUR ---
I, Elsa Najera a [facility] nursing informatics analyst, was given permission by Myles Rivera on May 11, 2019 to take care of Myles Rivera on May 12, 2019.
--- NOTE | 2019-05-11 15:25 | NUR ---
Spoke with Palliative Care Residential Finish Carpenter Shelly and discussed case. Shelly expresses concerns that Pt's pain is not being managed. Spoke with SUPPLY OFFICERNichole Garcia prior to entering Pt's room and Radha reports concerns regarding Pt's pain management. Pt resting in bed upon arrival. Assisted Radha with removing Pt from bedpan. Pt reports 5/10 pain in her left hip and describes it as burning. Pt reports 3/10 pain in bilateral shoulders. She reports repositioning helps manage shoulder pain. She describes shoulder pain as numbness and tingling. Spoke with Dr Lazo and reported Pt's pain. Dr Lazo reports continued repositioning and offering pain medications more frequent should help manage pain. Spoke with bedside RN Loan, discussed case, and reported Dr Lazo's recommendations. Palliative Care will remain available.
--- NOTE | 2019-05-11 16:52 | NUR ---
SHIFT SUMMARY PT RESTING QUIETLY DURING SHIFT REPORT. DENIED NEEDS AT THAT TIME. 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 BOWENS TO GRAVITY, DRAINING CL YELLOW URINE. PT IN CONTACT ISO FOR MRSA AND CRE. PT USING BED DOWNING FOR BM. PT REPOSITIONED FREQUENTLY AT TIMES. MEDICATED FOR C/O PAIN TO L STUMP. DIDN'T EAT MUCH FOR BREAKFAST OR LUNCH. DR NASCIMENTO IN TO SEE PT, FOLLOWED BY DR WELLS. WOUND VAC CHANGED BY DR WELLS; TO BE CHANGED AGAIN ON SAT. PT MEDICATED BY TIFFANY RN THIS AM FOR PAIN AND ANXIETY. PT TEARFUL R/T CURRENT STATUS. PT CALMED AFTER ATIVAN. RESTING QUIETLY AT THIS TIME. CALL LT IN REACH.
--- NOTE | 2019-05-11 16:54 | NUR ---
Myles was restless and reported "too much pain" for visit. She appears very ill. Informed RN of pt's pain. Also contacted palliative care RN for symptom management. I will continue to see Myles in coming days.
--- NOTE | 2019-05-12 04:05 | NUR ---
SHIFT SUMMARY ALERT, ANSWERS QUESTIONS APPROPRIATELY. COOPERATIVE WITH CARE. USES CALL LIGHT APPROPRIATELY. C/O PAIN/DISCOMFORT TO L HIP; MEDICATED PER EMAR. APPEARED TO REST OFF AND ON DURING THE NIGHT. VSS/AFEBRILE. WOUND VAC DRESSING REMAINS IN PLACE AND IS DRAINING TO SUCTION. REPOSITIONED PER REQUEST. NS RUNNING TKO TO LFA IV. NO ACUTE CHANGES NOTED. BED IN LOWEST POSITION. CALL LIGHT AND BELONGINGS WITHIN REACH. WCTM. REPORT TO ONCOMING RN.
[2019-05-12 05:25] LABS: Hematocrit 27.7 % (33.0-51.0); Hemoglobin 8.5 g/dL (11.5-16.0); Mean Corpuscular HGB 27.3 pg (26.0-34.0); Mean Corpuscular HGB Conc 30.7 g/dL (31.5-36.5); Mean Corpuscular Volume 89 fL (80-100); Platelet Count 320 K/mm3 (150-400); RDW Coefficient Variation 26.5 % (11.7-14.2); RDW Standard Deviation 85.7 fL (35.1-46.3); Red Blood Cell Count 3.11 M/mm3 (3.80-5.20); White Blood Cell Count 9.77 K/mm3 (4.00-11.30)
[2019-05-12 05:38] LABS: Albumin, Blood 1.9 g/dL (3.4-5.0); Anion Gap 9 mmol/L (6-16); Blood Urea Nitrogen 20 mg/dL (8-24); Bun/Creatinine Ratio 24.2 (12.0-20.0); CO2, Blood 22 mmol/L (21-32); Chloride, Blood 109 mmol/L (98-108); Creatinine, Blood 0.83 mg/dL (0.40-1.00); Glomerular Filtration Rate >60 (60-); Glucose, Blood 72 mg/dL (70-99); Potassium, Blood 3.4 mmol/L (3.5-5.5); Sodium, Blood 140 mmol/L (136-145)
--- NOTE | 2019-05-12 15:40 | NUR ---
SHIFT SUMMARY PT RESTING QUIETLY AT START OF SHIFT. MEDICATED FOR C/O PAIN WITH AM MEDS. PT IMPROVED SOME TODAY, BUT ALSO STILL MISERABLE AND IN PAIN. REQUESTS TO BE REPOSITIONED FREQUENTLY WHEN AWAKE. UNABLE TO TOLERATE SITTING UP, WHICH PUTS PRESSURE ON L STUMP WOUND. DR WELLS IN TO SEE PT AND CHK WOUND; NEW ORDERS PLACED FOR DR BRIGHT TO ASSESS PT'S L LEG. WOUND VAC REMAINS PATENT; TO BE CHANGED AGAIN TOMORROW OR THURS. REQUESTED PAIN MEDICATION FREQUENCY CHANGE TO ASSIST WITH BETTER PAIN MANAGEMENT, WHICH SEEMS TO BE HELPING. PT'S HOME CARE GIVERS IN TO SEE PT AND CALLED ABOUT D/C PLANNING. DR FOSTER REPORTED POSSIBLE D/C TO HOME WITH CARE GIVERS AND H/H IN A COUPLE OF DAYS. IMAGING IN EARLIER FOR EEG; HX OF SEIZURE X1. PT'S APPETITE HAS BEEN POOR THE PAST COUPLE OF DAYS. AM MEDS ADMIN WITH APPLESAUCE TODAY; PT DID BETTER SWALLOWING THAT WAY SHE DOES NOT WANT TO SIT UP HIGH ENOUGH TO TAKE PO PROPERLY. BED BATH BEING GIVEN AT THIS TIME. YEAST TO ABD SKIN FOLDS; NYSTATIN TO BE ORDERED. CALL LT IN REACH. PT ABLE TO USE.
--- NOTE | 2019-05-12 16:24 | NUR ---
THIS STUDENT RN WAS GIVEN PERMISSION BY PÉREZ RAMIREZ ON 05/12/19 TO TAKE PART IN HER CARE ON 05/13/19.
--- NOTE | 2019-05-13 04:22 | NUR ---
FOOD QUALITY TECHNICIAN SUMMARY PT A/O X4. PT COMPLAINS OF PAIN IN BILATERAL HIPS AND TAILBONE. MEDICATED FOR PAIN PER EMAR. PT CALLS APPROPRIATELY AND STAFF HAS BEEN IN FREUQENTLY THROUGHOUT THE NIGHT TO REPOSITION PT. PT SEEMS LIKE SHE CANNOT GET COMFORTABLT NO MATTER WHAT POSITION. SCAB ON RIGHT FOREARM/ARM BLED. GAUZE AND PRESSURE APPLIED TO OPENED SCAB. MEPLIX APPLIED TO RIGHT FOREARM. VSS, WILL CONTINUE TO MONITOR.
[2019-05-13 05:17] LABS: BASOPHILS PERCENT AUTO 1 % (0-2); EOSINOPHILS ABSOLUTE AUTO 0.23 K/mm3 (0.00-0.68); EOSINOPHILS PERCENT AUTO 2 % (0-6); Hematocrit 29.1 % (33.0-51.0); Hemoglobin 8.8 g/dL (11.5-16.0); IMMATURE GRAN ABSOLUTE AUTO 0.11 K/mm3 (0.00-0.10); IMMATURE GRAN PERCENT AUTO 1 % (0-1); LYMPHOCYTES ABSOLUTE AUTO 1.78 K/mm3 (0.84-5.20); LYMPHOCYTES PERCENT AUTO 17 % (21-46); MONOCYTES PERCENT AUTO 11 % (4-13); Mean Corpuscular HGB 27.2 pg (26.0-34.0); Mean Corpuscular HGB Conc 30.2 g/dL (31.5-36.5); Mean Corpuscular Volume 90 fL (80-100); Mean Platelet Volume 10.3 fL (9.1-12.4); NEUTROPHILS ABSOLUTE AUTO 6.91 K/mm3 (1.96-9.15); NEUTROPHILS PERCENT AUTO 68 % (41-73); Platelet Count 315 K/mm3 (150-400); RDW Coefficient Variation 26.5 % (11.7-14.2); RDW Standard Deviation 86.2 fL (35.1-46.3); Red Blood Cell Count 3.23 M/mm3 (3.80-5.20); White Blood Cell Count 10.23 K/mm3 (4.00-11.30)
[2019-05-13 05:55] LABS: Percent Saturation 24.1 % (15.0-50.0)
[2019-05-13 06:01] LABS: Alanine Aminotransfer (ALT/SGP <6 U/L (12-78); Albumin/Globulin Ratio 0.6 (0.8-1.8); Alk Phos 202 U/L (50-136); Anion Gap 10 mmol/L (6-16); Aspartate Aminotrans (AST/SGOT 8 U/L (12-37); Bilirubin, Total 0.5 mg/dL (0.1-1.0); Blood Urea Nitrogen 20 mg/dL (8-24); Bun/Creatinine Ratio 23.4 (12.0-20.0); CO2, Blood 22 mmol/L (21-32); Calcium, Blood 7.6 mg/dL (8.5-10.1); Chloride, Blood 111 mmol/L (98-108); Creatinine, Blood 0.85 mg/dL (0.40-1.00); Globulin, Blood 3.5 g/dL (2.2-4.0); Glomerular Filtration Rate >60 (60-); Glucose, Blood 93 mg/dL (70-99); Potassium, Blood 3.5 mmol/L (3.5-5.5); Sodium, Blood 143 mmol/L (136-145); Total Protein, Blood 5.5 g/dL (6.4-8.2)
--- NOTE | 2019-05-13 18:32 | NUR ---
DRESSING CHANGED TO WOUND VAC THIS SHIFT. PT WAS ABLE TO BE UP IN CHAIR WITH PT. NO ACUTE CHANGES TO PT. CALL LIGHT WITHIN REACH.
--- NOTE | 2019-05-14 04:54 | NUR ---
SHIFT SUMMARY PT IS A 69 Y/O FEMALE, ADMITTED FOR SURGICAL WOUND INFECTION. SHE IS A&O X 4, BEDBOUND AT BASELINE WITH BILATERAL AKA. PT HAS A WOUND VAC ON THE L STUMP WOUND, WITH MINIMAL OUTPUT AT THIS TIME. PT HAS A BOWENS IN PLACE, PATENT AND DRAINING. SHE WAS MEDICATED TWICE FOR PAIN WITH PRN HYDROCODONE, BOTH GENERAL CHRONIC PAIN AND PAIN IN HER L STUMP, WITH INTERMITTENT COMPLAINTS OF SOB THAT WERE TREATED WITH PRN BREATHING TREATMENTS. NO COMPLAINTS OF NAUSEA. VITAL SIGNS STABLE. NO OTHER ACUTE CHANGES IN PT CONDITION NOTED DURING THE NIGHT. WILL CONTINUE TO MONITOR AND TREAT PER EMAR UNTIL HAND OFF TO DAY SHIFT RN.
--- NOTE | 2019-05-14 16:15 | NUR ---
WOUND VAC WILL NOT BE AVAILBLE UNTIL TOMORROW FOR PATIENT TO GO HOME WITH. AWAITING RESULTS OF CT SCAN OF L HIP. DR. PARR INFORMED OF D/C DELAY. KENNA, THE PATIENTS SISTER WAS UPDATED AT PATIENTS REQUEST AND WILL PASS THE INFORMATION ON TO PATIENTS CAREGIVERS. LLOYD, PALLIATIVE CARE NURSE AT BEDSIDE TALKING WITH PATIENT.
--- NOTE | 2019-05-14 16:59 | NUR ---
PATIENT A/OX3, CONFUSED ABOUT DATE AND TIME AND FORGETFUL AT TIMES. VSS, ON RA. RT TX PRN. D/C ORDERS TODAY, BUT D/C HELD IN ORDER TO GET A WOUND VAC FOR HOME. PATIENT WILL D/C HOME WITH [facility] AND [facility]. [facility] GIVEN Q4 HOURS TO TREAT HIP/BACK/LEG PAIN. PATIENT QUITE ANXIOUS AT TIMES. PALLIATIVE CARE CONSULTING. WOUND VAC TO LLE WNL, SEROSANGUINOUS DRAINAGE. LAST CHANGED 05/13/19. BOWENS TO GRAVITY WITH ADEQUATE U/O. CALLS APPROPRIATELY FOR ASSISTANCE.
--- NOTE | 2019-05-14 17:11 | NUR ---
Pt showing signs of anxiety, needs a breathing treatment. After breathing treatment, pt received pain medication. She is resting comfortably at this time. Telephone order for hydroxyzine PRN for anxiety, per Dr. Castellon. Mariposa, nurse, reports that two tablets of norco every 4 hours appears to be adequate for pain control at this time. No other concerns. Pt will discharge tomorrow, per care managers. Will need a wound vac at home, followed by home heatlh.
[2019-05-14] MEDS ORDERED: AMOX875 PO (17:39)
[2019-05-14] MEDS ORDERED: LEVO750 PO (17:39)
[2019-05-14] MEDS ORDERED: LISI5 PO (17:39)
[2019-05-14] MEDS ORDERED: Pedi-Dri 100,0060 GM TOP (17:40)
--- NOTE | 2019-05-15 04:30 | NUR ---
SHIFT SUMMARY PT IS A 69 Y/O FEMALE, ADMITTED FOR A SURGICAL WOUND INFECTION IN HER R STUMP. PT CURRENTLY HAS A WOUND VAC IN PLACE, WITH MINIMAL AMOUNTS OF SANGUINEOUS DRAINAGE. PT REPORTED CHRONIC PAIN, AND WAS MEDICATED X2 WITH PRN HYDROCODONE. SHE WAS ALSO MEDICATED AT HS FOR ANXIETY WITH PRN ATARAX. NO COMPLAINTS OF NAUSEA OR SOB. VITAL SIGNS STABLE. NO ACUTE CHANGES IN PT CONDITION NOTED. WILL CONTINUE TO MONITOR AND TREAT PER EMAR UNTIL HAND OFF TO DAY SHIFT RN.
[2019-05-15] MEDS ORDERED: HYDHCL25 PO (11:10)
--- NOTE | 2019-05-15 18:15 | NUR ---
PATIENT A/OX4, TURNING Q2 HOURS. WOUND VAC TO LLE AKA WITH GOOD SUCTION WITH SEROSANG DRAINAGE. PATIENT WAS SUPPOSED TO D/C TODAY, BUT IT WAS HELD DUE TO WOUND VAC AUTHORIZATION. D/C PAPERWORK COMPLETE. MEDS FAXED TO [facility] IN [place] AND PICKED UP BY CAREGIVER. SCRIPT FOR [facility] GIVEN TO CAREGIVER TO HAVE FILLED. PATIENT WILL NEED GURNEY TRANSPORT HOME WITH [facility]. [facility] Q4 HOURS TO TREAT L HIP/BACK AND LLE PAIN. ATARAX GIVEN X1 FOR ANXIETY. PATIENT TAKES PILLS WHOLE IN [facility]. CALLS APPROPRIATELY FOR ASSISTANCE.
--- NOTE | 2019-05-16 04:22 | NUR ---
SHIFT SUMMARY PT ADMITTED FOR SURGICAL WOUND INFECTION. DNR CODE. EXPECTED TO DC SATURDAY IF HOME WOUND VAC CAN BE PROCURED. MASHA AKA. RECENT AKA ON LLE, HOSPITAL WOUND VAC IN PLACE. COMES FROM HER OWN [facility], EXPECTS TO DC BACK TO THERE. ADA DIET, ACHS. BEDBOUND, ELECTRIC WHEELCHAIR IS IN ROOM. 4+ GENERALIZED EDEMA. NEW WOUND FOUND ON RT STUMP, PHOTO IN CHART. 2 NEW SKIN ABRASIONS FOUND UNDER PANNUS, PHOTO IN CHART. ARMANI ODT ORDERED THIS SHIFT FOR NAUSEA. 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
--- NOTE | 2019-05-16 11:59 | NUR ---
review of discharge plan with nursing will notify amedysis and care managers
== END 2019-05-16 16:26 | disposition home health service (06) | DRG 857 ==
LOC: ER 16:14 → MEDS 18:47 → ENPENDDIS 05-14 14:03 → MEDS 05-16 16:26
PROVIDERS: Emergency Medicine; Hospitalist; Internal Medicine; Orthopaedic Surgery; ADMIT Internal Medicine
PROC: 0SBD0ZZ Excision of Left Knee Joint, Open Approach (ICD-10-PCS; 2019-05-07)
PROC: 0Y6D0Z3 Detachment at Left Upper Leg, Low, Open Approach (ICD-10-PCS; principal; 2019-05-07 14:30)
DX: T81.49XA Infection following a procedure, other surgical site, initial encounter (principal); I50.22 Chronic systolic (congestive) heart failure; D62 Acute posthemorrhagic anemia; E11.51 Type 2 diabetes mellitus with diabetic peripheral angiopathy without gangrene; J44.9 Chronic obstructive pulmonary disease, unspecified; K21.9 Gastro-esophageal reflux disease without esophagitis; Z95.1 Presence of aortocoronary bypass graft; Z87.891 Personal history of nicotine dependence; Z89.512 Acquired absence of left leg below knee; F32.9 Major depressive disorder, single episode, unspecified; I25.10 Atherosclerotic heart disease of native coronary artery without angina pectoris; N18.3 Chronic kidney disease, stage 3 (moderate); E87.6 Hypokalemia; R56.9 Unspecified convulsions; B96.89 Other specified bacterial agents as the cause of diseases classified elsewhere; E11.22 Type 2 diabetes mellitus with diabetic chronic kidney disease
CPT/HCPCS: 36415; 70450; 72192; 73560-LT; 80048; 80053; 80069; 80202; 81001; 82330; 82728; 82803; 82947; 83540; 83550; 83605; 83735; 83880; 85025; 85027; 85610; 85651; 86140; 86850; 86900; 86901; 86923; 87040; 87070; 87071; 87075; 87077; 87086; 87186; 87205; 88305; 88311; 93306; 94640; 94760; 95819; 96365; 96375; 97110; 97162; 97530; 99284-25; A9270; A9270-GY; J0290; J0610; J0690; J0696; J1644; J1956; J2060; J2250; J2405; J2704; J3010; J3370; J3475; J3480; J7030; J7050; J7060

== ENCOUNTER 2019-05-17 | Emergency (ER) | payer OTHER ==
[~2019-05-17] VITALS: Ht 157.5 cm; Wt 154.2 kg
[~2019-05-17] MED LIST changes: +ALBU90OI INH; +AMOX875 PO; +HYDHCL25 PO; +Pedi-Dri 100,0060 GM TOP; +SENNA LAXATIVE8.6 MG PO
[2019-05-17 00:30] LABS: BASOPHILS ABSOLUTE AUTO 0.11 K/mm3 (0.00-0.23); BASOPHILS PERCENT AUTO 1 % (0-2); EOSINOPHILS PERCENT AUTO 2 % (0-6); Hematocrit 29.4 % (33.0-51.0); Hemoglobin 9.1 g/dL (11.5-16.0); IMMATURE GRAN ABSOLUTE AUTO 0.13 K/mm3 (0.00-0.10); IMMATURE GRAN PERCENT AUTO 1 % (0-1); LYMPHOCYTES ABSOLUTE AUTO 2.16 K/mm3 (0.84-5.20); LYMPHOCYTES PERCENT AUTO 17 % (21-46); MONOCYTES PERCENT AUTO 13 % (4-13); Mean Corpuscular HGB 27.7 pg (26.0-34.0); Mean Corpuscular Volume 90 fL (80-100); Mean Platelet Volume 9.9 fL (9.1-12.4); NEUTROPHILS ABSOLUTE AUTO 8.24 K/mm3 (1.96-9.15); NEUTROPHILS PERCENT AUTO 66 % (41-73); Platelet Count 294 K/mm3 (150-400); RDW Coefficient Variation 26.5 % (11.7-14.2); RDW Standard Deviation 85.7 fL (35.1-46.3); Red Blood Cell Count 3.28 M/mm3 (3.80-5.20); White Blood Cell Count 12.44 K/mm3 (4.00-11.30)
[2019-05-17 00:54] LABS: Alanine Aminotransfer (ALT/SGP <6 U/L (12-78); Albumin, Blood 2.2 g/dL (3.4-5.0); Albumin/Globulin Ratio 0.5 (0.8-1.8); Alk Phos 203 U/L (50-136); Anion Gap 8 mmol/L (6-16); Aspartate Aminotrans (AST/SGOT 12 U/L (12-37); Bilirubin, Total 0.5 mg/dL (0.1-1.0); Blood Urea Nitrogen 23 mg/dL (8-24); Bun/Creatinine Ratio 21.5 (12.0-20.0); CO2, Blood 24 mmol/L (21-32); Calcium, Blood 7.5 mg/dL (8.5-10.1); Chloride, Blood 108 mmol/L (98-108); Creatinine, Blood 1.07 mg/dL (0.40-1.00); Globulin, Blood 4.2 g/dL (2.2-4.0); Glomerular Filtration Rate 54 (60-); Glucose, Blood 106 mg/dL (70-99); Potassium, Blood 3.1 mmol/L (3.5-5.5); Sodium, Blood 140 mmol/L (136-145); Total Protein, Blood 6.4 g/dL (6.4-8.2)
[2019-05-17 02:03] LABS: Magnesium, Blood 1.4 mg/dL (1.6-2.4)
== END 2019-05-17 04:00 | disposition home or self-care (01) ==
LOC: ER
PROVIDERS: Emergency Medicine
DX: E83.42 Hypomagnesemia (principal); E87.6 Hypokalemia; E86.0 Dehydration; Z88.5 Allergy status to narcotic agent; Z88.1 Allergy status to other antibiotic agents; Z91.013 Allergy to seafood; Z91.018 Allergy to other foods; Z79.899 Other long term (current) drug therapy; Z79.82 Long term (current) use of aspirin; E11.9 Type 2 diabetes mellitus without complications; Z86.73 Personal history of transient ischemic attack (TIA), and cerebral infarction without residual deficits; I11.0 Hypertensive heart disease with heart failure; I50.9 Heart failure, unspecified; E78.5 Hyperlipidemia, unspecified; Z87.891 Personal history of nicotine dependence
CPT/HCPCS: 36415; 71046; 80053; 83735; 85025; 93005; 93010; 94640; 96361; 96365; 99285-25; J3475; J7030

== ENCOUNTER 2019-05-17 05:53 | Emergency (ER) | payer OTHER ==
[~2019-05-17] VITALS: Ht 121.9 cm; Wt 90.7 kg
== END 2019-05-17 07:53 ==
LOC: ER 05:53
DX: I46.9 Cardiac arrest, cause unspecified (principal); I10 Essential (primary) hypertension; E11.9 Type 2 diabetes mellitus without complications; Z66 Do not resuscitate; Z86.73 Personal history of transient ischemic attack (TIA), and cerebral infarction without residual deficits; Z87.891 Personal history of nicotine dependence; Z79.899 Other long term (current) drug therapy; Z79.82 Long term (current) use of aspirin; Z79.51 Long term (current) use of inhaled steroids
CPT/HCPCS: 99285